=== PATIENT | female | born 1960 | race Caucasian/White ===

== ENCOUNTER 2018-06-23 08:33 | Inpatient (IN) ==
[2018-06-23] MEDS ORDERED: Morphine Inj 4 MG/ML Vial IV.PUSH ONE (09:07)
[2018-06-23] MEDS ORDERED: Sod Chloride 0.9% Inj 1,000 ML IV.CONT SCH (09:15)
[2018-06-23 09:26] LABS: Baso % (Auto) 0.4 % (0.0-2.0); Eos # (Auto) 0.1 th/mm3 (0.0-0.4); Eos % (Auto) 0.8 % (0.0-4.0); Hematocrit 40.4 % (35.0-46.0); Hemoglobin 14.1 gm/dL (11.6-15.3); Lymph # (Auto) 1.8 th/mm3 (1.0-4.8); Lymph % (Auto) 26.1 % (9.0-44.0); Mean Corpuscular HGB Conc 34.9 % (32.0-36.0); Mean Corpuscular Hemoglobin 31.5 pg (27.0-34.0); Mean Corpuscular Volume 90.3 fL (80.0-100.0); Mean Platelet Volume 8.4 fL (7.0-11.0); Mono # (Auto) 0.2 th/mm3 (0.0-0.9); Mono % (Auto) 2.9 % (0.0-8.0); Neut # (Auto) 4.7 th/mm3 (1.8-7.7); Neut % (Auto) 69.8 % (16.0-70.0); Platelet Count 222 th/mm3 (150-450); Red Blood Count 4.47 mil/mm3 (4.00-5.30); Red Cell Distribution Width 15.3 % (11.6-17.2); White Blood Count 6.8 th/mm3 (4.0-11.0)
[2018-06-23 09:57] LABS: Calcium 9.1 mg/dL (8.5-10.1)
[2018-06-23 09:58] LABS: Albumin 2.8 g/dL (3.4-5.0); Carbon Dioxide 28.6 meq/L (21.0-32.0); Glucose,Random 124 mg/dL (74-106); Lipase 111 U/L (73-393)
[2018-06-23 10:01] LABS: Alanine Aminotransferase 47 U/L (10-53); Glomerular Filtration Rate 57 mL/min (>89)
[2018-06-23 10:02] LABS: Total Protein 6.9 g/dL (6.4-8.2)
[2018-06-23 10:04] LABS: Alkaline Phosphatase 85 U/L (45-117); Anion Gap 9 meq/L (5-15); Chloride 106 meq/L (98-107); Sodium 144 meq/L (136-145)
[2018-06-23 10:11] LABS: Blood Urea Nitrogen 27 mg/dL (7-18)
[2018-06-23 10:18] LABS: Aspartate Aminotransferase 21 U/L (15-37)
--- NOTE | 2018-06-23 10:37 | ED ---
HPI General Chief Complaint: Abdominal Pain Stated Complaint: EVAC/Abdom pain Time Seen by Provider: 06/23/18 08:56 Source: patient and family Mode of arrival: ambulatory Limitations: no limitations History of Present Illness HPI narrative: 57-year-old female complains of abdominal pain with nausea vomiting. Patient states that the symptoms started last night. Patient states that the pain is sharp pain stabbing pain localized the right lower quadrant of the abdomen. Patient denies any pain radiation. Patient denies any fever chills. Patient denies any dysuria frequency. Patient denies any vaginal discharge or bleeding. Patient status post 3 in the past. Patient denies any history kidney stone. MD complaint: abdominal pain Onset (ago): hour(s) Pain Consistency: constant Location: RLQ Severity: severe Severity scale (1-10): 10 Quality: stabbing and sharp Radiation: none Migration to: no migration Relieving factors: nothing Exacerbating factors: nothing Associated symptoms: nausea and vomiting Related Data Home Medications Medication Instructions Recorded Confirmed allopurinol 100 mg PO TID 06/23/18 06/23/18 atorvastatin 10 mg PO DAILY 06/23/18 06/23/18 azelastine 1 spray INTRANASAL DAILY 06/23/18 06/23/18 benzonatate 100 mg PO TID PRN 06/23/18 06/23/18 budesonide 0.5 mg INHALATION Q12H 06/23/18 06/23/18 budesonide-formoterol [Symbicort] 2 puff INHALATION BID 06/23/18 06/23/18 cyclobenzaprine 10 mg PO TID PRN 06/23/18 06/23/18 fluticasone 2 spray INTRANASAL DAILY 06/23/18 06/23/18 fluticasone [Flovent HFA] 1 puff INHALATION BID 06/23/18 06/23/18 hydrocodone-acetaminophen 1 tab PO HS 06/23/18 06/23/18 ipratropium bromide 0.5 mg INHALATION Q4H PRN 06/23/18 06/23/18 levofloxacin 500 mg PO DAILY 06/23/18 06/23/18 lisinopril 40 mg PO DAILY 06/23/18 06/23/18 losartan 50 mg PO DAILY 06/23/18 06/23/18 methylprednisolone 4 mg PO DAILY 06/23/18 06/23/18 montelukast 10 mg PO QPM 06/23/18 06/23/18 nabumetone 750 mg PO BID 06/23/18 06/23/18 omeprazole 40 mg PO DAILY 06/23/18 06/23/18 prednisone 06/23/18 pregabalin [Lyrica] 50 mg PO HS 06/23/18 06/23/18 sertraline 50 mg PO DAILY 06/23/18 06/23/18 tiotropium bromide [Spiriva 2 puff INHALATION DAILY 06/23/18 06/23/18 Respimat] tolterodine 4 mg PO DAILY 06/23/18 06/23/18 voriconazole 200 mg PO Q12H 06/23/18 06/23/18 Allergies Allergy/AdvReac Type Severity Reaction Status Date / Time chlorhexidine Allergy Severe Skin Verified 06/23/18 08:54 blisters diclofenac Allergy Severe Hives Verified 06/23/18 08:54 tramadol Allergy Severe Hives Verified 06/23/18 08:54 adhesive Allergy Intermediate Rash Verified 06/23/18 08:54 ketorolac Allergy Intermediate Rash Verified 06/23/18 08:54 Review of Systems ROS: all other systems reviewed are negative PMFSH Social History Social History Substance History: No History of Abuse Smoking Status: Never smoker How Often Do You Have a Drink Containing Alcohol: Never Recent Travel in [facility] within the Last 8 Weeks: No Recent Out of Country Travel within the Last 8 Weeks: No Immunization History Tetanus Immunization: <5 Years Hx Influenza Vaccine This Season: Yes Exam Narrative Exam Narrative: GENERAL: Well-nourished, well-developed patient. SKIN: Focused skin assessment warm/dry. HEAD: Normocephalic. EYES: No scleral icterus. No injection or drainage. NECK: Supple, trachea midline. No JVD or lymphadenopathy. CARDIOVASCULAR: Regular rate and rhythm without murmurs, gallops, or rubs. RESPIRATORY: Breath sounds equal bilaterally. No accessory muscle use. GASTROINTESTINAL: Abdomen soft, nondistended. Patient has moderate tenderness on palpation right lower quadrant of the abdomen. No rebound tenderness. No mass. MUSCULOSKELETAL: No cyanosis, or edema. BACK: Nontender without obvious deformity. No CVA tenderness. Neurologic exam normal. Course Initial Documented Vital Signs Temperature 97.8 F 06/23/18 08:44 Pulse Rate 122 H 06/23/18 08:44 Respiratory Rate 20 06/23/18 08:44 Blood Pressure 138/88 06/23/18 08:44 Pulse Oximetry 96 06/23/18 08:44 Last Documented Vital Signs Temperature 97.8 F 06/23/18 08:44 Pulse Rate 113 H 06/23/18 10:48 Respiratory Rate 20 06/23/18 10:48 Blood Pressure 83/45 L 06/23/18 10:48 Pulse Oximetry 93 L 06/23/18 10:48 Medical Decision Making MDM Narrative Medical decision making narrative: 57-year-old female with right lower quadrant abdominal pain and nausea vomiting. Normal saline solution 1 25 cc an hour. Morphine 4 mg IV. Zofran 4 mg IV. Differential Diagnosis Differential Diagnosis: Differential diagnosis including colitis, appendicitis, ovarian cyst, ovarian torsion, ectopic , nephrolithiasis, pyelonephritis. Lab Data Lab results reviewed: Yes I reviewed the patient's lab results. Result diagrams: 06/23/18 09:20 06/23/18 09:20 Lab Results 06/23/18 06/23/18 Range/Units 09:20 09:20 CBC w Diff Auto diff final WBC 6.8 (4.0-11.0) th/mm3 RBC 4.47 (4.00-5.30) mil/mm3 Hgb 14.1 (11.6-15.3) gm/dL Hct 40.4 (35.0-46.0) % MCV 90.3 (80.0-100.0) fL MCH 31.5 (27.0-34.0) pg MCHC 34.9 (32.0-36.0) % RDW 15.3 (11.6-17.2) % Plt Count 222 (150-450) th/mm3 MPV 8.4 (7.0-11.0) fL Neut % (Auto) 69.8 (16.0-70.0) % Lymph % (Auto) 26.1 (9.0-44.0) % [place] % (Auto) 2.9 (0.0-8.0) % Eos % (Auto) 0.8 (0.0-4.0) % Baso % (Auto) 0.4 (0.0-2.0) % Neut # (Auto) 4.7 (1.8-7.7) th/mm3 Lymph # (Auto) 1.8 (1.0-4.8) th/mm3 [place] # (Auto) 0.2 (0.0-0.9) th/mm3 Eos # (Auto) 0.1 (0.0-0.4) th/mm3 Baso # (Auto) 0.0 (0.0-0.2) th/mm3 WBC Differential . Differential Comment . Sodium 144 (136-145) meq/L Potassium 4.0 (3.5-5.1) meq/L Chloride 106 (98-107) meq/L Carbon Dioxide 28.6 (21.0-32.0) meq/L Anion Gap 9 (5-15) meq/L BUN 27 H (7-18) mg/dL Creatinine 1.00 (0.50-1.00) mg/dL Estimated GFR 57 L (>89) mL/min Random Glucose 124 H (74-106) mg/dL Calcium 9.1 (8.5-10.1) mg/dL Total Bilirubin 0.7 (0.2-1.0) mg/dL AST 21 (15-37) U/L ALT 47 (10-53) U/L Alkaline Phosphatase 85 (45-117) U/L Total Protein 6.9 (6.4-8.2) g/dL Albumin 2.8 L (3.4-5.0) g/dL Lipase 111 (73-393) U/L Imaging Data Attestation: I personally reviewed and interpreted this imaging study as follows : Radiologist's impression: Abdomen/Pelvis CT 06/23/18 09:07 CONCLUSION: 1. There is pneumoperitoneum caused by perforation of the sigmoid colon secondary to diverticulitis. Small pericolonic fluid collection predominately contains air measuring 6.2 x 3.5 cm. Discharge Plan Discharge Disposition Patient Disposition: 30 Still Patient Discharge Details Diagnosis: Diverticulitis of colon with perforation Physicians Team ED Provider: Martín Lewis Primary Care Provider: Dmitriy Lewis Rxs /Orders / Referrals /Forms Prescriptions: No Action losartan 50 mg Tablet 50 mg PO DAILY RF: 0 cyclobenzaprine 10 mg Tablet 10 mg PO TID PRN (Reason: Pain) RF: 0 nabumetone 750 mg Tablet 750 mg PO BID RF: 0 atorvastatin 10 mg Tablet 10 mg PO DAILY RF: 0 tolterodine 4 mg Capsule,Extended Release 24hr 4 mg PO DAILY RF: 0 methylprednisolone 4 mg Tablet 4 mg PO DAILY RF: 0 allopurinol 100 mg Tablet 100 mg PO TID RF: 0 omeprazole 40 mg Capsule,Delayed Release(Dr/Ec) 40 mg PO DAILY RF: 0 prednisone 10 mg Tablets,Dose Pack RF: 0 benzonatate 100 mg Capsule 100 mg PO TID PRN (Reason: Cough) RF: 0 hydrocodone-acetaminophen 7.5-325 mg Tablet 1 tab PO HS RF: 0 budesonide 0.5 mg/2 mL Suspension For Nebulization 0.5 mg INHALATION Q12H RF: 0 montelukast 10 mg Tablet 10 mg PO QPM RF: 0 levofloxacin 500 mg Tablet 500 mg PO DAILY RF: 0 lisinopril 40 mg Tablet 40 mg PO DAILY RF: 0 fluticasone 50 mcg/actuation [place],Suspension 2 spray INTRANASAL DAILY RF: 0 sertraline 50 mg Tablet 50 mg PO DAILY RF: 0 ipratropium bromide 0.02 % Solution 0.5 mg INHALATION Q4H PRN (Reason: Shortness Of Breath) RF: 0 fluticasone [Flovent HFA] 110 mcg/actuation Hfa Aerosol Inhaler 1 puff INHALATION BID RF: 0 voriconazole 200 mg Tablet 200 mg PO Q12H RF: 0 pregabalin [Lyrica] 50 mg Capsule 50 mg PO HS RF: 0 budesonide-formoterol [Symbicort] 160-4.5 mcg/actuation Hfa Aerosol Inhaler 2 puff INHALATION BID RF: 0 azelastine 0.15 % (205.5 mcg) [place],Non-Aerosol 1 spray INTRANASAL DAILY RF: 0 tiotropium bromide [Spiriva Respimat] 1.25 mcg/actuation Mist 2 puff INHALATION DAILY RF: 0 Discharge Interventions Interventions: Vital Signs Last Done: 06/23/18 10:48 Status ED Status: With Doctor
--- NOTE | 2018-06-23 10:42 | CT ---
EXAM DATE: 06/23/2018 10:30 AM EDT AGE/SEX: 57 years / Female INDICATIONS: Right lower quadrant pain. CLINICAL DATA: This is the patient's initial encounter. Patient reports that signs and symptoms have been present for 1 day and indicates a pain score of 8/10. MEDICAL/SURGICAL HISTORY: None. None. ORAL CONTRAST: No oral contrast ingested. RADIATION DOSE: 22.35 CTDI (mGy) COMPARISON: [facility], CT ABDOMEN & PELVIS W CONTRAST, 09/09/2011. . TECHNIQUE: Multiple contiguous axial images were obtained through the abdomen and pelvis following b olus infusion of 95 ml Omnipaque 350 (iohexol) nonionic water-soluble contrast as a single exam dos e. No oral contrast ingested. Using automated exposure control and adjustment of the mA and/or kV ac cording to patient size, radiation dose was kept as low as reasonably achievable to obtain optimal di agnostic quality images. DICOM format image data is available electronically for review and comparis on. FINDINGS: Lower Lungs: The visualized lower lungs are clear. Liver: The liver has a homogeneous density without space-occupying lesion. There is no dilation of th e biliary tree. Spleen: Homogeneous density without enlargement. Pancreas: Unremarkable without mass or calcification. Kidneys: Normal in size and shape. No evidence of mass or hydronephrosis. Adrenal Glands: Unremarkable. Aorta: The aorta and proximal iliac vessels are grossly unremarkable without aneurysmal dilation. Bowel/Mesentery: There is diverticulitis of the sigmoid colon with large amount of pneumoperitoneum. Colonic fluid collection is seen adjacent to the sigmoid colon measuring 6.2 x 3.5 cm which contains minimal fluid and extraluminal air. Copious amount of stool throughout the descending colon. Abdominal Wall: Intact. Retroperitoneum: No evidence of adenopathy in the retrocrural, para-aortic, or deep pelvic regions. Bladder: Contours are smooth. Reproductive Organs: No abnormal masses or calcifications seen. Inguinal: The inguinal region is unremarkable without evidence of adenopathy. Bony Structures: Unremarkable. CONCLUSION: 1. There is pneumoperitoneum caused by perforation of the sigmoid colon secondary to diverticulitis. Small pericolonic fluid collection predominately contains air measuring 6.2 x 3.5 cm. Electronically signed by: Dorian Tabares MD 06/23/2018 10:40 AM EDT
[2018-06-23] MEDS ORDERED: Sod Chloride 0.9% Inj 1,000 ML IV.SIG ONE ×2 (10:52→13:40)
[2018-06-23] MEDS: Sodium Chlor 0.9% Inj 250 ML IV.SIG SCH ×4 (11:00→18:39)
[2018-06-23] MEDS ORDERED: Phenylephrine/NS 1000 MCG/10ML Syringe IV.PUSH ONE (12:00)
[2018-06-23] MEDS ORDERED: Succinylcholine Inj 100 MG/5 ML Syringe IV.PUSH ONE (12:00)
[2018-06-23] MEDS ORDERED: fentaNYL Citrate Inj 100 MCG/2 ML Ampul IV PUSH PRN (14:03)
--- NOTE | 2018-06-23 14:36 | P.HPCC ---
History of Present Illness Service: Critical care medicine Primary Care Physician: Dmitriy Lewis MD Chief Complaint: Abdominal pain, severe History of Present Illness: This 57-year-old woman developed severe left-sided abdominal pain and presented to the [facility] emergency department afebrile and without white blood cell count elevation. CAT scan of the abdomen revealed a large amount of contained peritoneal air surrounding a area of perforated diverticulitis in the sigmoid colon. She is tachycardic and moderately hypotensive considering her normal hypertensive state. By definition she is in severe sepsis and a fluid resuscitation was begun in the [place] emergency department by Dr. Lewis. Arrangements were made to rapidly transfer her to the [facility] hospital surgical intensive care unit where I have met her on her arrival. Her care is complicated by a crescendo pattern of asthma which is required several hospitalizations recently at [facility]. Most recently she has been on a high-dose steroid taper and is down to prednisone 30 mg daily. She has been evaluated previously by a dishtank operator for reactive airway disease, possibly related to mold exposure according to her records. - Diagnosis (1) Severe sepsis (2) Tachycardia (3) Diverticulitis of colon with perforation Inpatient Certification: I certify that the inpatient services were ordered in accordance with Medicare regulations governing the order. This includes certification that hospital inpatient services are reasonable and necessary and in the case of services not specified as inpatient-only under 42 CFR 419.22(n), that they are appropriately provided as inpatient services in accordance to with the 2-midnight benchmark under 43 CFR 412.3(e) Estimated Total Length of Stay (Days): 5 Plans for Post Hospital Care: Home Review of Systems Abdominal pain, chills, constipation. Shortness of breath. 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 - Medical History Medical History: Medical History (Last Reviewed 06/24/18 @ 06:38 by Caio Byers) Asthma Hypertension after donor nephrectomy requiring medication - Surgical History Surgical History: Surgical History (Last Reviewed 06/24/18 @ 06:38 by Caio Byers) H/O abdominal hysterectomy H/O sinus surgery History of surgery on arm Hx of tonsillectomy Previous section - Tobacco History Smoking Status: Never smoker - Alcohol History How Often Do You Have a Drink Containing Alcohol: Never - Substance Use History Substance History: No History of Abuse - Travel History Recent Travel in the [place] Within the Last 8 Weeks: No Recent Travel Out of the Country Within the Last 8 Weeks: No - Immunization History Tetanus Immunization: <5 Years Hx Influenza Vaccine This Season: Yes Medications and Allergies Active Medications: Active Medications Albuterol (Duoneb Neb (Prn)) 1 ampul NEB Q2HR NEB PRN PRN Reason: WHEEZING Famotidine (Pepcid Pf Inj) 20 mg IV.PUSH Q12HR SHANDRA Fentanyl Citrate (Fentanyl Inj) 50 mcg IV PUSH Q1H PRN PRN Reason: Pain scale 6-10, &/or sedation Sodium Chloride (Ns Inj) 1,000 mls @ 125 mls/hr IV.CONT .Q8H SHANDRA Stop: 06/23/18 17:14 Last Admin: 06/23/18 09:14 Dose: 125 mls/hr Sodium Chloride (Ns Inj) 250 mls @ 15 mls/hr IV.SIG ONCE SHANDRA Stop: 06/24/18 03:39 Piperacillin/Tazobactam/Dextrose (Zosyn 4.5 Gm Premix) 4.5 gm in 100 mls @ 200 mls/hr IV.SIG Q6H SHANDRA Ondansetron HCl (Zofran Inj) 4 mg IV.PUSH Q6H PRN PRN Reason: NAUSEA OR VOMITING Sodium Chloride (Ns Flush) 2 ml IV.FLUSH BID SHANDRA Sodium Chloride (Ns Flush) 2 ml IV.FLUSH PRN PRN PRN Reason: FLUSH AFTER USING IV ACCESS Home Medications Medication Instructions Recorded Confirmed allopurinol 100 mg PO TID 06/23/18 06/23/18 atorvastatin 10 mg PO DAILY 06/23/18 06/23/18 azelastine 1 spray INTRANASAL DAILY 06/23/18 06/23/18 benzonatate 100 mg PO TID PRN 06/23/18 06/23/18 budesonide 0.5 mg INHALATION Q12H 06/23/18 06/23/18 budesonide-formoterol [Symbicort] 2 puff INHALATION BID 06/23/18 06/23/18 cyclobenzaprine 10 mg PO TID PRN 06/23/18 06/23/18 fluticasone 2 spray INTRANASAL DAILY 06/23/18 06/23/18 fluticasone [Flovent HFA] 1 puff INHALATION BID 06/23/18 06/23/18 hydrocodone-acetaminophen 1 tab PO HS 06/23/18 06/23/18 ipratropium bromide 0.5 mg INHALATION Q4H PRN 06/23/18 06/23/18 levofloxacin 500 mg PO DAILY 06/23/18 06/23/18 lisinopril 40 mg PO DAILY 06/23/18 06/23/18 losartan 50 mg PO DAILY 06/23/18 06/23/18 methylprednisolone 4 mg PO DAILY 06/23/18 06/23/18 montelukast 10 mg PO QPM 06/23/18 06/23/18 nabumetone 750 mg PO BID 06/23/18 06/23/18 omeprazole 40 mg PO DAILY 06/23/18 06/23/18 prednisone 06/23/18 pregabalin [Lyrica] 50 mg PO HS 06/23/18 06/23/18 sertraline 50 mg PO DAILY 06/23/18 06/23/18 tiotropium bromide [Spiriva 2 puff INHALATION DAILY 06/23/18 06/23/18 Respimat] tolterodine 4 mg PO DAILY 06/23/18 06/23/18 voriconazole 200 mg PO Q12H 06/23/18 06/23/18 Allergies Allergy/AdvReac Type Severity Reaction Status Date / Time chlorhexidine Allergy Severe Skin Verified 06/23/18 08:54 blisters diclofenac Allergy Severe Hives Verified 06/23/18 08:54 tramadol Allergy Severe Hives Verified 06/23/18 08:54 adhesive Allergy Intermediate Rash Verified 06/23/18 08:54 ketorolac Allergy Intermediate Rash Verified 06/23/18 08:54 Home Medications Medication Instructions Recorded Confirmed Type allopurinol 100 mg PO TID 06/23/18 06/23/18 History atorvastatin 10 mg PO DAILY 06/23/18 06/23/18 History azelastine 1 spray INTRANASAL DAILY 06/23/18 06/23/18 History benzonatate 100 mg PO TID PRN 06/23/18 06/23/18 History budesonide 0.5 mg INHALATION Q12H 06/23/18 06/23/18 History budesonide-formoterol [Symbicort] 2 puff INHALATION BID 06/23/18 06/23/18 History cyclobenzaprine 10 mg PO TID PRN 06/23/18 06/23/18 History fluticasone 2 spray INTRANASAL DAILY 06/23/18 06/23/18 History fluticasone [Flovent HFA] 1 puff INHALATION BID 06/23/18 06/23/18 History hydrocodone-acetaminophen 1 tab PO HS 06/23/18 06/23/18 History ipratropium bromide 0.5 mg INHALATION Q4H PRN 06/23/18 06/23/18 History levofloxacin 500 mg PO DAILY 06/23/18 06/23/18 History lisinopril 40 mg PO DAILY 06/23/18 06/23/18 History losartan 50 mg PO DAILY 06/23/18 06/23/18 History methylprednisolone 4 mg PO DAILY 06/23/18 06/23/18 History montelukast 10 mg PO QPM 06/23/18 06/23/18 History nabumetone 750 mg PO BID 06/23/18 06/23/18 History omeprazole 40 mg PO DAILY 06/23/18 06/23/18 History prednisone 06/23/18 History pregabalin [Lyrica] 50 mg PO HS 06/23/18 06/23/18 History sertraline 50 mg PO DAILY 06/23/18 06/23/18 History tiotropium bromide [Spiriva 2 puff INHALATION DAILY 06/23/18 06/23/18 History Respimat] tolterodine 4 mg PO DAILY 06/23/18 06/23/18 History voriconazole 200 mg PO Q12H 06/23/18 06/23/18 History Results - Labs CBC & Chem 7: 06/24/18 05:30 06/24/18 05:30 Labs: Short CBC 06/23/18 Range/Units 09:20 WBC 6.8 (4.0-11.0) th/mm3 Hgb 14.1 (11.6-15.3) gm/dL Hct 40.4 (35.0-46.0) % Plt Count 222 (150-450) th/mm3 BMP 06/23/18 09:20 Sodium 144 Potassium 4.0 Chloride 106 Carbon Dioxide 28.6 BUN 27 H Creatinine 1.00 Calcium 9.1 Liver Function 06/23/18 Range/Units 09:20 Total Bilirubin 0.7 (0.2-1.0) mg/dL AST 21 (15-37) U/L ALT 47 (10-53) U/L Alkaline Phosphatase 85 (45-117) U/L Albumin 2.8 L (3.4-5.0) g/dL - Imaging Impressions Abdomen/Pelvis CT 06/23/18 09:07 CONCLUSION: 1. There is pneumoperitoneum caused by perforation of the sigmoid colon secondary to diverticulitis. Small pericolonic fluid collection predominately contains air measuring 6.2 x 3.5 cm. Exam Vital signs: Vital Signs 06/23/18 08:44 06/23/18 09:17 06/23/18 10:48 Temperature 97.8 F Pulse Rate 122 H 119 H 113 H Respiratory Rate 20 20 20 Blood Pressure 138/88 153/93 H 83/45 L Pulse Oximetry 96 95 93 L 06/23/18 11:11 06/23/18 11:49 06/23/18 13:10 Temperature Pulse Rate 114 H 113 H 120 H Respiratory Rate 20 20 20 Blood Pressure 119/65 101/51 L 109/56 L Pulse Oximetry 94 L 06/23/18 13:45 Temperature Pulse Rate 126 H Respiratory Rate 20 Blood Pressure 97/56 L Pulse Oximetry Intake & Output 06/22/18 06/23/18 06/23/18 18:59 06:59 18:59 Weight 103.873 kg Narrative: General: Severe distress from abdominal pain Head: Atraumatic, flushed Neck: Supple airway widely patent Lungs: Light wheezes, good bilateral air movement Heart: Normal S1-S2, regular rate and rhythm, no JVD. Abdomen: Moderately distended with firm guarding. Diffuse peritoneal irritation with impressive rebound pain. Bowel sounds quiet. Extremities: Flushed: Well-perfused. Neuro: Anxious, severe distress from abdominal pain. Oriented 3, conversant, appropriate. Moves 4 limbs to command. Caprini VTE Risk Assessment Caprini VTE Risk Assessment: Moderate/High Risk (score >= 2) VTE Pharmacological Exception Reason: High risk for bleeding Caprini Risk Assessment Model: Point Value = 1 Point Value = 2 Point Value = 3 Point Value = 5 Age 41-60 Minor surgery BMI > 25 kg/m2 Swollen legs Varicose veins or History of unexplained or recurrent spontaneous Oral contraceptives or hormone replacement Sepsis (< 1 month) Serious lung disease, including pneumonia (< 1 month) Abnormal pulmonary function Acute myocardial infarction Congestive heart failure (< 1 month) History of inflammatory bowel disease Medical patient at bed rest Age 61-74 Arthroscopic surgery Major open surgery (> 45 min) Laparoscopic surgery (> 45 min) Malignancy Confined to bed (> 72 hours) Immobilizing plaster cast Central venous access Age >= 75 History of VTE Family history of VTE Factor V Leiden Prothrombin [id number] Lupus anticoagulant Anticardiolipin antibodies Elevated serum homocysteine Heparin-induced thrombocytopenia Other congenital or acquired thrombophilia Stroke (< 1 month) Elective arthroplasty Hip, pelvis, or leg fracture Acute spinal cord injury (< 1 month) Prophylaxis Regimen: Total Risk Factor Score Risk Level Prophylaxis Regimen 0-1 Low Early ambulation 2 Moderate Order ONE of the following: *Sequential Compression Device (SCD) *Heparin 5000 units SQ BID 3-4 Higher Order ONE of the following medications: *Heparin 5000 units SQ TID *Enoxaparin/Lovenox 40 mg SQ daily (WT < 150 kg, CrCl > 30 mL/min) *Enoxaparin/Lovenox 30 mg SQ daily (WT < 150 kg, CrCl > 10-29 mL/min) *Enoxaparin/Lovenox 30 mg SQ BID (WT < 150 kg, CrCl > 30 mL/min) AND/OR *Sequential Compression Device (SCD) 5 or more Highest Order ONE of the following medications: *Heparin 5000 units SQ TID (Preferred with Epidurals) *Enoxaparin/Lovenox 40 mg SQ daily (WT < 150 kg, CrCl > 30 mL/min) *Enoxaparin/Lovenox 30 mg SQ daily (WT < 150 kg, CrCl > 10-29 mL/min) *Enoxaparin/Lovenox 30 mg SQ BID (WT < 150 kg, CrCl > 30 mL/min) AND *Sequential Compression Device (SCD) Assessment and Plan - Problem List (1) Severe sepsis Code(s): A41.9 - Sepsis, unspecified organism; R65.20 - Severe sepsis without septic shock Status: Acute (2) Tachycardia Code(s): R00.0 - Tachycardia, unspecified Status: Acute (3) Diverticulitis of colon with perforation Code(s): K57.20 - Diverticulitis of large intestine with perforation and abscess without bleeding Status: Acute - Assessment and Plan Plan: Plan: Neuro: -Continuous infusion fentanyl basal analgesia -Supplement with every hour as needed fentanyl 50 mcg -Avoid oversedation due to likely obstructive sleep apnea Cardiovascular: -Long-term problematic hypertension, home meds include ARB and KEELY-I, hold for now -Aggressive hydration with 2 L isotonic saline now -Low-dose levo fed may be indicated to maintain map over 65. Respiratory: -Long-standing history of wheezing and bronchospasm without smoking, concern for cardiac source. -Recent hospitalization for asthma and presently on long-term high-dose steroid taper, prednisone 30 mg daily. -We will cover her with hydrocortisone 50 mg every 6 hours intravenous and add albuterol nebs. -Bronchodilators, inhaled -Keep head of bed up 30-40 Gastrointestinal: -Strict n.p.o., may benefit from nasogastric tube decompression -General surgery service to examine -Antibiotic coverage for gram-negative organisms and anaerobic bacteria Renal: -Taylor will be required for hourly urine output during resuscitation -Prerenal azotemia, follow closely Infectious disease: -Antibiotic coverage with Pipracil and tazobactam -Discontinue Levaquin -Culture for fevers -Follow WBC Hematology: -Serial CBC Prophylaxis: -SCDs, Pepcid IV -Chemical DVT prophylaxis until decisions made regarding possible surgery. Overall impression: This woman is critically ill with severe sepsis related to acute spontaneous perforation of the sigmoid colon. Etiology is acute diverticulitis. Following early aggressive resuscitation main severely tachycardic and relatively hypotensive compared to her normal hypertensive baseline. Her steroids have probably attenuated the typical fever and leukocytosis, but she is clearly septic. She will require ongoing aggressive intravenous hydration and may well require early source control surgery. Critical care time 45 minutes aside from invasive procedures. (3) Diverticulitis of colon with perforation Qualifiers: Diverticulitis bleeding: unspecified bleeding status Qualified Code(s): K57.20 - Diverticulitis of large intestine with perforation and abscess without bleeding
[2018-06-23] MEDS ORDERED: Sod Chloride 0.9% Inj 2,000 ML IV.SIG ONE (14:38)
[2018-06-23] MEDS: fentaNYL 10 mcg/mL Premix Drip 2,500 MCG/250 ML BAG IV.SIG PRN (15:05)
[2018-06-23] MEDS: Piperacil/Tazo 4.5 GM Premix 4.5 GM/100 ML BAG IV.SIG SCH ×2 (16:36→21:48)
[2018-06-23] MEDS ORDERED: RESP: Albuterol Concentrated 2.5 MG/0.5 ML Neb NEB PRN (16:41)
[2018-06-23] MEDS ORDERED: SODIUM CHLOR 0.9% IV.SIG SCH (17:00)
[2018-06-23] MEDS ORDERED: HYDROCORTISONE IV.SIG SCH (17:00)
[2018-06-23] MEDS ORDERED: Norepinephrine Inj 4 MG/4 ML Ampul ONE (17:09)
[2018-06-23] MEDS ORDERED: Bupivacaine/Epinephrine Inj 0.25% 50 ML Vial ONE (17:17)
[2018-06-23] MEDS ORDERED: MethylPREDNISolone Sod Succinate Inj 125 MG/2 ML Vial ONE (17:27)
[2018-06-23] MEDS: Hydrocortisone Sod Succinate 100 MG Vial IV.PUSH SCH ×2 (19:00→23:57)
[2018-06-23 19:39] LABS: ABG Base Excess -2.3 mmol/L (-2-2); ABG PCO2 38 mmHg (38-42); ABG PO2 247 mmHG (61-120)
--- NOTE | 2018-06-23 19:57 | MB ---
cc: Huey Agee MD DATE: 06/23/2018 CHIEF COMPLAINT: Abdominal pain, perforated sigmoid diverticulitis. HISTORY OF PRESENT ILLNESS: The patient is a 57-year-old female who presents with an acute onset of abdominal pain. The patient states she developed pain approximately 24 hours ago with acute onset, 10/10, currently remains a 10/10, severe, constant, sharp, worse with movement, better with lying still. She states she has had several hospitalizations for asthma and reactive airway disease along with a pulmonary fungal infection. She had subsequently been discharged and then developed severe abdominal pain. She was noted to be hypotensive upon being at [facility]. She had further workup including a CT scan showing a perforation with multiple intra-abdominal air spots diffusely throughout the abdomen. She was transferred to [place] for further management. On my exam, the patient is noted to have severe tenderness with profound rebound as well as guarding. She will be a planned for emergent exploration. PAST MEDICAL HISTORY: Obesity, asthma, degenerative joint disease, pulmonary fungal infection. PAST SURGICAL HISTORY: No intra-abdominal surgeries. SOCIAL HISTORY: Denies smoking, ETOH or IVDA. ALLERGIES: CHLORHEXIDINE, DICLOFENAC, TRAMADOL, ADHESIVES, KETOROLAC. MEDICATIONS: See EMR, steroid taper. FAMILY HISTORY: Denies diabetes or hypertension. REVIEW OF SYSTEMS: GENERAL: Denies fevers, chills. HEENT: Denies eye pain, ear pain. NECK: No swelling or pain. LUNGS: Complains of cough. Denies wheeze. HEART: Complains of palpitations. Denies chest pain. ABDOMEN: Complains of abdominal pain, nausea. Denies vomiting. GENITOURINARY: Denies dysuria or hematuria. ENDOCRINE: Denies polyuria or polydipsia. INTEGUMENT: Denies any masses or lesions. NEUROLOGIC: Denies numbness or tingling. PHYSICAL EXAMINATION: GENERAL: The patient is in moderate distress. VITAL SIGNS: Temperature 98.2, pulse 126, respirations 20, blood pressure 97/56, saturation 99%. HEENT: Pupils equal, round, reactive. NECK: Supple. Trachea midline. LUNGS: Bilateral expansion. HEART: S1, S2, tachycardia. ABDOMEN: Positive tenderness to palpation and rebound, peritoneal signs. SKIN: Discoloration from Lovenox shots, peritoneal signs. EXTREMITIES: Warm and well perfused. NEUROLOGIC: GCS of 15, 5/5 motor in all extremities. PSYCHIATRIC: Appropriate mood, appropriate judgment. LABORATORY AND DIAGNOSTIC DATA: WBC 6.8, hemoglobin 14.1, hematocrit 40.4, platelets 222. Sodium 144, potassium 4, chloride 106, BUN 27, creatinine 1, bilirubin 0.7, AST 21, ALT 47, lipase 111, albumin 2.8. CT reviewed by myself showing a contained perforation in the pericolonic sigmoid area along with multiple areas of intra-abdominal free air. ASSESSMENT AND PLAN: The patient is a 57-year-old female with diverticulitis perforation, acute abdomen. PLAN: After a full workup, the patient with the above-noted issues. At this point, the patient needs to undergo an emergent diagnostic laparoscopy and exploratory laparotomy with likely colostomy. Discussed in detail with the patient that the surgery is emergent and if feasible, we will try and avoid colostomy and do an anastomosis. However, in light of the patient's recent steroid usage, emergency situation and concern with an unprepped bowel, the patient will likely warrant a colostomy. The patient understands this, agrees and would like to proceed. The patient will be n.p.o., IV fluids, IV pain control, antibiotics. The patient will be in the ICU with close observation given the severity of the situation. MD CONCEPCION Lind/wilbert , 05:19 PM , 05:30 PM
--- NOTE | 2018-06-23 20:36 | P.OP ---
- Preoperative Diagnosis (1) Diverticulitis of colon with perforation - Postoperative Diagnosis (1) Diverticulitis of colon with perforation Date of procedure: 06/23/18 Procedure: dx lap, ex lap, sigmoid resection colostomy jp Anesthesia: GETA Surgeon: Huey Agee MD Estimated blood loss (mL): 30 Pathology: other (sigmoid) Operation and Findings: large perforation of sigmoid diverticula contamination
[2018-06-23] MEDS: Propofol 1000 mg/100 ml Inj 1,000 MG/100 ML BOTTLE IV.CONT PRN (21:00)
[2018-06-23] MEDS ORDERED: fentaNYL 10 mcg/mL Premix Drip 2,500 MCG/250 ML BAG IV.SIG PRN (21:11)
[2018-06-23] MEDS ORDERED: Potassium Chlor 20 mEq Premix 20 MEQ/100 ML PIGGYBACK IV.SIG PRN ×2 (21:15)
[2018-06-23] MEDS ORDERED: Potassium Chloride 25 MEQ Effervescent Tablet PO PRN (21:15)
[2018-06-23] MEDS ORDERED: Potassium Chlor 40 mEq Premix 40 MEQ/100 ML PIGGYBACK IV.SIG PRN ×2 (21:15)
[2018-06-23] MEDS ORDERED: Magnesium Sulfate Inj 4 GM in Sodium Chlor 0.9% Inj 92 ML IV.SIG PRN (21:15)
[2018-06-23] MEDS ORDERED: Potassium Phosphate Inj 30 MMOL in Sodium Chlor 0.9% Inj 250 ML IV.SIG PRN (21:15)
[2018-06-23] MEDS ORDERED: Magnesium Sulfate Inj 2 GM in Sodium Chlor 0.9% Inj 96 ML IV.SIG PRN (21:15)
[2018-06-23] MEDS ORDERED: Sodium Phosphate Inj 30 MMOL in Sodium Chlor 0.9% Inj 250 ML IV.SIG PRN (21:15)
[2018-06-23] MEDS ORDERED: Magnesium Oxide 400 MG Tablet PO PRN (21:15)
[2018-06-23] MEDS ORDERED: Potassium Phosphate 500 MG Soluble Tablet PO PRN ×2 (21:15)
[2018-06-23] MEDS ORDERED: Dextrose 50% in Water 50 ML Vial IV.PUSH PRN (21:15)
[2018-06-23] MEDS ORDERED: Phenylephrine Inj 160 MG in Sodium Chlor 0.9% Inj 484 ML IV.CONT PRN (21:16)
[2018-06-23 21:46] LABS: Baso % (Auto) 0.1 % (0.0-2.0); Eos % (Auto) 0.2 % (0.0-4.0); Hematocrit 33.7 % (35.0-46.0); Hemoglobin 11.4 gm/dL (11.6-15.3); Lymph # (Auto) 0.5 th/mm3 (1.0-4.8); Lymph % (Auto) 5.2 % (9.0-44.0); Mean Corpuscular HGB Conc 33.9 % (32.0-36.0); Mean Corpuscular Hemoglobin 31.8 pg (27.0-34.0); Mean Corpuscular Volume 93.8 fL (80.0-100.0); Mean Platelet Volume 8.2 fL (7.0-11.0); Mono # (Auto) 0.2 th/mm3 (0.0-0.9); Mono % (Auto) 2.1 % (0.0-8.0); Neut # (Auto) 9.3 th/mm3 (1.8-7.7); Neut % (Auto) 92.4 % (16.0-70.0); Platelet Count 197 th/mm3 (150-450); Red Blood Count 3.59 mil/mm3 (4.00-5.30); Red Cell Distribution Width 15.4 % (11.6-17.2)
--- NOTE | 2018-06-23 21:56 | XR ---
EXAM DATE: 06/23/2018 9:27 PM EDT AGE/SEX: 57 years / Female INDICATIONS: Intubation. CLINICAL DATA: This is the patient's subsequent encounter. Patient reports that signs and symptoms h ave been present for 1 day and indicates a pain score of Nonresponsive. MEDICAL/SURGICAL HISTORY: None. None. COMPARISON: [facility], CHEST SINGLE AP, 05/16/2016. . FINDINGS: Single AP view of the chest. Endotracheal tube is in place with the tip 8 mm above the lisseth. Nasoga stric tube is in place with the tip in the distal stomach. Lungs are clear. No evidence of pleural ef fusion or pneumothorax. Cardiomediastinal silhouette within normal limits. CONCLUSION: 1. Endotracheal tube tip just above the lisseth and could be retracted several centimeters. 2. Lungs are clear. Electronically signed by: James Erwin MD 06/23/2018 9:55 PM EDT
[2018-06-23 22:19] LABS: Lymphocytes 1 % (9-44)
[2018-06-23 22:21] LABS: Carbon Dioxide 23.1 meq/L (21.0-32.0); Potassium 4.8 meq/L (3.5-5.1)
[2018-06-23 22:36] LABS: Total Protein 4.5 g/dL (6.4-8.2)
[2018-06-23 22:40] LABS: ABG Base Excess -3.1 mmol/L (-2-2); ABG PCO2 32 mmHg (38-42); ABG PO2 201 mmHg (61-120)
[2018-06-24] MEDS: Famotidine PF Inj 20 MG/2 ML Vial IV.PUSH SCH ×3 (00:11→21:12)
[2018-06-24] MEDS: Insulin NovoLOG Aspart Correctional Sugar Inj SQ SCH ×4 (00:12→19:28)
[2018-06-24] MEDS: Oral Hygiene Kit OROPHARYNG SCH ×4 (00:12→18:25)
[2018-06-24 01:04] LABS: Activated Partial Thrombo Time 26.2 sec (24.3-30.1); Prothrombin Time 10.3 sec (9.8-11.6)
[2018-06-24] MEDS: Propofol 1000 mg/100 ml Inj 1,000 MG/100 ML BOTTLE IV.CONT PRN ×2 (02:21→06:48)
[2018-06-24] MEDS: Piperacil/Tazo 4.5 GM Premix 4.5 GM/100 ML BAG IV.SIG SCH ×4 (03:36→21:13)
[2018-06-24 05:53] LABS: Hematocrit 30.2 % (35.0-46.0); Hemoglobin 10.5 gm/dL (11.6-15.3); Lymph # (Auto) 0.3 th/mm3 (1.0-4.8); Lymph % (Auto) 2.8 % (9.0-44.0); Mean Corpuscular HGB Conc 34.7 % (32.0-36.0); Mean Corpuscular Hemoglobin 32.2 pg (27.0-34.0); Mean Corpuscular Volume 92.9 fL (80.0-100.0); Mean Platelet Volume 7.8 fL (7.0-11.0); Mono # (Auto) 0.2 th/mm3 (0.0-0.9); Mono % (Auto) 1.9 % (0.0-8.0); Neut # (Auto) 11.7 th/mm3 (1.8-7.7); Neut % (Auto) 95.3 % (16.0-70.0); Platelet Count 171 th/mm3 (150-450); Red Blood Count 3.25 mil/mm3 (4.00-5.30); Red Cell Distribution Width 15.5 % (11.6-17.2); White Blood Count 12.3 th/mm3 (4.0-11.0)
[2018-06-24 06:15] LABS: Albumin 1.6 g/dL (3.4-5.0); Calcium 7.6 mg/dL (8.5-10.1); Carbon Dioxide 21.9 meq/L (21.0-32.0); Magnesium 1.9 mg/dL (1.5-2.5); Phosphorus 3.6 mg/dL (2.5-4.9); Potassium 3.8 meq/L (3.5-5.1); Total Protein 4.8 g/dL (6.4-8.2)
[2018-06-24] MEDS: Hydrocortisone Sod Succinate 100 MG Vial IV.PUSH SCH (06:38)
--- NOTE | 2018-06-24 08:10 | P.PNCC ---
Subjective Subjective Remarks/Hospital Course: - Diagnosis (1) Severe sepsis (2) Tachycardia (3) Diverticulitis of colon with perforation (4) Asthma, Bronchospasm This 57-year-old woman developed severe left-sided abdominal pain and presented to the [facility] emergency department afebrile and without white blood cell count elevation. CAT scan of the abdomen revealed a large amount of contained peritoneal air surrounding a area of perforated diverticulitis in the sigmoid colon. She is tachycardic and moderately hypotensive considering her normal hypertensive state. By definition she is in severe sepsis and a fluid resuscitation was begun in the [place] emergency department by Dr. Lewis. Arrangements were made to rapidly transfer her to the [facility] surgical intensive care unit where I have met her on her arrival. Her care is complicated by a crescendo pattern of asthma which is required several hospitalizations recently at [facility]. Most recently she has been on a high-dose steroid taper and is down to prednisone 30 mg daily. She has been evaluated previously by a excellence specialist for reactive airway disease, possibly related to mold exposure according to her records. 06/24: Sigmoid resection last night with end colostomy. Urine output marginal but renal function maintained. Acid-base balance normal. Problems with bronchospasm perioperatively and during the night. Presently moving air well. I 'll convert hydrocortisone to solumedrol now that BP acceptable. Objective Vital Signs / I&O: Vital Signs 06/23/18 08:44 06/23/18 09:17 06/23/18 10:48 Temperature 97.8 F Pulse Rate 122 H 119 H 113 H Respiratory Rate 20 20 20 Blood Pressure 138/88 153/93 H 83/45 L Pulse Oximetry 96 95 93 L 06/23/18 11:11 06/23/18 11:49 06/23/18 13:10 Temperature Pulse Rate 114 H 113 H 120 H Respiratory Rate 20 20 20 Blood Pressure 119/65 101/51 L 109/56 L Pulse Oximetry 94 L 06/23/18 13:45 06/23/18 15:55 06/23/18 16:00 Temperature 97.8 F Pulse Rate 126 H 125 H Respiratory Rate 20 22 32 H Blood Pressure 97/56 L 125/60 Pulse Oximetry 100 06/23/18 21:00 06/23/18 21:05 06/23/18 23:42 Temperature 98.7 F Pulse Rate 90 90 Respiratory Rate 16 16 16 Blood Pressure 106/61 Pulse Oximetry 100 100 97 06/24/18 00:00 06/24/18 03:37 06/24/18 04:00 Temperature 98.7 F 99.0 F Pulse Rate 92 H 91 H 90 Respiratory Rate 16 16 16 Blood Pressure 138/67 106/61 Pulse Oximetry 100 94 L 96 Intake & Output 06/23/18 06/24/18 06/24/18 18:59 06:59 18:59 Intake Total 350 / 350 5367.5 / 5367.5 Output Total 1350 / 1350 Balance 350 / 350 4017.5 / 4017.5 Weight 109 kg 116.3 kg Intake: IV 350 / 350 1367.5 / 1367.5 LR 1000 mL Inj 1,000 ML @ 150 980 / 980 mls/hr IV.CONT .Q6H40M [facility] Rx#: [id number] Diprivan 1000 mg/100 ml Inj 1, 187.5 / 187.5 000 mg In 100 ml @ 5 MCG/KG/MIN 3.27 mls/hr IV.CONT TITRATE PRN Rx#:[id number] Levaquin 750 mg Premix Inj 150 150 / 150 ML @ 100 mls/hr IV.SIG ONCE ONE Rx#:[id number] Zosyn 4.5 GM Premix 4.5 gm In 100 / 100 200 / 200 100 ml @ 200 mls/hr IV.SIG Q6H [facility] Rx#:[id number] Flagyl 500 MG Inj 100 ML @ 100 100 / 100 mls/hr IV.SIG ONCE ONE Rx#: [id number] Anesthesia Amount 4000 / 4000 Output: Estimated Blood Loss 40 / 40 Urine Amount (Catheter) 1050 / 1050 Indwelling Urethral Catheter 1050 / 1050 Stool Amount (Stoma) 0 / 0 Left Lower Abdomen 0 / 0 Wound Drainage 260 / 260 # 1 Right Lateral Abdomen 260 / 260 Other: # Bowel Movements 0 Weight On Admission 109 kg Result Diagrams: 06/24/18 05:30 06/24/18 05:30 Objective Remarks: General: Intubated and sedated Head: Atraumatic, flushed Neck: Supple, orally intubated. Lungs: Light wheezes, good bilateral air movement Heart: Normal S1-S2, regular rate and rhythm, no JVD. Abdomen: Moderately distended, guarding. Stoma pink. Bowel sounds quiet. Extremities: Flushed: Well-perfused. Neuro: Intubated and sedated. Moves 4 limbs to stimulation Assessment and Plan - Problem List (1) Severe sepsis Code(s): A41.9 - Sepsis, unspecified organism; R65.20 - Severe sepsis without septic shock Status: Acute (2) Tachycardia Code(s): R00.0 - Tachycardia, unspecified Status: Acute (3) Diverticulitis of colon with perforation Code(s): K57.20 - Diverticulitis of large intestine with perforation and abscess without bleeding Status: Acute - Assessment and Plan Plan: Plan: Neuro: -Continuous infusion fentanyl basal analgesia -Supplement with every hour as needed fentanyl 50 mcg -Avoid oversedation due to likely obstructive sleep apnea Cardiovascular: -Long-term problematic hypertension, home meds include ARB and KEELY-I, hold for now -Maintenance hydration -Taper off low-dose levo fed may be indicated to maintain map over 65. Respiratory: -Long-standing history of wheezing and bronchospasm without smoking, concern for cardiac source. -Recent hospitalization for asthma and presently on long-term high-dose steroid taper, prednisone 30 mg daily. -We will cover her with hydrocortisone 50 mg every 6 hours intravenous and add albuterol nebs. -Bronchodilators, inhaled -Keep head of bed up 30-40 Gastrointestinal: -Strict n.p.o., may benefit from nasogastric tube decompression -General surgery service following -Antibiotic coverage for gram-negative organisms and anaerobic bacteria Renal: -Taylor will be required for hourly urine output during resuscitation -Prerenal azotemia resolved, follow closely Infectious disease: -Antibiotic coverage with Pipracil and tazobactam -Discontinue Levaquin -Culture for fevers -Follow WBC Hematology: -Serial CBC Prophylaxis: -SCDs, Pepcid IV -Chemical DVT will be started today Overall impression: This woman remains critically ill with severe sepsis related to acute spontaneous perforation of the sigmoid colon. Etiology is acute diverticulitis. Her steroids have probably attenuated the typical fever and leukocytosis, but she is clearly septic. She has required ongoing aggressive intravenous hydration and early source control surgery. Problems with bronchospasm perioperatively are consistent with her recent history of asthma attacks. Her respiratory status remains unstable. Critical care time 48 minutes aside from invasive procedures. (3) Diverticulitis of colon with perforation Qualifiers: Diverticulitis bleeding: unspecified bleeding status Qualified Code(s): K57.20 - Diverticulitis of large intestine with perforation and abscess without bleeding
[2018-06-24] MEDS: Hypromellose 0.3% Opth Gel 10 GM Bottle EACH EYE SCH ×2 (09:10→21:12)
[2018-06-24] MEDS: MethylPREDNISolone Sod Succinate Inj 40 MG/ML Vial IV.PUSH SCH ×3 (09:20→21:11)
[2018-06-24] MEDS: fentaNYL 10 mcg/mL Premix Drip 2,500 MCG/250 ML BAG IV.SIG PRN (12:41)
[2018-06-24] MEDS: Lisinopril 20 MG Tablet PO SCH (15:45)
--- NOTE | 2018-06-24 16:34 | ECG ---
Date Performed: 06/23/2018 Time Performed: 16:59:56 PTAGE: 57 years EKG: Sinus tachycardia. Possible anterior infarct Abnormal ECG Since the PREVIOUS TRACING , no significant change noted PREVIOUS TRACIN02/09/2016 07.50.42 DOCTOR: Adri Barney Interpretating Date/Time 06/24/2018 16:34:18
--- NOTE | 2018-06-24 21:14 | P.PNGS ---
Subjective Patient reports: feels better (extubated this am) Physical Exam Vital signs: Vital Signs 06/23/18 23:42 06/24/18 00:00 06/24/18 03:37 Temperature 98.7 F Pulse Rate 90 92 H 91 H Respiratory Rate 16 16 16 Blood Pressure 138/67 Pulse Oximetry 97 100 94 L 06/24/18 04:00 06/24/18 08:00 06/24/18 08:11 Temperature 99.0 F 98.9 F Pulse Rate 90 86 85 Respiratory Rate 16 12 12 Blood Pressure 106/61 106/59 L Pulse Oximetry 96 94 L 06/24/18 08:38 06/24/18 10:00 06/24/18 12:00 Temperature 98.7 F Pulse Rate 100 H 97 H Respiratory Rate 10 L 20 Blood Pressure 159/80 H Pulse Oximetry 95 94 L 06/24/18 14:00 06/24/18 15:33 06/24/18 16:00 Temperature 98.3 F Pulse Rate 107 H 99 H 102 H Respiratory Rate 22 20 Blood Pressure 177/82 H Pulse Oximetry 92 L 06/24/18 18:00 06/24/18 19:32 Temperature Pulse Rate 96 H 98 H Respiratory Rate 22 Blood Pressure Pulse Oximetry 96 Intake & Output 06/24/18 06/24/18 06/25/18 06:59 18:59 06:59 Intake Total 5367.5 / 5367.5 1540 / 1540 Output Total 1350 / 1350 820 / 820 Balance 4017.5 / 4017.5 720 / 720 Weight 116.3 kg Intake: IV 1367.5 / 1367.5 1540 / 1540 LR 1000 mL Inj 1,000 ML @ 150 980 / 980 1000 / 1000 mls/hr IV.CONT .Q6H40M [facility] Rx#: [id number] Diprivan 1000 mg/100 ml Inj 1, 187.5 / 187.5 90 / 90 000 mg In 100 ml @ 5 MCG/KG/MIN 3.27 mls/hr IV.CONT TITRATE PRN Rx#:[id number] Zosyn 4.5 GM Premix 4.5 gm In 200 / 200 200 / 200 100 ml @ 200 mls/hr IV.SIG Q6H [facility] Rx#:[id number] fentaNYL 10 mcg/mL Premix Drip 250 / 250 2,500 mcg In 250 ml @ 50 MCG/HR 5 mls/hr IV.SIG TITRATE PRN Rx #:[id number] Anesthesia Amount 4000 / 4000 Output: Estimated Blood Loss 40 / 40 Urine Amount (Catheter) 1050 / 1050 650 / 650 Indwelling Urethral Catheter 1050 / 1050 650 / 650 Stool Amount (Stoma) 0 / 0 0 / 0 Left Lower Abdomen 0 / 0 0 / 0 Wound Drainage 260 / 260 170 / 170 # 1 Right Lateral Abdomen 260 / 260 170 / 170 Other: # Bowel Movements 0 - Routine Abdominal Exam Present: soft (jp good seal, eleuterio seropurulent, ostomy pink) - Urinary Catheter Management Indwelling Urethral Catheter Cath placed during this visit: yes Reason for continuing: Other continuation reason Insertion time: 15:00 Assessment and Plan - Plan POD 1 Perf divertculitis, Septic shock PLAN ng sxn abx pain control eleuterio sxn keep jp appreciate isc input await pulm recs
--- NOTE | 2018-06-24 22:46 | MB ---
cc: Romulo Gaming MD, Peter K MD DATE: 06/24/2018 REQUESTING PHYSICIAN: Corey Hughes MD REASON FOR CONSULTATION: Bronchial asthma. HISTORY OF PRESENT ILLNESS: Ms. Zamudio is a pleasant 57-year-old female with severe asthma, which is recently getting worse over the last few months because of some exposures at her work. She has received multiple courses of steroids. Currently, she was being maintained on 30 mg of prednisone because of the persistent asthma and persistent cough. She presented at [facility] with a sudden onset of left lower quadrant abdominal pain, which was more a stabbing type of pain. She did not have any fever or chills. No nausea, no vomiting, no headache. Because of the pain, she came to the emergency room. She had a CT scan of the abdomen done and was found to have free peritoneal air. The patient was transferred to [facility]. She was resuscitated with IV fluids. The patient was seen by Dr. Agee and she underwent surgery. She was found to have diverticulitis of the colon with perforation and she had an exploratory laparotomy with sigmoid resection and colostomy. Currently, she is feeling much better. She has mild pain and mild shortness of breath. No fever, chills or night sweats. PAST MEDICAL HISTORY: Significant for a history of bronchial asthma, hypertension, history of hysterectomy. MEDICATIONS: She is currently taking albuterol nebulizer treatment, budesonide nebulizer treatment 0.5 mg twice a day, famotidine 20 mg a day, fentanyl drip, lisinopril 40 mg a day, Solu-Medrol 40 mg q.8 hours, Zosyn 4.5 grams q. 6 hours, potassium supplement. ALLERGIES: SHE IS ALLERGIC TO DICLOFENAC, TRAMADOL, ADHESIVE TAPE AND KETOROLAC. SOCIAL HISTORY: She has no history of smoking or alcohol abuse. FAMILY HISTORY: Noncontributory. REVIEW OF SYSTEMS: She has mild pain. Normally, she is up, around and active. She has increasing shortness of breath and persistent wheezing. No DVT or pulmonary embolism. PHYSICAL EXAMINATION: GENERAL: Well-built, well-nourished female in mild pain, not in any acute distress. VITAL SIGNS: Blood pressure 177/82, heart rate 102, respirations 20, temperature 98.3. HEENT: Pupils are equal and reactive to light. Oral mucosa and nasal mucosa normal. NECK: Supple. No JVD noted. CHEST: Has exp rhonchi. CARDIOVASCULAR: S1, S2 normal. ABDOMEN: Status post surgery. EXTREMITIES: No edema. IMPRESSION: 1. Bronchial asthma. 2. Persistent cough. 3. Diverticulitis with perforation, status post sigmoid colectomy and colostomy. PLAN: I discussed with the patient, her son and [id number] at the bedside. We will give her IV Solu-Medrol, aerosol treatments, supplemental oxygen, encourage her to use incentive spirometry and continue her antibiotic. We will wean her oxygen. Further treatment will depend on the course in the hospital. Thank you, Dr. Hughes, for this consult. MD BANG Reagan/wilbert/john , 06:47 PM , 06:58 PM [facility]
[2018-06-25] MEDS: Insulin NovoLOG Aspart Correctional Sugar Inj SQ SCH ×5 (01:00→23:15)
[2018-06-25] MEDS: Oral Hygiene Kit OROPHARYNG SCH ×5 (01:00→23:16)
[2018-06-25 03:46] LABS: Baso % (Auto) 0.1 % (0.0-2.0); Hematocrit 29.3 % (35.0-46.0); Hemoglobin 10.2 gm/dL (11.6-15.3); Lymph # (Auto) 0.4 th/mm3 (1.0-4.8); Lymph % (Auto) 1.9 % (9.0-44.0); Mean Corpuscular HGB Conc 34.9 % (32.0-36.0); Mean Corpuscular Hemoglobin 31.8 pg (27.0-34.0); Mean Corpuscular Volume 91.1 fL (80.0-100.0); Mono # (Auto) 0.6 th/mm3 (0.0-0.9); Mono % (Auto) 3.2 % (0.0-8.0); Neut # (Auto) 18.1 th/mm3 (1.8-7.7); Neut % (Auto) 94.8 % (16.0-70.0); Platelet Count 194 th/mm3 (150-450); Red Blood Count 3.21 mil/mm3 (4.00-5.30); Red Cell Distribution Width 15.3 % (11.6-17.2); White Blood Count 19.1 th/mm3 (4.0-11.0)
[2018-06-25] MEDS: Piperacil/Tazo 4.5 GM Premix 4.5 GM/100 ML BAG IV.SIG SCH ×4 (04:00→21:05)
[2018-06-25 04:26] LABS: Anion Gap 9 meq/L (5-15); Blood Urea Nitrogen 19 mg/dL (7-18); Calcium 8.6 mg/dL (8.5-10.1); Carbon Dioxide 26.3 meq/L (21.0-32.0); Chloride 109 meq/L (98-107); Glomerular Filtration Rate Greater Than 89 mL/min (>89); Glucose,Random 124 mg/dL (74-106); Potassium 4.1 meq/L (3.5-5.1); Sodium 144 meq/L (136-145)
[2018-06-25] MEDS: MethylPREDNISolone Sod Succinate Inj 40 MG/ML Vial IV.PUSH SCH ×3 (05:20→21:05)
[2018-06-25] MEDS: fentaNYL 10 mcg/mL Premix Drip 2,500 MCG/250 ML BAG IV.SIG PRN (05:23)
[2018-06-25] MEDS: Lisinopril 20 MG Tablet PO SCH (09:00)
[2018-06-25] MEDS: Famotidine PF Inj 20 MG/2 ML Vial IV.PUSH SCH ×2 (09:00→20:21)
[2018-06-25] MEDS: Hypromellose 0.3% Opth Gel 10 GM Bottle EACH EYE SCH ×2 (09:01→20:20)
[2018-06-25] MEDS ORDERED: Vancomycin Inj 1 GM/200 ML PIGGYBACK IV.SIG ONE (12:33)
--- NOTE | 2018-06-25 12:39 | P.PNCC ---
Subjective Subjective Remarks/Hospital Course: - Diagnosis (1) Severe sepsis (2) Tachycardia (3) Diverticulitis of colon with perforation (4) Asthma, Bronchospasm This 57-year-old woman developed severe left-sided abdominal pain and presented to the [facility] emergency department afebrile and without white blood cell count elevation. CAT scan of the abdomen revealed a large amount of contained peritoneal air surrounding a area of perforated diverticulitis in the sigmoid colon. She is tachycardic and moderately hypotensive considering her normal hypertensive state. By definition she is in severe sepsis and a fluid resuscitation was begun in the [place] emergency department by Dr. Lewis. Arrangements were made to rapidly transfer her to the [facility] surgical intensive care unit where I have met her on her arrival. Her care is complicated by a crescendo pattern of asthma which is required several hospitalizations recently at [facility]. Most recently she has been on a high-dose steroid taper and is down to prednisone 30 mg daily. She has been evaluated previously by a office copy selector for reactive airway disease, possibly related to mold exposure according to her records. 06/24: Sigmoid resection last night with end colostomy. Urine output marginal but renal function maintained. Acid-base balance normal. Problems with bronchospasm perioperatively and during the night. Presently moving air well. I 'll convert hydrocortisone to solumedrol now that BP acceptable. 06/25: Lying in bed breathing competitively improved per patient. WBC count elevated 20.7 today. Afebrile. Abdomen nondistended. I will check blood cultures and 1 dose of vancomycin. WBC count elevation most likely secondary to sepsis and steroids Objective Vital Signs / I&O: Vital Signs 06/24/18 14:00 06/24/18 15:33 06/24/18 16:00 Temperature 98.3 F Pulse Rate 107 H 99 H 102 H Respiratory Rate 22 20 Blood Pressure 177/82 H Pulse Oximetry 92 L 06/24/18 18:00 06/24/18 19:32 06/24/18 20:00 Temperature 98.4 F Pulse Rate 96 H 98 H 99 H Respiratory Rate 22 20 Blood Pressure 164/86 H Pulse Oximetry 96 93 L 06/24/18 22:00 06/24/18 23:13 06/25/18 00:00 Temperature 98.5 F Pulse Rate 98 H 109 H 94 H Respiratory Rate 23 10 L Blood Pressure 157/92 H Pulse Oximetry 94 L 06/25/18 02:00 06/25/18 03:14 06/25/18 04:00 Temperature 98.4 F Pulse Rate 93 H 94 H 100 H Respiratory Rate 16 24 Blood Pressure 158/76 H Pulse Oximetry 94 L 06/25/18 06:00 06/25/18 07:29 06/25/18 07:45 Temperature Pulse Rate 95 H 92 H Respiratory Rate 20 20 Blood Pressure Pulse Oximetry 96 06/25/18 08:00 06/25/18 10:00 06/25/18 12:00 Temperature 98.5 F 97.8 F Pulse Rate 105 H 96 H 90 Respiratory Rate Blood Pressure 174/82 H 160/91 H Pulse Oximetry 96 96 06/25/18 12:17 Temperature Pulse Rate 94 H Respiratory Rate 12 Blood Pressure Pulse Oximetry Intake & Output 06/24/18 06/25/18 06/25/18 18:59 06:59 18:59 Intake Total 1540 / 1540 2450 / 2450 1000 / 1000 Output Total 820 / 820 350 / 350 Balance 720 / 720 2100 / 2100 1000 / 1000 Weight 115 kg Intake: IV 1540 / 1540 2450 / 2450 1000 / 1000 LR 1000 mL Inj 1,000 ML @ 150 1000 / 1000 2000 / 2000 1000 / 1000 mls/hr IV.CONT .Q6H40M [facility] Rx#: [id number] Diprivan 1000 mg/100 ml Inj 1, 90 / 90 000 mg In 100 ml @ 5 MCG/KG/MIN 3.27 mls/hr IV.CONT TITRATE PRN Rx#:[id number] Zosyn 4.5 GM Premix 4.5 gm In 200 / 200 200 / 200 100 ml @ 200 mls/hr IV.SIG Q6H [facility] Rx#:[id number] fentaNYL 10 mcg/mL Premix Drip 250 / 250 250 / 250 2,500 mcg In 250 ml @ 50 MCG/HR 5 mls/hr IV.SIG TITRATE PRN Rx #:[id number] Output: Urine 350 / 350 Urine Amount (Catheter) 650 / 650 Indwelling Urethral Catheter 650 / 650 Stool Amount (Stoma) 0 / 0 Left Lower Abdomen 0 / 0 Wound Drainage 170 / 170 # 1 Right Lateral Abdomen 170 / 170 Result Diagrams: 06/25/18 03:20 06/25/18 03:20 Objective Remarks: General: Lying in bed comfortably in no acute distress Head: Atraumatic, flushed Neck: Supple, no JVD Lungs: Light wheezes, good bilateral air movement Heart: Normal S1-S2, regular rate and rhythm, no JVD. Abdomen: Mildly distended, no guarding. Stoma pink. Bowel sounds quiet. Extremities: Flushed: Well-perfused. Neuro: Alert awake oriented. Appears in good spirits. Moves all extremities no focal deficits Assessment and Plan - Problem List (1) Severe sepsis Code(s): A41.9 - Sepsis, unspecified organism; R65.20 - Severe sepsis without septic shock Status: Acute (2) Tachycardia Code(s): R00.0 - Tachycardia, unspecified Status: Acute (3) Diverticulitis of colon with perforation Code(s): K57.20 - Diverticulitis of large intestine with perforation and abscess without bleeding Status: Acute - Assessment and Plan Plan: Plan: Neuro: -Continuous infusion fentanyl basal analgesia -Supplement with every hour as needed fentanyl 50 mcg -Avoid oversedation due to likely obstructive sleep apnea Cardiovascular: -Long-term problematic hypertension, home meds include ARB and KEELY-I, hold for now -Maintenance hydration -Started on Catapres patch and lisinopril yesterday. -Add as needed Catapres p.o. for SBP more than 170 Respiratory: -Long-standing history of wheezing and bronchospasm without smoking, concern for cardiac source. -Recent hospitalization for asthma and presently on long-term high-dose steroid taper, prednisone 30 mg daily. -Continue hydrocortisone 50 mg every 6 hours intravenous and add albuterol nebs. -Bronchodilators, inhaled -Keep head of bed up 30-40 Gastrointestinal/ID: -Strict n.p.o. except meds, nasogastric tube decompression -General surgery service following -Antibiotic coverage for gram-negative organisms and anaerobic bacteria -Continue Zosyn and give 1 dose of vancomycin. Send blood cultures 2 -WBC count increased now 20.7. Continue to monitor closely Renal: -Taylor will be required for hourly urine output during resuscitation -Prerenal azotemia resolved, follow closely Hematology: -Serial CBC Prophylaxis: -SCDs, Pepcid IV -Chemical DVT prophylaxis Overall impression: This woman remains critically ill with severe sepsis related to acute spontaneous perforation of the sigmoid colon. Etiology is acute diverticulitis. Her steroids have probably attenuated the typical fever and leukocytosis, but she is clearly septic. She has required ongoing aggressive intravenous hydration and early source control surgery. Problems with bronchospasm perioperatively are consistent with her recent history of asthma attacks. Her respiratory status remains unstable. Critical care time 32 minutes aside from invasive procedures. (3) Diverticulitis of colon with perforation Qualifiers: Diverticulitis bleeding: unspecified bleeding status Qualified Code(s): K57.20 - Diverticulitis of large intestine with perforation and abscess without bleeding
[2018-06-25] MEDS ORDERED: Vancomycin Inj 1,000 MG in Sodium Chlor 0.9% Inj 250 ML IV.SIG ONE (14:00)
--- NOTE | 2018-06-25 17:52 | P.PNGS ---
Subjective Patient reports: no new complaints (breathing stable, ng in place, no bowel fxn , pain controlled) Physical Exam Vital signs: Vital Signs 06/24/18 18:00 06/24/18 19:32 06/24/18 20:00 Temperature 98.4 F Pulse Rate 96 H 98 H 99 H Respiratory Rate 22 20 Blood Pressure 164/86 H Pulse Oximetry 96 93 L 06/24/18 22:00 06/24/18 23:13 06/25/18 00:00 Temperature 98.5 F Pulse Rate 98 H 109 H 94 H Respiratory Rate 23 10 L Blood Pressure 157/92 H Pulse Oximetry 94 L 06/25/18 02:00 06/25/18 03:14 06/25/18 04:00 Temperature 98.4 F Pulse Rate 93 H 94 H 100 H Respiratory Rate 16 24 Blood Pressure 158/76 H Pulse Oximetry 94 L 06/25/18 06:00 06/25/18 07:29 06/25/18 07:45 Temperature Pulse Rate 95 H 92 H Respiratory Rate 20 20 Blood Pressure Pulse Oximetry 96 06/25/18 08:00 06/25/18 10:00 06/25/18 12:00 Temperature 98.5 F 97.8 F Pulse Rate 105 H 96 H 90 Respiratory Rate 19 10 L Blood Pressure 174/82 H 160/91 H Pulse Oximetry 96 96 06/25/18 12:17 06/25/18 14:00 06/25/18 16:00 Temperature 98.1 F Pulse Rate 94 H 83 86 Respiratory Rate 12 11 L Blood Pressure 115/76 Pulse Oximetry 95 06/25/18 16:30 Temperature Pulse Rate 83 Respiratory Rate 10 L Blood Pressure Pulse Oximetry Intake & Output 06/24/18 06/25/18 06/25/18 18:59 06:59 18:59 Intake Total 1540 / 1540 2450 / 2450 1100 / 1100 Output Total 820 / 820 350 / 350 Balance 720 / 720 2100 / 2100 1100 / 1100 Weight 115 kg Intake: IV 1540 / 1540 2450 / 2450 1100 / 1100 LR 1000 mL Inj 1,000 ML @ 150 1000 / 1000 2000 / 2000 1000 / 1000 mls/hr IV.CONT .Q6H40M [facility] Rx#: [id number] Diprivan 1000 mg/100 ml Inj 1, 90 / 90 000 mg In 100 ml @ 5 MCG/KG/MIN 3.27 mls/hr IV.CONT TITRATE PRN Rx#:[id number] Zosyn 4.5 GM Premix 4.5 gm In 200 / 200 200 / 200 100 / 100 100 ml @ 200 mls/hr IV.SIG Q6H [facility] Rx#:[id number] fentaNYL 10 mcg/mL Premix Drip 250 / 250 250 / 250 2,500 mcg In 250 ml @ 50 MCG/HR 5 mls/hr IV.SIG TITRATE PRN Rx #:[id number] Output: Urine 350 / 350 Urine Amount (Catheter) 650 / 650 Indwelling Urethral Catheter 650 / 650 Stool Amount (Stoma) 0 / 0 Left Lower Abdomen 0 / 0 Wound Drainage 170 / 170 # 1 Right Lateral Abdomen 170 / 170 - Routine Abdominal Exam Present: soft (jp c/d/i, good seal, eleuterio seropurulent, ostomy pink viable) - Urinary Catheter Management Indwelling Urethral Catheter Cath placed during this visit: yes Reason for continuing: Other continuation reason Insertion time: 15:00 Assessment and Plan - Plan POD 1 Perf divertculitis, Septic shock, leukocytosis- possible sepsis vs steriods PLAN ng sxn abx pain control eleuterio sxn keep jp appreciate isc input await pulm recs monitor labs
--- NOTE | 2018-06-25 19:21 | P.PNPL ---
Subjective Interval history: 57 YOWF with Br asthma, s/p perforatedsigmoid diverticulitis Breathing better Cough better On NC NGT to suction Physical Exam Vital signs: Vital Signs 06/24/18 19:32 06/24/18 20:00 06/24/18 22:00 Temperature 98.4 F Pulse Rate 98 H 99 H 98 H Respiratory Rate 22 20 Blood Pressure 164/86 H Pulse Oximetry 96 93 L 06/24/18 23:13 06/25/18 00:00 06/25/18 02:00 Temperature 98.5 F Pulse Rate 109 H 94 H 93 H Respiratory Rate 23 10 L Blood Pressure 157/92 H Pulse Oximetry 94 L 06/25/18 03:14 06/25/18 04:00 06/25/18 06:00 Temperature 98.4 F Pulse Rate 94 H 100 H 95 H Respiratory Rate 16 24 Blood Pressure 158/76 H Pulse Oximetry 94 L 06/25/18 07:29 06/25/18 07:45 06/25/18 08:00 Temperature 98.5 F Pulse Rate 92 H 105 H Respiratory Rate 20 20 19 Blood Pressure 174/82 H Pulse Oximetry 96 96 06/25/18 10:00 06/25/18 12:00 06/25/18 12:17 Temperature 97.8 F Pulse Rate 96 H 90 94 H Respiratory Rate 10 L 12 Blood Pressure 160/91 H Pulse Oximetry 96 06/25/18 14:00 06/25/18 16:00 06/25/18 16:30 Temperature 98.1 F Pulse Rate 83 86 83 Respiratory Rate 11 L 10 L Blood Pressure 115/76 Pulse Oximetry 95 06/25/18 18:00 Temperature Pulse Rate 90 Respiratory Rate Blood Pressure Pulse Oximetry Intake & Output 06/25/18 06/25/18 06/26/18 06:59 18:59 06:59 Intake Total 2450 / 2450 1450 / 1450 Output Total 350 / 350 Balance 2100 / 2100 1450 / 1450 Weight 115 kg Intake: IV 2450 / 2450 1450 / 1450 LR 1000 mL Inj 1,000 ML @ 150 2000 / 2000 1000 / 1000 mls/hr IV.CONT .Q6H40M [facility] Rx#: [id number] Zosyn 4.5 GM Premix 4.5 gm In 200 / 200 200 / 200 100 ml @ 200 mls/hr IV.SIG Q6H [facility] Rx#:[id number] Vancomycin Inj 1,000 MG In NS 250 / 250 Inj 250 ML @ 250 mls/hr IV.SIG ONCE ONE Rx#:[id number] fentaNYL 10 mcg/mL Premix Drip 250 / 250 2,500 mcg In 250 ml @ 50 MCG/HR 5 mls/hr IV.SIG TITRATE PRN Rx #:[id number] Output: Urine 350 / 350 GENERAL: WBWN, NAD SKIN: Warm and dry. HEAD: Normocephalic. EYES: No scleral icterus. No injection or drainage. NECK: Supple, trachea midline. No JVD or lymphadenopathy. CARDIOVASCULAR: Regular rate and rhythm without murmurs, gallops, or rubs. RESPIRATORY: Breath sounds equal bilaterally. No accessory muscle use. GASTROINTESTINAL: Abdomen soft, non-tender, nondistended. MUSCULOSKELETAL: No cyanosis, or edema. BACK: Nontender without obvious deformity. No CVA tenderness. - Urinary Catheter Management Indwelling Urethral Catheter Cath placed during this visit: yes Reason for continuing: Other continuation reason Insertion time: 15:00 Assessment and Plan - Plan IMPRESSION: 1. Bronchial asthma. 2. Persistent cough. 3. Diverticulitis with perforation, status post sigmoid colectomy and colostomy. PLAN: Aerosol nebs IV Solumedrol Supplement 02 supplement 02 NGT to suction
--- NOTE | 2018-06-26 02:49 | XR ---
EXAM DATE: 06/26/2018 2:40 AM EDT AGE/SEX: 57 years / Female INDICATIONS: Shortness of breath. CLINICAL DATA: This is the patient's subsequent encounter. Patient reports that signs and symptoms h ave been present for 4 - 6 days and indicates a pain score of Nonresponsive. MEDICAL/SURGICAL HISTORY: None. None. COMPARISON: [facility] [place], CHEST 1V SINGLE AP, 06/23/2018. . FINDINGS: A single AP view of the chest demonstrates the lungs to be symmetrically aerated without evidence of mass, infiltrate or effusion. The cardiomediastinal contours are unremarkable. Nasogastric tube with tip in stomach. Endotracheal tube removed. Osseous structures are intact. CONCLUSION: No acute cardiopulmonary disease. Electronically signed by: Dorian Tabares MD 06/26/2018 2:48 AM EDT
[2018-06-26] MEDS: Oral Hygiene Kit OROPHARYNG SCH ×3 (03:24→15:29)
[2018-06-26] MEDS: Piperacil/Tazo 4.5 GM Premix 4.5 GM/100 ML BAG IV.SIG SCH ×4 (03:25→22:45)
[2018-06-26 04:33] LABS: Hematocrit 25.8 % (35.0-46.0); Hemoglobin 8.9 gm/dL (11.6-15.3); Lymph # (Auto) 0.4 th/mm3 (1.0-4.8); Lymph % (Auto) 2.8 % (9.0-44.0); Mean Corpuscular HGB Conc 34.6 % (32.0-36.0); Mean Corpuscular Hemoglobin 32.1 pg (27.0-34.0); Mean Corpuscular Volume 92.9 fL (80.0-100.0); Mean Platelet Volume 7.8 fL (7.0-11.0); Mono # (Auto) 0.6 th/mm3 (0.0-0.9); Mono % (Auto) 3.9 % (0.0-8.0); Neut # (Auto) 14.7 th/mm3 (1.8-7.7); Neut % (Auto) 93.3 % (16.0-70.0); Platelet Count 171 th/mm3 (150-450); Red Blood Count 2.77 mil/mm3 (4.00-5.30); Red Cell Distribution Width 15.3 % (11.6-17.2); White Blood Count 15.8 th/mm3 (4.0-11.0)
[2018-06-26 04:58] LABS: Albumin 1.6 g/dL (3.4-5.0); Anion Gap 8 meq/L (5-15); Aspartate Aminotransferase 30 U/L (15-37); Blood Urea Nitrogen 24 mg/dL (7-18); Calcium 8.7 mg/dL (8.5-10.1); Carbon Dioxide 27.2 meq/L (21.0-32.0); Chloride 109 meq/L (98-107); Glomerular Filtration Rate Greater Than 89 mL/min (>89); Glucose,Random 134 mg/dL (74-106); Potassium 3.7 meq/L (3.5-5.1); Sodium 144 meq/L (136-145)
[2018-06-26 05:00] LABS: Alanine Aminotransferase 33 U/L (10-53)
[2018-06-26 05:02] LABS: Alkaline Phosphatase 62 U/L (45-117); Total Protein 5.6 g/dL (6.4-8.2)
[2018-06-26] MEDS: MethylPREDNISolone Sod Succinate Inj 40 MG/ML Vial IV.PUSH SCH ×2 (05:39→22:26)
[2018-06-26] MEDS: Insulin NovoLOG Aspart Correctional Sugar Inj SQ SCH ×3 (05:39→17:21)
[2018-06-26] MEDS: Lisinopril 20 MG Tablet PO SCH (08:10)
[2018-06-26] MEDS: Famotidine PF Inj 20 MG/2 ML Vial IV.PUSH SCH ×2 (08:11→22:29)
[2018-06-26] MEDS: fentaNYL 10 mcg/mL Premix Drip 2,500 MCG/250 ML BAG IV.SIG PRN (08:12)
[2018-06-26] MEDS: Hypromellose 0.3% Opth Gel 10 GM Bottle EACH EYE SCH ×2 (08:34→22:33)
--- NOTE | 2018-06-26 10:45 | P.PNGS ---
Subjective Patient reports: pain is less (wbc improving, no nausea) Physical Exam Vital signs: Vital Signs 06/25/18 12:00 06/25/18 12:17 06/25/18 14:00 Temperature 97.8 F Pulse Rate 90 94 H 83 Respiratory Rate 10 L 12 Blood Pressure 160/91 H Pulse Oximetry 96 06/25/18 16:00 06/25/18 16:30 06/25/18 18:00 Temperature 98.1 F Pulse Rate 86 83 90 Respiratory Rate 11 L 10 L Blood Pressure 115/76 Pulse Oximetry 95 06/25/18 19:55 06/25/18 20:00 06/25/18 22:00 Temperature 98.9 F Pulse Rate 82 86 97 H Respiratory Rate 16 13 Blood Pressure 150/77 H Pulse Oximetry 98 98 06/25/18 23:37 06/26/18 00:00 06/26/18 02:00 Temperature 98.8 F Pulse Rate 94 H 91 H 94 H Respiratory Rate 16 10 L Blood Pressure 142/77 H Pulse Oximetry 96 06/26/18 03:33 06/26/18 04:00 06/26/18 06:00 Temperature 98.7 F Pulse Rate 83 88 75 Respiratory Rate 16 16 Blood Pressure 163/83 H Pulse Oximetry 96 06/26/18 07:48 06/26/18 08:00 06/26/18 08:40 Temperature 97.9 F Pulse Rate 65 64 Respiratory Rate 20 12 12 Blood Pressure 179/89 H Pulse Oximetry 98 97 06/26/18 10:00 Temperature Pulse Rate 96 H Respiratory Rate Blood Pressure Pulse Oximetry Intake & Output 06/25/18 06/26/18 06/26/18 18:59 06:59 18:59 Intake Total 1570 / 1570 200 / 200 5250 / 5250 Output Total 550 / 550 425 / 425 Balance 1020 / 1020 -225 / -225 5250 / 5250 Weight 119 kg Intake: IV 1450 / 1450 200 / 200 5250 / 5250 LR 1000 mL Inj 1,000 ML @ 150 1000 / 1000 mls/hr IV.CONT .Q6H40M [facility] Rx#: [id number] Zosyn 4.5 GM Premix 4.5 gm In 200 / 200 200 / 200 100 ml @ 200 mls/hr IV.SIG Q6H [facility] Rx#:[id number] Vancomycin Inj 1,000 MG In NS 250 / 250 Inj 250 ML @ 250 mls/hr IV.SIG ONCE ONE Rx#:[id number] fentaNYL 10 mcg/mL Premix Drip 250 / 250 2,500 mcg In 250 ml @ 50 MCG/HR 5 mls/hr IV.SIG TITRATE PRN Rx #:[id number] Other 120 / 120 Output: Urine Amount (Catheter) 450 / 450 425 / 425 Indwelling Urethral Catheter 450 / 450 425 / 425 Stool Amount (Stoma) 0 / 0 0 / 0 Left Lower Abdomen 0 / 0 0 / 0 Gastric Drainage 75 / 75 Right Nare Nasogastric Tube 75 / 75 Wound Drainage 25 / 25 # 1 Right Lateral Abdomen 25 / 25 - Routine Abdominal Exam Present: soft (jp in place, ostomy pink no output, eleuterio sang) - Urinary Catheter Management Indwelling Urethral Catheter Cath placed during this visit: yes Reason for continuing: Other continuation reason Insertion time: 15:00 Assessment and Plan - Plan POD 1 Perf divertculitis, Septic shock, leukocytosis- possible sepsis vs steriods PLAN ng sxn- will consider clamp trial tomorrow abx pain control eleuterio sxn keep jp appreciate isc input await pulm recs monitor labs- wbc improving consider transfer to floor today or tomorrow mcfarland needed for strict Is and Os- will remove tomorrow am
--- NOTE | 2018-06-26 12:31 | P.PNCC ---
Subjective Subjective Remarks/Hospital Course: - Diagnosis (1) Severe sepsis (2) Tachycardia (3) Diverticulitis of colon with perforation (4) Asthma, Bronchospasm This 57-year-old woman developed severe left-sided abdominal pain and [facility] afebrile and without white blood cell count elevation. CAT scan of the abdomen revealed a large amount of contained peritoneal air surrounding a area of perforated diverticulitis in the sigmoid colon. She is tachycardic and moderately hypotensive considering her normal hypertensive state. By definition she is in severe sepsis and a fluid resuscitation was begun in the [place] emergency department by Dr. Lewis. Arrangements were made to rapidly transfer her to the [facility] surgical intensive care unit where I have met her on her arrival. Her care is complicated by a crescendo pattern of asthma which is required several hospitalizations recently at [facility]. Most recently she has been on a high-dose steroid taper and is down to prednisone 30 mg daily. She has been evaluated previously by a web architect for reactive airway disease, possibly related to mold exposure according to her records. 06/24: Sigmoid resection last night with end colostomy. Urine output marginal but renal function maintained. Acid-base balance normal. Problems with bronchospasm perioperatively and during the night. Presently moving air well. I 'll convert hydrocortisone to solumedrol now that BP acceptable. 06/25: Lying in bed breathing competitively improved per patient. WBC count elevated 20.7 today. Afebrile. Abdomen nondistended. I will check blood cultures and 1 dose of vancomycin. WBC count elevation most likely secondary to sepsis and steroids 06/26: Overall patient is feeling better. Breathing more comfortably. WBC count decreased to 15 K today. Blood cultures remain negative. Will change fentanyl infusion to fentanyl patch at 50 mcg/h Objective Vital Signs / I&O: Vital Signs 06/25/18 14:00 06/25/18 16:00 06/25/18 16:30 Temperature 98.1 F Pulse Rate 83 86 83 Respiratory Rate 11 L 10 L Blood Pressure 115/76 Pulse Oximetry 95 06/25/18 18:00 06/25/18 19:55 06/25/18 20:00 Temperature 98.9 F Pulse Rate 90 82 86 Respiratory Rate 16 13 Blood Pressure 150/77 H Pulse Oximetry 98 98 06/25/18 22:00 06/25/18 23:37 06/26/18 00:00 Temperature 98.8 F Pulse Rate 97 H 94 H 91 H Respiratory Rate 16 10 L Blood Pressure 142/77 H Pulse Oximetry 96 06/26/18 02:00 06/26/18 03:33 06/26/18 04:00 Temperature 98.7 F Pulse Rate 94 H 83 88 Respiratory Rate 16 16 Blood Pressure 163/83 H Pulse Oximetry 96 06/26/18 06:00 06/26/18 07:48 06/26/18 08:00 Temperature 97.9 F Pulse Rate 75 65 64 Respiratory Rate 20 12 Blood Pressure 179/89 H Pulse Oximetry 98 97 06/26/18 08:40 06/26/18 10:00 06/26/18 11:41 Temperature Pulse Rate 96 H 80 Respiratory Rate 12 20 Blood Pressure Pulse Oximetry Intake & Output 06/25/18 06/26/18 06/26/18 18:59 06:59 18:59 Intake Total 1570 / 1570 200 / 200 5250 / 5250 Output Total 550 / 550 425 / 425 Balance 1020 / 1020 -225 / -225 5250 / 5250 Weight 119 kg Intake: IV 1450 / 1450 200 / 200 5250 / 5250 LR 1000 mL Inj 1,000 ML @ 150 1000 / 1000 mls/hr IV.CONT .Q6H40M [facility] Rx#: [id number] Zosyn 4.5 GM Premix 4.5 gm In 200 / 200 200 / 200 100 ml @ 200 mls/hr IV.SIG Q6H [facility] Rx#:[id number] Vancomycin Inj 1,000 MG In NS 250 / 250 Inj 250 ML @ 250 mls/hr IV.SIG ONCE ONE Rx#:[id number] fentaNYL 10 mcg/mL Premix Drip 250 / 250 2,500 mcg In 250 ml @ 50 MCG/HR 5 mls/hr IV.SIG TITRATE PRN Rx #:[id number] Other 120 / 120 Output: Urine Amount (Catheter) 450 / 450 425 / 425 Indwelling Urethral Catheter 450 / 450 425 / 425 Stool Amount (Stoma) 0 / 0 0 / 0 Left Lower Abdomen 0 / 0 0 / 0 Gastric Drainage 75 / 75 Right Nare Nasogastric Tube 75 / 75 Wound Drainage 25 / 25 # 1 Right Lateral Abdomen 25 / 25 Result Diagrams: 06/26/18 03:46 06/26/18 03:46 Objective Remarks: General: Lying in bed comfortably in no acute distress Head: Atraumatic, normocephalic Neck: Supple, no JVD Lungs: Light wheezes, good bilateral air movement Heart: Normal S1-S2, regular rate and rhythm, no JVD. Abdomen: Mildly distended, no guarding. Stoma pink. Bowel sounds quiet. Extremities: Well-perfused. Neuro: Alert awake oriented. Appears in good spirits. Moves all extremities no focal deficits Assessment and Plan - Problem List (1) Severe sepsis Code(s): A41.9 - Sepsis, unspecified organism; R65.20 - Severe sepsis without septic shock Status: Acute (2) Tachycardia Code(s): R00.0 - Tachycardia, unspecified Status: Acute (3) Diverticulitis of colon with perforation Code(s): K57.20 - Diverticulitis of large intestine with perforation and abscess without bleeding Status: Acute - Assessment and Plan Plan: Plan: Neuro: -Start fentanyl patch at 50 mcg/h, and discontinue fentanyl infusion and 6 hours -Supplement with every hour as needed fentanyl 50 mcg -Avoid oversedation due to likely obstructive sleep apnea Cardiovascular: -Long-term problematic hypertension, home meds include ARB and KEELY-I, hold for now -Maintenance hydration -Started on Catapres patch and lisinopril. -Add as needed Catapres p.o. for SBP more than 170 Respiratory: -Long-standing history of wheezing and bronchospasm without smoking -Recent hospitalization for asthma and presently on long-term high-dose steroid taper, prednisone 30 mg daily. -On hydrocortisone 50 mg every 6 hours intravenous and albuterol nebs. Reduce hydrocortisone to 50 every 12 hours -Bronchodilators, inhaled. -Keep head of bed up 30-40 Gastrointestinal/ID: -Strict n.p.o. except meds, nasogastric tube decompression -General surgery service following -Antibiotic coverage for gram-negative organisms and anaerobic bacteria -Continue Zosyn and s/p 1 dose of vancomycin. Blood cultures 2 negative to date -WBC count decreased to 15 Kristie. Continue to monitor closely Renal: -Taylor will be required for hourly urine output during resuscitation -Prerenal azotemia resolved, follow closely Hematology: -Serial CBC Prophylaxis: -SCDs, Pepcid IV -Chemical DVT prophylaxis Overall impression: Level 2 Consult [facility] to assume care in a.m. 06/27/2018. Transfer to [facility] with telemetry Discussed Condition With: Dr. Agee (3) Diverticulitis of colon with perforation Qualifiers: Diverticulitis bleeding: unspecified bleeding status Qualified Code(s): K57.20 - Diverticulitis of large intestine with perforation and abscess without bleeding
--- NOTE | 2018-06-26 15:35 | P.PNWCN ---
Wound Care Nurse Consult Description: Consult for New Ostomy Teaching per CECY Khan Communicated with: Patient Recommendation: Monitor stoma for red/pink moist color and output. Empty pouch when 1/3-1/2 full of effluent. Change wafer and pouch using 2 1/4" moldable appliance Q5D and PRN for leaks. Additional information: Patient seen on for ostomy assessment, teaching, and delivery of educational material. Bowel Diversion Stoma - Bowel Stoma Left Lower Abdomen Stoma Edema: Yes Stoma Appearance: Oval (measuring 1 1/4" tall and 1 1/2" wide), Protruding ( minimal protrusion <1cm) Loop Supporting Stefan: No Collection Device: Two-piece, Cut to Fit Wafer Wafer Size: 2 1/4 Cut to Fit 57mm
--- NOTE | 2018-06-26 20:14 | P.PNPL ---
Subjective Interval history: 57 YOWF with Br asthma, s/p perforatedsigmoid diverticulitis Breathing better Cough better On NC NGT to suction Transferred to floor Physical Exam Vital signs: Vital Signs 06/25/18 22:00 06/25/18 23:37 06/26/18 00:00 Temperature 98.8 F Pulse Rate 97 H 94 H 91 H Respiratory Rate 16 10 L Blood Pressure 142/77 H Pulse Oximetry 96 06/26/18 02:00 06/26/18 03:33 06/26/18 04:00 Temperature 98.7 F Pulse Rate 94 H 83 88 Respiratory Rate 16 16 Blood Pressure 163/83 H Pulse Oximetry 96 06/26/18 06:00 06/26/18 07:48 06/26/18 08:00 Temperature 97.9 F Pulse Rate 75 65 64 Respiratory Rate 20 12 Blood Pressure 179/89 H Pulse Oximetry 98 97 06/26/18 08:40 06/26/18 10:00 06/26/18 11:41 Temperature Pulse Rate 96 H 80 Respiratory Rate 12 20 Blood Pressure Pulse Oximetry 06/26/18 12:00 06/26/18 14:00 06/26/18 14:23 Temperature 98.5 F Pulse Rate 71 84 Respiratory Rate 9 L 11 L Blood Pressure 164/80 H Pulse Oximetry 97 06/26/18 15:39 06/26/18 16:00 06/26/18 18:25 Temperature 97.9 F 98.0 F Pulse Rate 75 74 83 Respiratory Rate 17 13 17 Blood Pressure 156/74 H 190/36 H Pulse Oximetry 97 94 L 06/26/18 18:34 06/26/18 20:12 Temperature Pulse Rate 83 Respiratory Rate 18 Blood Pressure Pulse Oximetry 94 L Intake & Output 06/26/18 06/26/18 06/27/18 06:59 18:59 06:59 Intake Total 200 / 200 5500 / 5500 Output Total 425 / 425 Balance -225 / -225 5500 / 5500 Weight 119 kg Intake: IV 200 / 200 5450 / 5450 Zosyn 4.5 GM Premix 4.5 gm In 200 / 200 200 / 200 100 ml @ 200 mls/hr IV.SIG Q6H [facility] Rx#:[id number] fentaNYL 10 mcg/mL Premix Drip 250 / 250 2,500 mcg In 250 ml @ 50 MCG/HR 5 mls/hr IV.SIG TITRATE PRN Rx #:[id number] Other 50 / 50 Output: Urine Amount (Catheter) 425 / 425 Indwelling Urethral Catheter 425 / 425 Stool Amount (Stoma) 0 / 0 Left Lower Abdomen 0 / 0 GENERAL: WBWn, NAD SKIN: Warm and dry. HEAD: Normocephalic. EYES: No scleral icterus. No injection or drainage. NECK: Supple, trachea midline. No JVD or lymphadenopathy. CARDIOVASCULAR: Regular rate and rhythm without murmurs, gallops, or rubs. RESPIRATORY: Breath sounds equal bilaterally. No accessory muscle use. GASTROINTESTINAL: Abdomen soft, non-tender, nondistended. MUSCULOSKELETAL: No cyanosis, or edema. BACK: Nontender without obvious deformity. No CVA tenderness. - Urinary Catheter Management Indwelling Urethral Catheter Cath placed during this visit: yes Reason for continuing: Other continuation reason Insertion time: 15:00 Assessment and Plan - Plan IMPRESSION: 1. Bronchial asthma. 2. Persistent cough. 3. Diverticulitis with perforation, status post sigmoid colectomy and colostomy. PLAN: Aerosol nebs IV Solumedrol Supplement 02 NGT to suction Wean 02
[2018-06-27] MEDS: Insulin NovoLOG Aspart Correctional Sugar Inj SQ SCH ×5 (01:08→23:33)
[2018-06-27] MEDS: Oral Hygiene Kit OROPHARYNG SCH ×5 (01:09→23:34)
[2018-06-27] MEDS ORDERED: Morphine Inj 4 MG/ML Vial IV.PUSH PRN (02:26)
[2018-06-27] MEDS: Piperacil/Tazo 4.5 GM Premix 4.5 GM/100 ML BAG IV.SIG SCH ×4 (04:54→22:29)
[2018-06-27] MEDS: Morphine Inj 4 MG/ML Vial IV.PUSH PRN ×2 (06:22→15:06)
[2018-06-27 07:12] LABS: Baso % (Auto) 0.1 % (0.0-2.0); Hematocrit 26.4 % (35.0-46.0); Hemoglobin 8.9 gm/dL (11.6-15.3); Lymph # (Auto) 0.4 th/mm3 (1.0-4.8); Mean Corpuscular HGB Conc 33.8 % (32.0-36.0); Mean Corpuscular Hemoglobin 31.3 pg (27.0-34.0); Mean Corpuscular Volume 92.7 fL (80.0-100.0); Mono # (Auto) 0.6 th/mm3 (0.0-0.9); Mono % (Auto) 4.8 % (0.0-8.0); Neut # (Auto) 10.4 th/mm3 (1.8-7.7); Neut % (Auto) 91.1 % (16.0-70.0); Platelet Count 165 th/mm3 (150-450); Red Blood Count 2.85 mil/mm3 (4.00-5.30); Red Cell Distribution Width 15.2 % (11.6-17.2); White Blood Count 11.4 th/mm3 (4.0-11.0)
[2018-06-27 07:29] LABS: Anion Gap 7 meq/L (5-15); Blood Urea Nitrogen 28 mg/dL (7-18); Calcium 8.4 mg/dL (8.5-10.1); Carbon Dioxide 29.8 meq/L (21.0-32.0); Chloride 107 meq/L (98-107); Glomerular Filtration Rate Greater Than 89 mL/min (>89); Glucose,Random 163 mg/dL (74-106); Potassium 3.7 meq/L (3.5-5.1); Sodium 144 meq/L (136-145)
[2018-06-27 08:26] LABS: Lymphocytes 5 % (9-44); Metamyelocytes 1 % (0-1); Monocytes 6 % (0-8); Myelocytes 1 % (0-0)
[2018-06-27 08:27] LABS: Platelet Estimate Normal (Normal); Platelet Morphology Normal (Normal); Toxic Granulation 1+
[2018-06-27] MEDS: Lisinopril 20 MG Tablet PO SCH (08:28)
[2018-06-27] MEDS: Famotidine PF Inj 20 MG/2 ML Vial IV.PUSH SCH ×2 (08:28→22:29)
[2018-06-27] MEDS: Hypromellose 0.3% Opth Gel 10 GM Bottle EACH EYE SCH ×2 (08:29→22:31)
[2018-06-27] MEDS: MethylPREDNISolone Sod Succinate Inj 40 MG/ML Vial IV.PUSH SCH ×2 (08:29→22:30)
--- NOTE | 2018-06-27 11:10 | P.PNGS ---
Subjective Patient reports: still having pain (htn, no nausea, ), flatus Physical Exam Vital signs: Vital Signs 06/26/18 11:41 06/26/18 12:00 06/26/18 14:00 Temperature 98.5 F Pulse Rate 80 71 84 Respiratory Rate 20 9 L Blood Pressure 164/80 H Pulse Oximetry 97 06/26/18 14:23 06/26/18 15:39 06/26/18 16:00 Temperature 97.9 F Pulse Rate 75 74 Respiratory Rate 11 L 17 13 Blood Pressure 156/74 H Pulse Oximetry 97 06/26/18 18:25 06/26/18 18:34 06/26/18 20:00 Temperature 98.0 F 95.3 F L Pulse Rate 83 105 H Respiratory Rate 17 20 Blood Pressure 190/36 H 158/77 H Pulse Oximetry 94 L 94 L 97 06/26/18 20:12 06/26/18 23:42 06/27/18 00:00 Temperature 98.7 F Pulse Rate 83 84 65 Respiratory Rate 18 16 17 Blood Pressure 154/80 H Pulse Oximetry 94 L 06/27/18 03:26 06/27/18 04:00 06/27/18 08:00 Temperature 98.3 F 97.2 F L Pulse Rate 82 62 62 Respiratory Rate 16 18 16 Blood Pressure 181/82 H 220/104 H Pulse Oximetry 96 99 06/27/18 08:33 Temperature Pulse Rate 62 Respiratory Rate 12 Blood Pressure Pulse Oximetry 96 Intake & Output 06/26/18 06/27/18 06/27/18 18:59 06:59 18:59 Intake Total 5500 / 5500 450 / 450 Output Total 685 / 685 Balance 5500 / 5500 -235 / -235 Weight 113.7 kg Intake: IV 5450 / 5450 450 / 450 Zosyn 4.5 GM Premix 4.5 gm In 200 / 200 200 / 200 100 ml @ 200 mls/hr IV.SIG Q6H [facility] Rx#:[id number] fentaNYL 10 mcg/mL Premix Drip 250 / 250 2,500 mcg In 250 ml @ 50 MCG/HR 5 mls/hr IV.SIG TITRATE PRN Rx #:[id number] Oral 0 / 0 Other 50 / 50 Output: Urine 675 / 675 Wound Drainage # 1 Right Lateral Abdomen - Routine Respiratory Exam Present: CTA bilaterally - Routine Cardiovascular Exam Present: RRR - Routine Abdominal Exam Present: soft (jp good sxn, eleuterio serosang, air in bag) - Urinary Catheter Management Indwelling Urethral Catheter Cath placed during this visit: yes Reason for continuing: Chronic Urinary Retention Insertion time: 15:00 Assessment and Plan - Plan s/p Perf divertculitis, Septic shock, leukocytosis- possible sepsis vs steriods PLAN ng clamp trial today abx d/c mcfarland pain control eleuterio sxn keep jp remove mcfarland medicine tx for cough and htn
--- NOTE | 2018-06-27 11:31 | P.PNIM ---
Subjective Interval history: The patient said that she was coughing a lot which was causing abdominal pain. She said she has not worked with physical therapy since the day before yesterday. She has been noticing lower extremity swelling. She would like to try a different pain medication other than the patch. The IV morphine has been working. Physical Exam Vital signs: Vital Signs 06/26/18 11:41 06/26/18 12:00 06/26/18 14:00 Temperature 98.5 F Pulse Rate 80 71 84 Respiratory Rate 20 9 L Blood Pressure 164/80 H Pulse Oximetry 97 06/26/18 14:23 06/26/18 15:39 06/26/18 16:00 Temperature 97.9 F Pulse Rate 75 74 Respiratory Rate 11 L 17 13 Blood Pressure 156/74 H Pulse Oximetry 97 06/26/18 18:25 06/26/18 18:34 06/26/18 20:00 Temperature 98.0 F 95.3 F L Pulse Rate 83 105 H Respiratory Rate 17 20 Blood Pressure 190/36 H 158/77 H Pulse Oximetry 94 L 94 L 97 06/26/18 20:12 06/26/18 23:42 06/27/18 00:00 Temperature 98.7 F Pulse Rate 83 84 65 Respiratory Rate 18 16 17 Blood Pressure 154/80 H Pulse Oximetry 94 L 06/27/18 03:26 06/27/18 04:00 06/27/18 08:00 Temperature 98.3 F 97.2 F L Pulse Rate 82 62 62 Respiratory Rate 16 18 16 Blood Pressure 181/82 H 220/104 H Pulse Oximetry 96 99 06/27/18 08:33 Temperature Pulse Rate 62 Respiratory Rate 12 Blood Pressure Pulse Oximetry 96 Intake & Output 06/26/18 06/27/18 06/27/18 18:59 06:59 18:59 Intake Total 5500 / 5500 450 / 450 Output Total 685 / 685 Balance 5500 / 5500 -235 / -235 Weight 113.7 kg Intake: IV 5450 / 5450 450 / 450 Zosyn 4.5 GM Premix 4.5 gm In 200 / 200 200 / 200 100 ml @ 200 mls/hr IV.SIG Q6H [facility] Rx#:[id number] fentaNYL 10 mcg/mL Premix Drip 250 / 250 2,500 mcg In 250 ml @ 50 MCG/HR 5 mls/hr IV.SIG TITRATE PRN Rx #:[id number] Oral 0 / 0 Other 50 / 50 Output: Urine 675 / 675 Wound Drainage # 1 Right Lateral Abdomen Narrative: General: Lying in bed in no acute distress Head: Atraumatic, normocephalic Neck: Supple, no JVD Lungs: Light wheezes, good bilateral air movement Heart: Normal S1-S2, regular rate and rhythm, no JVD. Abdomen: NGT in place. Mildly distended, no guarding. Stoma pink. Bowel sounds quiet. Extremities: Well-perfused. TR edema Neuro: Alert awake oriented. Appears in good spirits. Moves all extremities no focal deficits - Urinary Catheter Management Indwelling Urethral Catheter Cath placed during this visit: yes Reason for continuing: Chronic Urinary Retention Insertion time: 15:00 Results - Labs CBC & Chem 7: 06/27/18 06:33 06/27/18 06:33 Laboratory Results - last 24 hr 06/26/18 06/26/18 06/26/18 11:41 17:02 22:29 WBC RBC Hgb Hct MCV MCH MCHC RDW Plt Count MPV Prelim Diff (Auto) Neut % (Auto) Lymph % (Auto) [place] % (Auto) Eos % (Auto) Baso % (Auto) Neut # (Auto) Lymph # (Auto) [place] # (Auto) Eos # (Auto) Baso # (Auto) WBC Differential Seg Neuts % (Manual) Band Neuts % (Manual) Lymphocytes % (Manual) Monocytes % (Manual) Metamyelocytes % (Man) Myelocytes % (Man) Abs Neuts (Manual) Differential Comment Toxic Granulation Platelet Estimate Platelet Morphology Sodium Potassium Chloride Carbon Dioxide Anion Gap BUN Creatinine Estimated GFR POC Glucose 150 H 153 H 145 H Random Glucose Calcium 06/27/18 06/27/18 06/27/18 05:14 06:33 06:33 WBC 11.4 H RBC 2.85 L Hgb 8.9 L Hct 26.4 L MCV 92.7 MCH 31.3 MCHC 33.8 RDW 15.2 Plt Count 165 MPV 8.0 Prelim Diff (Auto) Slide review pending Neut % (Auto) 91.1 H Lymph % (Auto) 4.0 L [place] % (Auto) 4.8 Eos % (Auto) 0.0 Baso % (Auto) 0.1 Neut # (Auto) 10.4 H Lymph # (Auto) 0.4 L [place] # (Auto) 0.6 Eos # (Auto) 0.0 Baso # (Auto) 0.0 WBC Differential Manual diff final Seg Neuts % (Manual) 74 H Band Neuts % (Manual) 13 H Lymphocytes % (Manual) 5 L Monocytes % (Manual) 6 Metamyelocytes % (Man) 1 Myelocytes % (Man) 1 H Abs Neuts (Manual) 10.1 H Differential Comment . Toxic Granulation 1+ H Platelet Estimate Normal Platelet Morphology Normal Sodium 144 Potassium 3.7 Chloride 107 Carbon Dioxide 29.8 Anion Gap 7 BUN 28 H Creatinine 0.64 Estimated GFR Greater than 89 POC Glucose 146 H Random Glucose 163 H Calcium 8.4 L Microbiology 06/25/18 15:07 Blood - Peripheral Aerobic Blood Culture - Preliminary No growth in 2 days 06/25/18 15:07 Blood - Peripheral Anaerobic Blood Culture - Preliminary No growth in 2 days 06/25/18 15:15 Blood - Peripheral Aerobic Blood Culture - Preliminary No growth in 2 days 06/25/18 15:15 Blood - Peripheral Anaerobic Blood Culture - Preliminary No growth in 2 days Assessment and Plan - Plan Perforated diverticulitis/ Sepsis General surgery consult appreciated. -NGT clamped. -wound care and diet per general surgery. -Antibiotic coverage for gram-negative organisms and anaerobic bacteria. Continue Zosyn. -pain control. Switch to PO Percocet with IV morphine for breakthrough. Respiratory insufficiency/ Asthma Long-standing history of wheezing and bronchospasm without smoking. Recent hospitalization for asthma and presently on long-term high-dose steroid taper. Pulmonology consult appreciated. -IV Solumedrol BID. -Bronchodilators, inhaled. -Keep head of bed up 30-40. -incentive spirometry. -Viviane Torres. -PT eval. HTN Poorly controlled. Exacerbated by pain, steroids and IVFs. -continue lisinopril and clonidine patch. -add amlodipine 5 mg daily. -Vasotec as needed. -pain control. PPx: Per surgery
[2018-06-27] MEDS: amLODIPine 5 MG Tablet PO SCH (15:05)
[2018-06-27] MEDS: Benzonatate 100 MG Capsule PO PRN (15:06)
--- NOTE | 2018-06-27 17:37 | P.PNWCN ---
Wound Care Nurse Consult Description: Consult for New Ostomy Teaching per CECY Khan Recommendation: Monitor stoma for red/pink moist color and output. Empty pouch when 1/3-1/2 full of effluent. Change wafer and pouch using 2 1/4" moldable appliance Q5D and PRN for leaks. Bowel Diversion Stoma - Bowel Stoma Left Lower Abdomen Stoma Edema: Yes Stoma Appearance: Beefy Red Loop Supporting Stefan: No Collection Device: Two-piece Drainage Description: Liquid, Brown Wafer Size: 2 1/4 Cut to Fit 57mm Daphne-Stomal Skin Appearance: Intact Daphne-Stomal Surrounding Tissue Sensation Description: No Symptoms - Additional Information Additional Information: Patient seen today for follow up teaching of new colostomy to [facility]. Patient was seen by Hanh SANCHEZ yesterday for initial teaching. Patient is is bed getting breathing treatment. Stoma was assessed through transparent pouch . Stoma appears oval , red, and protruding. Two piece appliance in placed is dry and intact. Patient has no questions today and is busy with breathing treatment at this time. Will follow up with patient tomorrow for continued teaching.
[2018-06-27] MEDS: oxyCODONE/Acetaminophen 10/325 Tablet PO PRN ×2 (18:35→22:39)
--- NOTE | 2018-06-27 18:53 | P.PNPL ---
Subjective Interval history: 57 YOWF with Br asthma, s/p perforatedsigmoid diverticulitis Breathing better Cough better On NC NGT clamped Physical Exam Vital signs: Vital Signs 06/26/18 20:00 06/26/18 20:12 06/26/18 23:42 Temperature 95.3 F L Pulse Rate 105 H 83 84 Respiratory Rate 20 18 16 Blood Pressure 158/77 H Pulse Oximetry 97 06/27/18 00:00 06/27/18 03:26 06/27/18 04:00 Temperature 98.7 F 98.3 F Pulse Rate 65 82 62 Respiratory Rate 17 16 18 Blood Pressure 154/80 H 181/82 H Pulse Oximetry 94 L 96 06/27/18 08:00 06/27/18 08:33 06/27/18 11:46 Temperature 97.2 F L Pulse Rate 62 62 52 L Respiratory Rate 16 12 12 Blood Pressure 220/104 H Pulse Oximetry 99 96 06/27/18 12:00 06/27/18 15:55 06/27/18 16:00 Temperature 97.8 F 97.8 F Pulse Rate 56 L 53 L 52 L Respiratory Rate 19 13 17 Blood Pressure 204/98 H 171/90 H Pulse Oximetry 98 99 Intake & Output 06/26/18 06/27/18 06/27/18 18:59 06:59 18:59 Intake Total 5500 / 5500 450 / 450 2975 / 2975 Output Total 685 / 685 1025 / 1025 Balance 5500 / 5500 -235 / -235 1950 / 1950 Weight 113.7 kg Intake: IV 5450 / 5450 450 / 450 1300 / 1300 LR 1000 mL Inj 1,000 ML @ 50 1000 / 1000 mls/hr IV.CONT .Q20H [facility] Rx#: [id number] Ofirmev Inj 1,000 mg In 100 ml 100 / 100 @ 400 mls/hr IV.SIG Q6H [facility] Rx# :[id number] Zosyn 4.5 GM Premix 4.5 gm In 200 / 200 200 / 200 200 / 200 100 ml @ 200 mls/hr IV.SIG Q6H [facility] Rx#:[id number] fentaNYL 10 mcg/mL Premix Drip 250 / 250 2,500 mcg In 250 ml @ 50 MCG/HR 5 mls/hr IV.SIG TITRATE PRN Rx #:[id number] Oral 0 / 0 75 / 75 Other 50 / 50 1600 / 1600 Output: Urine 675 / 675 1025 / 1025 Stool 0 / 0 Wound Drainage # 1 Right Lateral Abdomen Other: # Voids 4 GENERAL: WBWn WF,NAD SKIN: Warm and dry. HEAD: Normocephalic. EYES: No scleral icterus. No injection or drainage. NECK: Supple, trachea midline. No JVD or lymphadenopathy. CARDIOVASCULAR: Regular rate and rhythm without murmurs, gallops, or rubs. RESPIRATORY: Breath sounds equal bilaterally. No accessory muscle use. GASTROINTESTINAL: Abdomen soft, non-tender, nondistended. MUSCULOSKELETAL: No cyanosis, or edema. BACK: Nontender without obvious deformity. No CVA tenderness. - Urinary Catheter Management Indwelling Urethral Catheter Cath placed during this visit: yes, but has since been removed by the nurse Reason for continuing: Decision to DC catheter Insertion time: 15:00 Removal date: 06/27/18 Removal time: 11:15 Assessment and Plan - Plan IMPRESSION: 1. Bronchial asthma. 2. Persistent cough. 3. Diverticulitis with perforation, status post sigmoid colectomy and colostomy. PLAN: Aerosol nebs IV Solumedrol Supplement 02 NGT clamped Wean 02
[2018-06-28] MEDS: Oral Hygiene Kit OROPHARYNG SCH ×3 (05:09→15:30)
[2018-06-28] MEDS: Piperacil/Tazo 4.5 GM Premix 4.5 GM/100 ML BAG IV.SIG SCH ×4 (05:09→21:32)
[2018-06-28] MEDS: oxyCODONE/Acetaminophen 10/325 Tablet PO PRN ×4 (05:12→21:29)
[2018-06-28 05:58] LABS: Baso % (Auto) 0.1 % (0.0-2.0); Hematocrit 31.7 % (35.0-46.0); Hemoglobin 10.7 gm/dL (11.6-15.3); Lymph # (Auto) 0.6 th/mm3 (1.0-4.8); Lymph % (Auto) 4.4 % (9.0-44.0); Mean Corpuscular HGB Conc 33.8 % (32.0-36.0); Mean Corpuscular Hemoglobin 30.8 pg (27.0-34.0); Mean Corpuscular Volume 91.1 fL (80.0-100.0); Mean Platelet Volume 7.8 fL (7.0-11.0); Mono # (Auto) 0.6 th/mm3 (0.0-0.9); Mono % (Auto) 4.6 % (0.0-8.0); Neut % (Auto) 90.9 % (16.0-70.0); Platelet Count 199 th/mm3 (150-450); Red Blood Count 3.48 mil/mm3 (4.00-5.30); Red Cell Distribution Width 14.7 % (11.6-17.2); White Blood Count 13.2 th/mm3 (4.0-11.0)
[2018-06-28] MEDS: Insulin NovoLOG Aspart Correctional Sugar Inj SQ SCH ×3 (06:03→16:59)
[2018-06-28 06:29] LABS: Alanine Aminotransferase 37 U/L (10-53); Albumin 2.2 g/dL (3.4-5.0); Alkaline Phosphatase 68 U/L (45-117); Anion Gap 9 meq/L (5-15); Aspartate Aminotransferase 23 U/L (15-37); Blood Urea Nitrogen 16 mg/dL (7-18); Calcium 8.5 mg/dL (8.5-10.1); Carbon Dioxide 32.2 meq/L (21.0-32.0); Chloride 98 meq/L (98-107); Glomerular Filtration Rate Greater Than 89 mL/min (>89); Glucose,Random 132 mg/dL (74-106); Magnesium 2.3 mg/dL (1.5-2.5); Potassium 3.5 meq/L (3.5-5.1); Sodium 139 meq/L (136-145); Total Protein 6.7 g/dL (6.4-8.2)
--- NOTE | 2018-06-28 07:32 | P.PNWCN ---
Wound Care Nurse Consult Description: Consult for New Ostomy Teaching per CECY Khan Communicated with: Patient Recommendation: Monitor stoma for red/pink moist color and output. Empty pouch when 1/3-1/2 full of effluent. Change wafer and pouch using lowell seal and 1 3/4"" moldable appliance Q5D and PRN for leaks. Additional information: Patient seen this morning on for ostomy assessment, appliance change, and teaching. Bowel Diversion Stoma - Bowel Stoma Left Lower Abdomen Stoma Edema: Yes (mild) Stoma Appearance: Oval, Protruding Loop Supporting Stefan: No Collection Device: Two-piece, Moldable Wafer Drainage Description: Soft, Formed, Liquid, Brown Wafer Size: 2 1/4 Moldable Stoma Care: Pouch and Wafer Changed, Skin Care Daphne-Stomal Skin Appearance: Intact (mucocutaneous junction is noted with circumferential sutures intact) Daphne-Stomal Surrounding Tissue Sensation Description: No Symptoms - Additional Information Additional Information: Patient states upon arrival to room that the ostomy appliance needs to be checked because she can smell it. Upon assessment the wafer is noted to be completely lifted from medial side, exposing skin and stoma. The wafer and pouch were removed using adhesive remover wipes. Peristomal skin was thoroughly cleansed using soft disposable cloths and water only. Stoma was measured at this time. 1" tall and 1 3/4" wide. Lowell seal was obtained and warmed by scenario writer. 2 1/4" wafer was available at bedside.Lowell seal was stretched and placed around stoma. Wafer was warmed by scenario writer, low pressure adaptor was applied to flange, and then wafer was molded to fit stoma width. Wafer was placed over and around stoma. Pouch was closed at the bottom and then placed on low pressure adaptor. Patient held her hand over the appliance for ~1min before reaching for ice chips. Patient was assisted/repositioned to her right side.
[2018-06-28 08:15] LABS: Lymphocytes 3 % (9-44); Metamyelocytes 1 % (0-1); Monocytes 2 % (0-8); Myelocytes 1 % (0-0); Platelet Estimate Normal (Normal); Platelet Morphology Normal (Normal)
[2018-06-28] MEDS: Hypromellose 0.3% Opth Gel 10 GM Bottle EACH EYE SCH ×2 (09:04→21:33)
[2018-06-28] MEDS: Lisinopril 20 MG Tablet PO SCH (09:05)
[2018-06-28] MEDS: amLODIPine 5 MG Tablet PO SCH (09:05)
[2018-06-28] MEDS: Famotidine PF Inj 20 MG/2 ML Vial IV.PUSH SCH ×2 (09:06→21:27)
[2018-06-28] MEDS: MethylPREDNISolone Sod Succinate Inj 40 MG/ML Vial IV.PUSH SCH (09:07)
--- NOTE | 2018-06-28 13:47 | P.PNGS ---
Subjective Patient reports: feels better, pain is less, flatus Physical Exam Vital signs: Vital Signs 06/27/18 15:55 06/27/18 16:00 06/27/18 20:00 Temperature 97.8 F 97.5 F L Pulse Rate 53 L 52 L 70 Respiratory Rate 13 17 18 Blood Pressure 171/90 H 156/78 H Pulse Oximetry 99 99 06/27/18 20:10 06/28/18 00:00 06/28/18 01:32 Temperature 98.8 F Pulse Rate 76 84 80 Respiratory Rate 17 18 20 Blood Pressure 169/72 H Pulse Oximetry 99 98 06/28/18 04:00 06/28/18 06:34 06/28/18 08:00 Temperature 98.3 F 97.9 F Pulse Rate 82 86 96 H Respiratory Rate 18 20 17 Blood Pressure 152/76 H 131/68 Pulse Oximetry 98 93 L 06/28/18 10:03 06/28/18 12:00 Temperature 98.1 F Pulse Rate 73 75 Respiratory Rate 14 18 Blood Pressure 178/83 H Pulse Oximetry 97 95 Intake & Output 06/27/18 06/28/18 06/28/18 18:59 06:59 18:59 Intake Total 2975 / 2975 400 / 400 200 / 200 Output Total 1025 / 1025 600 / 600 1240 / 1240 Balance 1950 / 1950 -200 / -200 -1040 / -1040 Weight 105.7 kg Intake: IV 1300 / 1300 400 / 400 200 / 200 LR 1000 mL Inj 1,000 ML @ 50 1000 / 1000 mls/hr IV.CONT .Q20H [facility] Rx#: [id number] Ofirmev Inj 1,000 mg In 100 ml 100 / 100 200 / 200 100 / 100 @ 400 mls/hr IV.SIG Q6H [facility] Rx# :[id number] Zosyn 4.5 GM Premix 4.5 gm In 200 / 200 200 / 200 100 / 100 100 ml @ 200 mls/hr IV.SIG Q6H [facility] Rx#:[id number] Oral 75 / 75 Other 1600 / 1600 Output: Urine 1025 / 1025 600 / 600 1200 / 1200 Stool 0 / 0 Wound Drainage 40 / 40 # 1 Right Lateral Abdomen 40 / 40 Other: # Voids 4 - Routine Abdominal Exam Present: soft (incisional tenderness, jp good sxn, eleuterio serosang, ostomy pink) - Urinary Catheter Management Indwelling Urethral Catheter Cath placed during this visit: yes, but has since been removed by the nurse Reason for continuing: Not indwelling catheter Insertion time: 15:00 Removal date: 06/27/18 Removal time: 11:15 Assessment and Plan - Plan s/p Perf divertculitis, Septic shock, leukocytosis- possible sepsis vs steriods PLAN d/c ng today start clear liquid abx pain control eleuterio sxn keep jp medicine tx for cough and htn ambulate
--- NOTE | 2018-06-28 14:42 | P.PNPL ---
Subjective Interval history: 57 YOWF with Br asthma, s/p perforatedsigmoid diverticulitis Breathing better Cough better On NC NGT removed Tolerates clears Physical Exam Vital signs: Vital Signs 06/27/18 15:55 06/27/18 16:00 06/27/18 20:00 Temperature 97.8 F 97.5 F L Pulse Rate 53 L 52 L 70 Respiratory Rate 13 17 18 Blood Pressure 171/90 H 156/78 H Pulse Oximetry 99 99 06/27/18 20:10 06/28/18 00:00 06/28/18 01:32 Temperature 98.8 F Pulse Rate 76 84 80 Respiratory Rate 17 18 20 Blood Pressure 169/72 H Pulse Oximetry 99 98 06/28/18 04:00 06/28/18 06:34 06/28/18 08:00 Temperature 98.3 F 97.9 F Pulse Rate 82 86 96 H Respiratory Rate 18 20 17 Blood Pressure 152/76 H 131/68 Pulse Oximetry 98 93 L 06/28/18 10:03 06/28/18 12:00 06/28/18 14:29 Temperature 98.1 F Pulse Rate 73 75 80 Respiratory Rate 14 18 12 Blood Pressure 178/83 H Pulse Oximetry 97 95 Intake & Output 06/27/18 06/28/18 06/28/18 18:59 06:59 18:59 Intake Total 2975 / 2975 400 / 400 200 / 200 Output Total 1025 / 1025 600 / 600 1240 / 1240 Balance 1950 / 1950 -200 / -200 -1040 / -1040 Weight 105.7 kg Intake: IV 1300 / 1300 400 / 400 200 / 200 LR 1000 mL Inj 1,000 ML @ 50 1000 / 1000 mls/hr IV.CONT .Q20H [facility] Rx#: [id number] Ofirmev Inj 1,000 mg In 100 ml 100 / 100 200 / 200 100 / 100 @ 400 mls/hr IV.SIG Q6H [facility] Rx# :[id number] Zosyn 4.5 GM Premix 4.5 gm In 200 / 200 200 / 200 100 / 100 100 ml @ 200 mls/hr IV.SIG Q6H [facility] Rx#:[id number] Oral 75 / 75 Other 1600 / 1600 Output: Urine 1025 / 1025 600 / 600 1200 / 1200 Stool 0 / 0 Wound Drainage 40 / 40 # 1 Right Lateral Abdomen 40 / 40 Other: # Voids 4 GENERAL: WBW N WF, NAD SKIN: Warm and dry. HEAD: Normocephalic. EYES: No scleral icterus. No injection or drainage. NECK: Supple, trachea midline. No JVD or lymphadenopathy. CARDIOVASCULAR: Regular rate and rhythm without murmurs, gallops, or rubs. RESPIRATORY: Breath sounds equal bilaterally. No accessory muscle use. GASTROINTESTINAL: Abdomen soft, non-tender, nondistended. MUSCULOSKELETAL: No cyanosis, or edema. BACK: Nontender without obvious deformity. No CVA tenderness. - Urinary Catheter Management Indwelling Urethral Catheter Cath placed during this visit: yes, but has since been removed by the nurse Reason for continuing: Not indwelling catheter Insertion time: 15:00 Removal date: 06/27/18 Removal time: 11:15 Assessment and Plan - Plan IMPRESSION: 1. Bronchial asthma. 2. Persistent cough. 3. Diverticulitis with perforation, status post sigmoid colectomy and colostomy. PLAN: Aerosol nebs IV Solumedrol Supplement 02 NGT removed Wean 02 Stable from Pulm standpoint.
[2018-06-28] MEDS ORDERED: amLODIPine 5 MG Tablet PO ONE (15:00)
--- NOTE | 2018-06-28 15:00 | P.PNIM ---
Subjective Interval history: The patient's family was at the bedside. The patient said that her breathing was better. She said that her blood pressure was really high when she went to get up out of bed. She says she talked with the outsole caser earlier. Discussed with nursing. Physical Exam Vital signs: Vital Signs 06/27/18 15:55 06/27/18 16:00 06/27/18 20:00 Temperature 97.8 F 97.5 F L Pulse Rate 53 L 52 L 70 Respiratory Rate 13 17 18 Blood Pressure 171/90 H 156/78 H Pulse Oximetry 99 99 06/27/18 20:10 06/28/18 00:00 06/28/18 01:32 Temperature 98.8 F Pulse Rate 76 84 80 Respiratory Rate 17 18 20 Blood Pressure 169/72 H Pulse Oximetry 99 98 06/28/18 04:00 06/28/18 06:34 06/28/18 08:00 Temperature 98.3 F 97.9 F Pulse Rate 82 86 96 H Respiratory Rate 18 20 17 Blood Pressure 152/76 H 131/68 Pulse Oximetry 98 93 L 06/28/18 10:03 06/28/18 12:00 06/28/18 14:29 Temperature 98.1 F Pulse Rate 73 75 80 Respiratory Rate 14 18 12 Blood Pressure 178/83 H Pulse Oximetry 97 95 Intake & Output 06/27/18 06/28/18 06/28/18 18:59 06:59 18:59 Intake Total 2975 / 2975 400 / 400 200 / 200 Output Total 1025 / 1025 600 / 600 1240 / 1240 Balance 1950 / 1950 -200 / -200 -1040 / -1040 Weight 105.7 kg Intake: IV 1300 / 1300 400 / 400 200 / 200 LR 1000 mL Inj 1,000 ML @ 50 1000 / 1000 mls/hr IV.CONT .Q20H [facility] Rx#: [id number] Ofirmev Inj 1,000 mg In 100 ml 100 / 100 200 / 200 100 / 100 @ 400 mls/hr IV.SIG Q6H [facility] Rx# :[id number] Zosyn 4.5 GM Premix 4.5 gm In 200 / 200 200 / 200 100 / 100 100 ml @ 200 mls/hr IV.SIG Q6H [facility] Rx#:[id number] Oral 75 / 75 Other 1600 / 1600 Output: Urine 1025 / 1025 600 / 600 1200 / 1200 Stool 0 / 0 Wound Drainage 40 / 40 # 1 Right Lateral Abdomen 40 / 40 Other: # Voids 4 Narrative: General: Lying in bed in no acute distress. Head: Atraumatic, normocephalic. Neck: Supple, no JVD. Lungs: CTAB. Heart: Normal S1-S2, regular rate and rhythm, no JVD. Abdomen: NGT in place. Mildly distended, no guarding. Stoma pink. Bowel sounds quiet. Extremities: Well-perfused. TR edema Neuro: Alert awake oriented. Appears in good spirits. Moves all extremities, no focal deficits. - Urinary Catheter Management Indwelling Urethral Catheter Cath placed during this visit: yes, but has since been removed by the nurse Reason for continuing: Not indwelling catheter Insertion time: 15:00 Removal date: 06/27/18 Removal time: 11:15 Results - Labs CBC & Chem 7: 06/28/18 05:40 06/28/18 05:40 Laboratory Results - last 24 hr 06/27/18 06/27/18 06/28/18 16:18 22:32 05:12 WBC RBC Hgb Hct MCV MCH MCHC RDW Plt Count MPV Prelim Diff (Auto) Neut % (Auto) Lymph % (Auto) [place] % (Auto) Eos % (Auto) Baso % (Auto) Neut # (Auto) Lymph # (Auto) [place] # (Auto) Eos # (Auto) Baso # (Auto) WBC Differential Seg Neuts % (Manual) Band Neuts % (Manual) Lymphocytes % (Manual) Monocytes % (Manual) Metamyelocytes % (Man) Myelocytes % (Man) Abs Neuts (Manual) Differential Comment Platelet Estimate Platelet Morphology Sodium Potassium Chloride Carbon Dioxide Anion Gap BUN Creatinine Estimated GFR POC Glucose 158 H 147 H 154 H Random Glucose Calcium Magnesium Total Bilirubin Direct Bilirubin Indirect Bilirubin AST ALT Alkaline Phosphatase Total Protein Albumin 06/28/18 06/28/18 06/28/18 05:40 05:40 07:17 WBC 13.2 H RBC 3.48 L Hgb 10.7 L Hct 31.7 L MCV 91.1 MCH 30.8 MCHC 33.8 RDW 14.7 Plt Count 199 MPV 7.8 Prelim Diff (Auto) Slide review pending Neut % (Auto) 90.9 H Lymph % (Auto) 4.4 L [place] % (Auto) 4.6 Eos % (Auto) 0.0 Baso % (Auto) 0.1 Neut # (Auto) 12.0 H Lymph # (Auto) 0.6 L [place] # (Auto) 0.6 Eos # (Auto) 0.0 Baso # (Auto) 0.0 WBC Differential Manual diff final Seg Neuts % (Manual) 85 H Band Neuts % (Manual) 8 H Lymphocytes % (Manual) 3 L Monocytes % (Manual) 2 Metamyelocytes % (Man) 1 Myelocytes % (Man) 1 H Abs Neuts (Manual) 12.5 H Differential Comment . Platelet Estimate Normal Platelet Morphology Normal Sodium 139 Potassium 3.5 Chloride 98 D Carbon Dioxide 32.2 H Anion Gap 9 BUN 16 Creatinine 0.62 Estimated GFR Greater than 89 POC Glucose 142 H Random Glucose 132 H Calcium 8.5 Magnesium 2.3 Total Bilirubin 0.5 Direct Bilirubin 0.2 Indirect Bilirubin 0.3 AST 23 ALT 37 Alkaline Phosphatase 68 Total Protein 6.7 D Albumin 2.2 L 06/28/18 11:29 WBC RBC Hgb Hct MCV MCH MCHC RDW Plt Count MPV Prelim Diff (Auto) Neut % (Auto) Lymph % (Auto) [place] % (Auto) Eos % (Auto) Baso % (Auto) Neut # (Auto) Lymph # (Auto) [place] # (Auto) Eos # (Auto) Baso # (Auto) WBC Differential Seg Neuts % (Manual) Band Neuts % (Manual) Lymphocytes % (Manual) Monocytes % (Manual) Metamyelocytes % (Man) Myelocytes % (Man) Abs Neuts (Manual) Differential Comment Platelet Estimate Platelet Morphology Sodium Potassium Chloride Carbon Dioxide Anion Gap BUN Creatinine Estimated GFR POC Glucose 123 H Random Glucose Calcium Magnesium Total Bilirubin Direct Bilirubin Indirect Bilirubin AST ALT Alkaline Phosphatase Total Protein Albumin Microbiology 06/25/18 15:07 Blood - Peripheral Aerobic Blood Culture - Preliminary No growth in 3 days 06/25/18 15:07 Blood - Peripheral Anaerobic Blood Culture - Preliminary No growth in 3 days 06/25/18 15:15 Blood - Peripheral Aerobic Blood Culture - Preliminary No growth in 3 days 06/25/18 15:15 Blood - Peripheral Anaerobic Blood Culture - Preliminary No growth in 3 days Assessment and Plan - Plan Perforated diverticulitis/ Sepsis General surgery consult appreciated. -NGT removed. On clears. -wound care per general surgery. -Antibiotic coverage for gram-negative organisms and anaerobic bacteria. Continue Zosyn. -pain control with PO Percocet with IV morphine for breakthrough. Respiratory insufficiency/ Asthma Long-standing history of wheezing and bronchospasm without smoking. Recent hospitalization for asthma and presently on long-term high-dose steroid taper. Pulmonology consult appreciated. -change IV Solumedrol to prednisone BID. -Bronchodilators, inhaled. -Keep head of bed up 30-40. -incentive spirometry. -Tessalon Perles as needed. -PT eval. [facility] recommended. HTN Poorly controlled. Exacerbated by pain, steroids and IVFs. -continue lisinopril and clonidine patch. -increase amlodipine to 10 mg daily. -Vasotec as needed. -pain control. Anemia Exacerbated by surgery. Stable. -follow CBC as needed. PPx: Per surgery
--- NOTE | 2018-06-28 15:38 | P.PNWCN ---
Wound Care Nurse Consult Description: Consult for New Ostomy Teaching per CECY Khan Communicated with: Patient SHANTELLE Singh Recommendation: Monitor stoma for red/pink moist color and output. Empty pouch when 1/3-1/2 full of effluent. Change wafer and pouch using taurus seal and 2 1/4"" moldable appliance Q5D and PRN for leaks. Additional information: Starter kit ordered. Supplies ordered for patient to go home with and communicated to SHANTELLE Singh. Bowel Diversion Stoma - Additional Information Additional Information: Checked up on appliance that was changed earlier this morning. Tape is coming off near midline and communicated to patient. A cut to fit appliance was left in patients room in her educational material box that may be used if current appliance does not end up staying in place. Patient is aware that several different appliances may be trialed before finding one that works for her.
[2018-06-28] MEDS: predniSONE 20 MG Tablet PO SCH (21:27)
[2018-06-28] MEDS: Enoxaparin Inj 40 MG/0.4 ML Syringe SQ SCH (21:27)
[2018-06-29] MEDS: Piperacil/Tazo 4.5 GM Premix 4.5 GM/100 ML BAG IV.SIG SCH ×4 (03:05→23:18)
[2018-06-29] MEDS: Oral Hygiene Kit OROPHARYNG SCH ×5 (03:05→23:28)
[2018-06-29] MEDS: Insulin NovoLOG Aspart Correctional Sugar Inj SQ SCH ×5 (03:05→23:28)
[2018-06-29] MEDS: oxyCODONE/Acetaminophen 10/325 Tablet PO PRN ×5 (03:08→20:36)
[2018-06-29] MEDS: amLODIPine 5 MG Tablet PO SCH (08:26)
[2018-06-29] MEDS: Lisinopril 20 MG Tablet PO SCH (08:26)
[2018-06-29] MEDS: Enoxaparin Inj 40 MG/0.4 ML Syringe SQ SCH ×2 (08:27→20:28)
[2018-06-29] MEDS: Famotidine PF Inj 20 MG/2 ML Vial IV.PUSH SCH ×2 (08:28→20:29)
[2018-06-29] MEDS: Hypromellose 0.3% Opth Gel 10 GM Bottle EACH EYE SCH ×2 (08:31→20:28)
[2018-06-29] MEDS: predniSONE 20 MG Tablet PO SCH ×2 (08:33→20:29)
--- NOTE | 2018-06-29 10:35 | P.PNGS ---
Subjective Patient reports: feels better, pain is less, tolerating liquids well, flatus ( reports air in ostomy, tolerating some po, pain controlled) Physical Exam Vital signs: Vital Signs 06/28/18 12:00 06/28/18 14:29 06/28/18 16:00 Temperature 98.1 F 98.0 F Pulse Rate 75 80 80 Respiratory Rate 18 12 18 Blood Pressure 178/83 H 161/81 H Pulse Oximetry 95 94 L 06/28/18 20:00 06/28/18 20:31 06/29/18 00:00 Temperature 97.8 F 97.9 F Pulse Rate 87 76 90 Respiratory Rate 18 16 18 Blood Pressure 148/81 H 156/85 H Pulse Oximetry 94 L 94 L 93 L 06/29/18 04:00 06/29/18 04:12 06/29/18 07:00 Temperature 97.7 F Pulse Rate 90 86 80 Respiratory Rate 18 16 16 Blood Pressure 171/92 H Pulse Oximetry 95 06/29/18 07:51 06/29/18 08:00 Temperature 98.1 F Pulse Rate 93 H Respiratory Rate 17 Blood Pressure 127/65 Pulse Oximetry 97 94 L Intake & Output 06/28/18 06/29/18 06/29/18 18:59 06:59 18:59 Intake Total 1800 / 1800 680 / 680 100 / 100 Output Total 4990 / 4990 2310 / 2310 Balance -3190 / -3190 -1630 / -1630 100 / 100 Weight 101.2 kg Intake: IV 300 / 300 200 / 200 100 / 100 Ofirmev Inj 1,000 mg In 100 ml 100 / 100 @ 400 mls/hr IV.SIG Q6H [facility] Rx# :[id number] Zosyn 4.5 GM Premix 4.5 gm In 200 / 200 200 / 200 100 / 100 100 ml @ 200 mls/hr IV.SIG Q6H [facility] Rx#:[id number] Oral 1500 / 1500 480 / 480 Output: Urine 4950 / 4950 2300 / 2300 Wound Drainage 40 / 40 10 / 10 # 1 Right Lateral Abdomen 40 / 40 10 / 10 Other: # Bowel Movements 0 - Routine Abdominal Exam Present: soft, normoactive bowel sounds, wound Comments: ostomy viable, NAT RLQ, JOSH intact, ecchymosis from lovenox - Urinary Catheter Management Indwelling Urethral Catheter Cath placed during this visit: yes, but has since been removed by the nurse Reason for continuing: Not indwelling catheter Insertion time: 15:00 Removal date: 06/27/18 Removal time: 11:15 Assessment and Plan - Assessment (1) Diverticulitis of colon with perforation Code(s): K57.20 - Diverticulitis of large intestine with perforation and abscess without bleeding Status: Acute - Plan continue liquids for now, awaiting stool in ostomy (1) Diverticulitis of colon with perforation Qualifiers: Diverticulitis bleeding: unspecified bleeding status Qualified Code(s): K57.20 - Diverticulitis of large intestine with perforation and abscess without bleeding
--- NOTE | 2018-06-29 10:56 | P.PNIM ---
Subjective Interval history: The patient said that her breathing was better. She said that she spoke with surgery this morning. She was told to ambulate a little more. She says her pain is controlled with the medication. No acute concerns. Physical Exam Vital signs: Vital Signs 06/28/18 12:00 06/28/18 14:29 06/28/18 16:00 Temperature 98.1 F 98.0 F Pulse Rate 75 80 80 Respiratory Rate 18 12 18 Blood Pressure 178/83 H 161/81 H Pulse Oximetry 95 94 L 06/28/18 20:00 06/28/18 20:31 06/29/18 00:00 Temperature 97.8 F 97.9 F Pulse Rate 87 76 90 Respiratory Rate 18 16 18 Blood Pressure 148/81 H 156/85 H Pulse Oximetry 94 L 94 L 93 L 06/29/18 04:00 06/29/18 04:12 06/29/18 07:00 Temperature 97.7 F Pulse Rate 90 86 80 Respiratory Rate 18 16 16 Blood Pressure 171/92 H Pulse Oximetry 95 06/29/18 07:51 06/29/18 08:00 Temperature 98.1 F Pulse Rate 93 H Respiratory Rate 17 Blood Pressure 127/65 Pulse Oximetry 97 94 L Intake & Output 06/28/18 06/29/18 06/29/18 18:59 06:59 18:59 Intake Total 1800 / 1800 680 / 680 100 / 100 Output Total 4990 / 4990 2310 / 2310 Balance -3190 / -3190 -1630 / -1630 100 / 100 Weight 101.2 kg Intake: IV 300 / 300 200 / 200 100 / 100 Ofirmev Inj 1,000 mg In 100 ml 100 / 100 @ 400 mls/hr IV.SIG Q6H [facility] Rx# :[id number] Zosyn 4.5 GM Premix 4.5 gm In 200 / 200 200 / 200 100 / 100 100 ml @ 200 mls/hr IV.SIG Q6H [facility] Rx#:[id number] Oral 1500 / 1500 480 / 480 Output: Urine 4950 / 4950 2300 / 2300 Wound Drainage 40 / 40 10 / 10 # 1 Right Lateral Abdomen 40 / 40 10 / 10 Other: # Bowel Movements 0 Narrative: General: Lying in bed in no acute distress. Head: Atraumatic, normocephalic. Neck: Supple, no JVD. Lungs: CTAB. Heart: Normal S1-S2, regular rate and rhythm, no JVD. Abdomen: NGT in place. Mildly distended, no guarding. Stoma pink. Bowel sounds quiet. Extremities: Well-perfused. TR edema Neuro: Alert awake oriented. Appears in good spirits. Moves all extremities, no focal deficits. - Urinary Catheter Management Indwelling Urethral Catheter Cath placed during this visit: yes, but has since been removed by the nurse Reason for continuing: Not indwelling catheter Insertion time: 15:00 Removal date: 06/27/18 Removal time: 11:15 Results - Labs CBC & Chem 7: 06/28/18 05:40 06/28/18 05:40 Laboratory Results - last 24 hr 06/28/18 06/28/18 11:29 16:49 POC Glucose 123 H 114 H Microbiology 06/25/18 15:07 Blood - Peripheral Aerobic Blood Culture - Preliminary No growth in 3 days 06/25/18 15:07 Blood - Peripheral Anaerobic Blood Culture - Preliminary No growth in 3 days 06/25/18 15:15 Blood - Peripheral Aerobic Blood Culture - Preliminary No growth in 3 days 06/25/18 15:15 Blood - Peripheral Anaerobic Blood Culture - Preliminary No growth in 3 days Assessment and Plan - Plan Perforated diverticulitis/ Sepsis General surgery consult appreciated. NGT removed. -wound care and diet per general surgery. -Antibiotic coverage for gram-negative organisms and anaerobic bacteria. Continue Zosyn. -pain control with PO Percocet with IV morphine for breakthrough. Respiratory insufficiency/ Asthma Long-standing history of wheezing and bronchospasm without smoking. Recent hospitalization for asthma and presently on long-term high-dose steroid taper. Pulmonology consult appreciated. -changed IV Solumedrol to prednisone BID. -Bronchodilators, inhaled. -Keep head of bed up 30-40. -incentive spirometry. -Tessalon Perles as needed. -PT eval. [facility] recommended. -sputum culture requested. HTN Exacerbated by pain, steroids and IVFs. Improved. -continue lisinopril and clonidine patch. -increased amlodipine to 10 mg daily. -Vasotec as needed. -pain control. Anemia Exacerbated by surgery. Stable. -follow CBC as needed. PPx: Per surgery Discharge Planning: Await surgical clearance
[2018-06-30] MEDS: Piperacil/Tazo 4.5 GM Premix 4.5 GM/100 ML BAG IV.SIG SCH ×4 (03:42→23:05)
[2018-06-30] MEDS: oxyCODONE/Acetaminophen 10/325 Tablet PO PRN ×5 (03:42→23:05)
[2018-06-30] MEDS: Oral Hygiene Kit OROPHARYNG SCH ×3 (03:45→17:06)
[2018-06-30] MEDS: Insulin NovoLOG Aspart Correctional Sugar Inj SQ SCH ×3 (06:17→19:18)
[2018-06-30 08:27] LABS: Baso % (Auto) 0.1 % (0.0-2.0); Eos % (Auto) 0.2 % (0.0-4.0); Hematocrit 33.1 % (35.0-46.0); Hemoglobin 11.6 gm/dL (11.6-15.3); Lymph # (Auto) 0.9 th/mm3 (1.0-4.8); Lymph % (Auto) 8.9 % (9.0-44.0); Mean Corpuscular HGB Conc 35.2 % (32.0-36.0); Mean Corpuscular Hemoglobin 32.1 pg (27.0-34.0); Mean Corpuscular Volume 91.2 fL (80.0-100.0); Mean Platelet Volume 8.1 fL (7.0-11.0); Mono # (Auto) 0.4 th/mm3 (0.0-0.9); Mono % (Auto) 4.2 % (0.0-8.0); Neut % (Auto) 86.6 % (16.0-70.0); Platelet Count 214 th/mm3 (150-450); Red Blood Count 3.63 mil/mm3 (4.00-5.30); White Blood Count 10.4 th/mm3 (4.0-11.0)
[2018-06-30 09:08] LABS: Calcium 8.8 mg/dL (8.5-10.1); Carbon Dioxide 32.4 meq/L (21.0-32.0)
[2018-06-30] MEDS: Hypromellose 0.3% Opth Gel 10 GM Bottle EACH EYE SCH ×2 (09:12→20:45)
[2018-06-30] MEDS: amLODIPine 5 MG Tablet PO SCH (09:13)
[2018-06-30] MEDS: predniSONE 20 MG Tablet PO SCH ×2 (09:13→20:45)
[2018-06-30] MEDS: Lisinopril 20 MG Tablet PO SCH (09:13)
[2018-06-30] MEDS: Famotidine PF Inj 20 MG/2 ML Vial IV.PUSH SCH ×2 (09:14→20:45)
[2018-06-30] MEDS: Enoxaparin Inj 40 MG/0.4 ML Syringe SQ SCH ×2 (09:14→20:45)
[2018-06-30 09:16] LABS: Potassium 2.9 meq/L (3.5-5.1)
[2018-06-30] MEDS ORDERED: Potassium Chloride 25 MEQ Effervescent Tablet PO ONE (10:33)
[2018-06-30 10:44] LABS: Lymphocytes 7 % (9-44); Metamyelocytes 1 % (0-1); Monocytes 3 % (0-8); Platelet Estimate Normal (Normal); Platelet Morphology Normal (Normal); RBC Morphology Normal (Normal); Toxic Granulation 2+
--- NOTE | 2018-06-30 11:35 | P.PNIM ---
Subjective Interval history: Colostomy bag with stools, abdominal pain stable, no chest pain or shortness of breath. Afebrile. Tolerating diet. Physical Exam Vital signs: Vital Signs 06/29/18 11:54 06/29/18 12:00 06/29/18 15:57 Temperature 97.8 F Pulse Rate 103 H 110 H 95 H Respiratory Rate 16 17 18 Blood Pressure 164/73 H Pulse Oximetry 95 06/29/18 15:58 06/29/18 16:00 06/29/18 20:00 Temperature 97.4 F L 97.7 F Pulse Rate 80 99 H Respiratory Rate 17 20 Blood Pressure 136/84 137/82 Pulse Oximetry 97 94 L 97 06/29/18 20:05 06/29/18 23:22 06/30/18 00:00 Temperature 97.9 F Pulse Rate 80 104 H 97 H Respiratory Rate 16 18 20 Blood Pressure 168/95 H Pulse Oximetry 95 06/30/18 03:26 06/30/18 04:00 06/30/18 08:00 Temperature 98.1 F 97.8 F Pulse Rate 97 H 87 82 Respiratory Rate 18 20 17 Blood Pressure 144/97 H 163/88 H Pulse Oximetry 97 94 L Intake & Output 06/29/18 06/30/18 06/30/18 18:59 06:59 18:59 Intake Total 1200 / 1200 680 / 680 Output Total 1560 / 1560 1350 / 1350 Balance -360 / -360 -670 / -670 Weight 102.1 kg Intake: IV 200 / 200 200 / 200 Zosyn 4.5 GM Premix 4.5 gm In 200 / 200 200 / 200 100 ml @ 200 mls/hr IV.SIG Q6H [facility] Rx#:[id number] Oral 1000 / 1000 480 / 480 Output: Urine 1550 / 1550 1350 / 1350 Wound Drainage 10 / 10 0 / 0 # 1 Right Lateral Abdomen 10 / 10 0 / 0 Narrative: General: Lying in bed in no acute distress. Neck: Supple, no JVD. Lungs: Clear BS. Heart: Normal S1-S2, regular rate and rhythm, no JVD. Abdomen: Mildly distended, no guarding. Colostomy bag with stools. Extremities: Well-perfused. TR edema Neuro: Alert awake oriented x3. Moves all extremities, no focal deficits. - Urinary Catheter Management Indwelling Urethral Catheter Cath placed during this visit: yes, but has since been removed by the nurse Reason for continuing: Not indwelling catheter Insertion time: 15:00 Removal date: 06/27/18 Removal time: 11:15 Results - Labs CBC & Chem 7: 06/30/18 07:29 06/30/18 07:29 Laboratory Results - last 24 hr 06/29/18 06/29/18 06/30/18 16:08 23:19 06:16 WBC RBC Hgb Hct MCV MCH MCHC RDW Plt Count MPV Prelim Diff (Auto) Neut % (Auto) Lymph % (Auto) [place] % (Auto) Eos % (Auto) Baso % (Auto) Neut # (Auto) Lymph # (Auto) [place] # (Auto) Eos # (Auto) Baso # (Auto) WBC Differential Seg Neuts % (Manual) Band Neuts % (Manual) Lymphocytes % (Manual) Monocytes % (Manual) Metamyelocytes % (Man) Abs Neuts (Manual) Differential Comment Toxic Granulation Platelet Estimate Platelet Morphology RBC Morphology Sodium Potassium Chloride Carbon Dioxide Anion Gap BUN Creatinine Estimated GFR POC Glucose 160 H 179 H 172 H Random Glucose Calcium 06/30/18 06/30/18 06/30/18 07:29 07:29 08:09 WBC 10.4 RBC 3.63 L Hgb 11.6 Hct 33.1 L MCV 91.2 MCH 32.1 MCHC 35.2 RDW 15.0 Plt Count 214 MPV 8.1 Prelim Diff (Auto) Slide review pending Neut % (Auto) 86.6 H Lymph % (Auto) 8.9 L [place] % (Auto) 4.2 Eos % (Auto) 0.2 Baso % (Auto) 0.1 Neut # (Auto) 9.0 H Lymph # (Auto) 0.9 L [place] # (Auto) 0.4 Eos # (Auto) 0.0 Baso # (Auto) 0.0 WBC Differential Manual diff final Seg Neuts % (Manual) 71 H Band Neuts % (Manual) 18 H Lymphocytes % (Manual) 7 L Monocytes % (Manual) 3 Metamyelocytes % (Man) 1 Abs Neuts (Manual) 9.4 H Differential Comment . Toxic Granulation 2+ H Platelet Estimate Normal Platelet Morphology Normal RBC Morphology Normal Sodium 141 Potassium 2.9 L* Chloride 101 Carbon Dioxide 32.4 H Anion Gap 8 BUN 11 Creatinine 0.69 Estimated GFR 88 L POC Glucose 137 H Random Glucose 155 H Calcium 8.8 Microbiology 06/25/18 15:07 Blood - Peripheral Aerobic Blood Culture - Final No growth in 5 days 06/25/18 15:07 Blood - Peripheral Anaerobic Blood Culture - Final No growth in 5 days 06/25/18 15:15 Blood - Peripheral Aerobic Blood Culture - Final No growth in 5 days 06/25/18 15:15 Blood - Peripheral Anaerobic Blood Culture - Final No growth in 5 days Assessment and Plan - Plan Perforated diverticulitis/ Sepsis -General surgery following, NGT removed, liquid diet per general surgery,now with (+) stool in the ostomy. -Antibiotic coverage for gram-negative organisms and anaerobic bacteria. Continue Zosyn for now. Leukocytosis resolved. -pain control with PO Percocet with IV morphine for breakthrough. Respiratory insufficiency/ Asthma Long-standing history of wheezing and bronchospasm without smoking. Recent hospitalization for asthma and presently on long-term high-dose steroid taper. Pulmonology consult appreciated. Continue prednisone, bronchodilators, budesonide, incentive spirometry, Tessalon Perles, keep head of bed up at 30, physical therapy. Follow up sputum culture. HTN Exacerbated by pain, steroids and IVFs. Improved. -continue lisinopril, Norvasc and clonidine patch. -Vasotec as needed. -pain control. Anemia Exacerbated by surgery. Stable. -follow CBC as needed. Stable. Hypokalemia-replaced, check magnesium, recheck BMP tomorrow PPx: Per surgery Discharge Planning: Await surgical clearance. Will need physical therapy with home health care
--- NOTE | 2018-06-30 11:35 | P.DCO ---
- Diagnosis (1) Diverticulitis of colon with perforation - Physical Therapy Order: Evaluate and treat - Home Health Nursing Order: Medical education, Signs/symptoms of disease process, Wound care and dressing changes, Nursing assessment with vital signs - Certification I have seen patient Gale Zamudio on 06/30/18. My clinical findings support the need for the requested home health care services because: Limited mobility due to disease progression, Deconditioned with increased weakness I certify that my clinical findings support that this patient is homebound because: Post-op weakness, Impaired cognitive ability/safety (1) Diverticulitis of colon with perforation Qualifiers: Diverticulitis bleeding: unspecified bleeding status Qualified Code(s): K57.20 - Diverticulitis of large intestine with perforation and abscess without bleeding
[2018-06-30] MEDS: Potassium Chlor 10 mEq Premix 10 MEQ/100 ML PIGGYBACK IV.SIG SCH ×4 (12:24→20:44)
[2018-06-30 13:47] LABS: Anion Gap 10 meq/L (5-15); Blood Urea Nitrogen 11 mg/dL (7-18); Carbon Dioxide 29.5 meq/L (21.0-32.0); Chloride 100 meq/L (98-107); Glomerular Filtration Rate Greater Than 89 mL/min (>89); Glucose,Random 134 mg/dL (74-106); Magnesium 2.1 mg/dL (1.5-2.5); Sodium 139 meq/L (136-145)
--- NOTE | 2018-06-30 13:58 | P.PNGS ---
Subjective Patient reports: feels better, pain is less, tolerating a regular diet Physical Exam Vital signs: Vital Signs 06/29/18 15:57 06/29/18 15:58 06/29/18 16:00 Temperature 97.4 F L Pulse Rate 95 H 80 Respiratory Rate 18 17 Blood Pressure 136/84 Pulse Oximetry 97 94 L 06/29/18 20:00 06/29/18 20:05 06/29/18 23:22 Temperature 97.7 F Pulse Rate 99 H 80 104 H Respiratory Rate 20 16 18 Blood Pressure 137/82 Pulse Oximetry 97 06/30/18 00:00 06/30/18 03:26 06/30/18 04:00 Temperature 97.9 F 98.1 F Pulse Rate 97 H 97 H 87 Respiratory Rate 20 18 20 Blood Pressure 168/95 H 144/97 H Pulse Oximetry 95 97 06/30/18 08:00 06/30/18 12:00 06/30/18 12:10 Temperature 97.8 F 97.8 F Pulse Rate 82 94 H 90 Respiratory Rate 17 17 22 Blood Pressure 163/88 H 147/86 H Pulse Oximetry 94 L 94 L Intake & Output 06/29/18 06/30/18 06/30/18 18:59 06:59 18:59 Intake Total 1200 / 1200 680 / 680 100 / 100 Output Total 1560 / 1560 1350 / 1350 Balance -360 / -360 -670 / -670 100 / 100 Weight 102.1 kg Intake: IV 200 / 200 200 / 200 100 / 100 Zosyn 4.5 GM Premix 4.5 gm In 200 / 200 200 / 200 100 / 100 100 ml @ 200 mls/hr IV.SIG Q6H [facility] Rx#:[id number] Oral 1000 / 1000 480 / 480 Output: Urine 1550 / 1550 1350 / 1350 Wound Drainage 10 / 10 0 / 0 # 1 Right Lateral Abdomen 10 / 10 0 / 0 Narrative: Alert and oriented sitting up in chair Jp dressing intact Ostomy with some output Abdomen soft - Additional findings Additional findings: COLON, SIGMOID, SEGMENTAL RESECTION: - ACUTE DIVERTICULITIS WITH FEATURES OF PERFORATION. ITS Impressions Abdomen/Pelvis CT 06/23/18 09:07 CONCLUSION: 1. There is pneumoperitoneum caused by perforation of the sigmoid colon secondary to diverticulitis. Small pericolonic fluid collection predominately contains air measuring 6.2 x 3.5 cm. Chest X-Ray 06/26/18 06:00 CONCLUSION: No acute cardiopulmonary disease. Laboratory Last Values CBC w Diff Auto diff final 06/23/18 09:20 WBC 10.4 th/mm3 (4.0-11.0) 06/30/18 07: RBC 3.63 mil/mm3 (4.00-5.30) L 06/30/18 07:29 Hgb 11.6 gm/dL (11.6-15.3) 06/30/18 07: Hct 33.1 % (35.0-46.0) L 06/30/18 07: MCV 91.2 fL (80.0-100.0) 06/30/18 07: MCH 32.1 pg (27.0-34.0) 06/30/18 07: MCHC 35.2 % (32.0-36.0) 06/30/18 07: RDW 15.0 % (11.6-17.2) 06/30/18 07: Plt Count 214 th/mm3 (150-450) 06/30/18 07: MPV 8.1 fL (7.0-11.0) 06/30/18 07:29 Prelim Diff (Auto) Slide review pending 06/30/18 07: Neut % (Auto) 86.6 % (16.0-70.0) H 06/30/18 07:29 Lymph % (Auto) 8.9 % (9.0-44.0) L 06/30/18 07: [place] % (Auto) 4.2 % (0.0-8.0) 06/30/18 07: Eos % (Auto) 0.2 % (0.0-4.0) 06/30/18 07: Baso % (Auto) 0.1 % (0.0-2.0) 06/30/18: Neut # (Auto) 9.0 th/mm3 (1.8-7.7) H 06/30/18 07:29 Lymph # (Auto) 0.9 th/mm3 (1.0-4.8) L 06/30/18 07: [place] # (Auto) 0.4 th/mm3 (0.0-0.9) 06/30/18 07:29 Eos # (Auto) 0.0 th/mm3 (0.0-0.4) 06/30/18 07:29 Baso # (Auto) 0.0 th/mm3 (0.0-0.2) 06/30/18 07:29 WBC Differential Manual diff final 06/30/18 07:29 Seg Neuts % (Manual) 71 % (16-70) H 06/30/18 07:29 Band Neuts % (Manual) 18 % (0-6) H 06/30/18 07:29 Lymphocytes % (Manual) 7 % (9-44) L 06/30/18 07:29 Monocytes % (Manual) 3 % (0-8) 06/30/18 07:29 Metamyelocytes % (Man) 1 % (0-1) 06/30/18 07:29 Myelocytes % (Man) 1 % (0-0) H 06/28/18 05:40 Abs Neuts (Manual) 9.4 th/mm3 (1.8-7.7) H 06/30/18 07:29 Differential Comment . 06/30/18 07:29 Toxic Granulation 2+ (None) H 06/30/18 07:29 Platelet Estimate Normal (Normal) 06/30/18 07:29 Platelet Morphology Normal (Normal) 06/30/18 07:29 RBC Morphology Normal (Normal) 06/30/18 07:29 PT 10.3 sec (9.8-11.6) 06/24/18 00:30 INR 1.0 Ratio 06/24/18 00:30 APTT 26.2 sec (24.3-30.1) 06/24/18 00:30 Fibrinogen 612 mg/dL (227-377) H 06/24/18 00:30 Puncture Site Margarita 06/23/18 22:31 Patient Temperature 98.6 06/23/18 22:31 O2 Saturation 97 % (90-100) 06/23/18 22:31 ABG pH 7.42 (7.380-7.420) 06/23/18 22:31 ABG pCO2 32 mmHg (38-42) L 06/23/18 22:31 ABG pO2 201 mmHg (61-120) H 06/23/18 22:31 ABG HCO3 21 mmol/L (22-26) L 06/23/18 22:31 ABG O2 Content 16.6 Vol % (12.0-20.0) 06/23/18 22:31 ABG Base Excess -3.1 mmol/L (-2-2) L 06/23/18 22:31 ABG Methemoglobin 1.2 % (0-2) 06/23/18 22:31 Hemoglobin 11.8 G/DL (12.0-16.0) L 06/23/18 22:31 Carboxyhemoglobin 1.2 % (0-4) 06/23/18 22:31 O2 Delivery Device Ventilator 06/23/18 22:31 Vent Setting See comment 06/23/18 22:31 Inspired O2 50 % 06/23/18 22:31 Critical Value No 06/23/18 22:31 Sodium 139 meq/L (136-145) 06/30/18 12:35 Potassium 3.0 meq/L (3.5-5.1) L 06/30/18 12:35 Chloride 100 meq/L (98-107) 06/30/18 12:35 Carbon Dioxide 29.5 meq/L (21.0-32.0) 06/30/18 12:35 Anion Gap 10 meq/L (5-15) 06/30/18 12:35 BUN 11 mg/dL (7-18) 06/30/18 12:35 Creatinine 0.65 mg/dL (0.50-1.00) 06/30/18 12:35 Estimated GFR Greater than 89 mL/min (>89) 06/30/18 12:35 POC Glucose 142 mg/dl (68-110) H 06/30/18 12:26 Random Glucose 134 mg/dL (74-106) H 06/30/18 12:35 Lactic Acid 1.2 mmol/L (0.4-2.0) 06/24/18 05:30 Calcium 9.0 mg/dL (8.5-10.1) 06/30/18 12:35 Prot Corrected Calcium 8.4 mg/dL (8.5-10.1) L 06/23/18 21:10 Phosphorus 3.6 mg/dL (2.5-4.9) 06/24/18 05:30 Magnesium 2.1 mg/dL (1.5-2.5) 06/30/18 12:35 Total Bilirubin 0.5 mg/dL (0.2-1.0) 06/28/18 05:40 Direct Bilirubin 0.2 mg/dL (0.0-0.2) 06/28/18 05:40 Indirect Bilirubin 0.3 mg/dL (0.0-0.8) 06/28/18 05:40 AST 23 U/L (15-37) 06/28/18 05:40 ALT 37 U/L (10-53) 06/28/18 05:40 Alkaline Phosphatase 68 U/L (45-117) 06/28/18 05:40 Total Protein 6.7 g/dL (6.4-8.2) D 06/28/18 05:40 Albumin 2.2 g/dL (3.4-5.0) L 06/28/18 05:40 Lipase 111 U/L (73-393) 06/23/18 09:20 Nasal Screen MRSA (PCR) Not detected (Negative) 06/25/18 17:51 Blood Type O Positive 06/23/18 11:05 Blood Type Recheck Required 06/23/18 11:05 Antibody Screen Negative 06/23/18 11:05 - Urinary Catheter Management Indwelling Urethral Catheter Cath placed during this visit: yes, but has since been removed by the nurse Reason for continuing: Not indwelling catheter Insertion time: 15:00 Removal date: 06/27/18 Removal time: 11:15 Assessment and Plan - Assessment (1) Diverticulitis of colon with perforation Code(s): K57.20 - Diverticulitis of large intestine with perforation and abscess without bleeding Status: Acute - Plan Doing well from colon resection from perforated diverticulitis Wound healing with jp dressing Patient anticipates discharge in next 2448 hrs. - Attending Attestation NOTE FOR SURGICAL ATTENDING, DR. SHANTELLE MCKEON I attest that I had a [id number] encounter with the patient on the same day, and personally performed and documented my assessment and findings in the medical record. The following services were provided during this hospital visit: Chart data review, vital sign assessments/reviewing monitor data Review of consultations notes if present. Medication orders/review and/or management Ordering and/or reviewing lab tests Ordering and/or interpreting/reviewing x-rays and/or diagnostic studies Care of the patient and discussion of the patient with the care team Documentation time To help prompt me to consider important information that might be impacting today's encounter and assessment, Information from prior notes written by myself or my colleagues may have been "brought forward/copy and pasted" into today's note. (1) Diverticulitis of colon with perforation Qualifiers: Diverticulitis bleeding: without bleeding Qualified Code(s): K57.20 - Diverticulitis of large intestine with perforation and abscess without bleeding
[2018-06-30] MEDS: Benzonatate 100 MG Capsule PO PRN (20:48)
[2018-07-01] MEDS: Insulin NovoLOG Aspart Correctional Sugar Inj SQ SCH ×5 (00:22→23:08)
[2018-07-01] MEDS: Oral Hygiene Kit OROPHARYNG SCH ×5 (00:23→23:09)
[2018-07-01] MEDS: Piperacil/Tazo 4.5 GM Premix 4.5 GM/100 ML BAG IV.SIG SCH ×4 (05:25→22:30)
[2018-07-01] MEDS: oxyCODONE/Acetaminophen 10/325 Tablet PO PRN ×3 (05:25→20:00)
[2018-07-01] MEDS: Benzonatate 100 MG Capsule PO PRN (05:32)
[2018-07-01 08:45] LABS: Calcium 9.5 mg/dL (8.5-10.1); Carbon Dioxide 28.4 meq/L (21.0-32.0); Potassium 4.5 meq/L (3.5-5.1)
--- NOTE | 2018-07-01 09:18 | P.PNGS ---
Subjective Patient reports: feels better, pain is less, flatus, bowel movement Physical Exam Vital signs: Vital Signs 06/30/18 12:00 06/30/18 12:10 06/30/18 16:00 Temperature 97.8 F 97.0 F L Pulse Rate 94 H 90 83 Respiratory Rate 17 22 17 Blood Pressure 147/86 H 152/83 H Pulse Oximetry 94 L 95 06/30/18 16:26 06/30/18 19:56 06/30/18 20:00 Temperature 97.6 F Pulse Rate 98 H 99 H 95 H Respiratory Rate 22 16 18 Blood Pressure 154/96 H Pulse Oximetry 97 07/01/18 00:00 07/01/18 00:24 07/01/18 04:00 Temperature 98 F 97.6 F Pulse Rate 89 95 H 86 Respiratory Rate 18 16 18 Blood Pressure 145/71 H 139/93 H Pulse Oximetry 96 96 07/01/18 08:49 Temperature Pulse Rate 99 H Respiratory Rate 12 Blood Pressure Pulse Oximetry Intake & Output 06/30/18 07/01/18 07/01/18 18:59 06:59 18:59 Intake Total 1260 / 1260 980 / 980 Output Total 1050 / 1050 1190 / 1190 Balance 210 / 210 -210 / -210 Weight 101.9 kg Intake: IV 300 / 300 500 / 500 Zosyn 4.5 GM Premix 4.5 gm In 100 / 100 300 / 300 100 ml @ 200 mls/hr IV.SIG Q6H [facility] Rx#:[id number] KCl 10 mEq Premix Inj 10 meq In 200 / 200 200 / 200 100 ml @ 100 mls/hr IV.SIG Q1H [facility] Rx#:[id number] Oral 960 / 960 480 / 480 Output: Urine 1050 / 1050 1150 / 1150 Wound Drainage 40 / 40 # 1 Right Lateral Abdomen 40 / 40 Other: Date of Last Bowel Movement 06/30/18 - Routine Cardiovascular Exam Present: RRR - Routine Abdominal Exam Present: soft (incision c/d/i, eleuterio scant serosang) - Urinary Catheter Management Indwelling Urethral Catheter Cath placed during this visit: yes, but has since been removed by the nurse Reason for continuing: Not indwelling catheter Insertion time: 15:00 Removal date: 06/27/18 Removal time: 11:15 Assessment and Plan - Assessment (1) Diverticulitis of colon with perforation Code(s): K57.20 - Diverticulitis of large intestine with perforation and abscess without bleeding Status: Acute - Plan s/p Perf divertculitis, Septic shock, leukocytosis- possible sepsis vs steriods s/p ex lap colostomy PLAN d/c eleuterio po abx pain control regular diet remove jp medicine tx for cough and htn ambulate anticipate d/c 24-48hours (1) Diverticulitis of colon with perforation Qualifiers: Diverticulitis bleeding: without bleeding Qualified Code(s): K57.20 - Diverticulitis of large intestine with perforation and abscess without bleeding
--- NOTE | 2018-07-01 10:17 | P.PNIM ---
Subjective Interval history: Patient says she is feeling all right. She does have a nonproductive cough, says it hurts her abdomen to take a deep breath Physical Exam Vital signs: Vital Signs 06/30/18 12:00 06/30/18 12:10 06/30/18 16:00 Temperature 97.8 F 97.0 F L Pulse Rate 94 H 90 83 Respiratory Rate 17 22 17 Blood Pressure 147/86 H 152/83 H Pulse Oximetry 94 L 95 06/30/18 16:26 06/30/18 19:56 06/30/18 20:00 Temperature 97.6 F Pulse Rate 98 H 99 H 95 H Respiratory Rate 22 16 18 Blood Pressure 154/96 H Pulse Oximetry 97 07/01/18 00:00 07/01/18 00:24 07/01/18 04:00 Temperature 98 F 97.6 F Pulse Rate 89 95 H 86 Respiratory Rate 18 16 18 Blood Pressure 145/71 H 139/93 H Pulse Oximetry 96 96 07/01/18 08:00 07/01/18 08:49 Temperature 97.8 F Pulse Rate 80 99 H Respiratory Rate 18 12 Blood Pressure 156/80 H Pulse Oximetry 96 Intake & Output 06/30/18 07/01/18 07/01/18 18:59 06:59 18:59 Intake Total 1260 / 1260 980 / 980 Output Total 1050 / 1050 1190 / 1190 Balance 210 / 210 -210 / -210 Weight 101.9 kg Intake: IV 300 / 300 500 / 500 Zosyn 4.5 GM Premix 4.5 gm In 100 / 100 300 / 300 100 ml @ 200 mls/hr IV.SIG Q6H SHANDRA Rx#:[id number] KCl 10 mEq Premix Inj 10 meq In 200 / 200 200 / 200 100 ml @ 100 mls/hr IV.SIG Q1H SHANDRA Rx#:[id number] Oral 960 / 960 480 / 480 Output: Urine 1050 / 1050 1150 / 1150 Wound Drainage 40 / 40 # 1 Right Lateral Abdomen 40 / 40 Other: Date of Last Bowel Movement 06/30/18 Narrative: GENERAL: Sitting up in bed. Appears comfortable. SKIN: Warm and dry. HEAD: Normocephalic. EYES: No scleral icterus. No injection or drainage. NECK: Supple, trachea midline. No JVD. CARDIOVASCULAR: Regular rate and rhythm without murmurs, gallops, or rubs. RESPIRATORY: Breath sounds equal bilaterally. No accessory muscle use. GASTROINTESTINAL: Abdomen soft, non-tender, nondistended. MUSCULOSKELETAL: No cyanosis, or edema. BACK: Nontender without obvious deformity. No CVA tenderness. - Urinary Catheter Management Indwelling Urethral Catheter Cath placed during this visit: yes, but has since been removed by the nurse Reason for continuing: Not indwelling catheter Insertion time: 15:00 Removal date: 06/27/18 Removal time: 11:15 Results - Labs CBC & Chem 7: 06/30/18 07:29 07/01/18 07:56 Laboratory Results - last 24 hr 06/30/18 06/30/18 06/30/18 07:29 12:26 12:35 WBC Differential Manual diff final Seg Neuts % (Manual) 71 H Band Neuts % (Manual) 18 H Lymphocytes % (Manual) 7 L Monocytes % (Manual) 3 Metamyelocytes % (Man) 1 Abs Neuts (Manual) 9.4 H Toxic Granulation 2+ H Platelet Estimate Normal Platelet Morphology Normal RBC Morphology Normal Sodium 139 Potassium 3.0 L Chloride 100 Carbon Dioxide 29.5 Anion Gap 10 BUN 11 Creatinine 0.65 Estimated GFR Greater than 89 POC Glucose 142 H Random Glucose 134 H Calcium 9.0 Magnesium 2.1 06/30/18 07/01/18 07/01/18 18:33 00:20 05:24 WBC Differential Seg Neuts % (Manual) Band Neuts % (Manual) Lymphocytes % (Manual) Monocytes % (Manual) Metamyelocytes % (Man) Abs Neuts (Manual) Toxic Granulation Platelet Estimate Platelet Morphology RBC Morphology Sodium Potassium Chloride Carbon Dioxide Anion Gap BUN Creatinine Estimated GFR POC Glucose 141 H 144 H 186 H Random Glucose Calcium Magnesium 07/01/18 07:56 WBC Differential Seg Neuts % (Manual) Band Neuts % (Manual) Lymphocytes % (Manual) Monocytes % (Manual) Metamyelocytes % (Man) Abs Neuts (Manual) Toxic Granulation Platelet Estimate Platelet Morphology RBC Morphology Sodium 140 Potassium 4.5 D Chloride 103 Carbon Dioxide 28.4 Anion Gap 9 BUN 12 Creatinine 0.76 Estimated GFR 78 L POC Glucose Random Glucose 133 H Calcium 9.5 Magnesium Microbiology 06/25/18 15:07 Blood - Peripheral Aerobic Blood Culture - Final No growth in 5 days 06/25/18 15:07 Blood - Peripheral Anaerobic Blood Culture - Final No growth in 5 days 06/25/18 15:15 Blood - Peripheral Aerobic Blood Culture - Final No growth in 5 days 06/25/18 15:15 Blood - Peripheral Anaerobic Blood Culture - Final No growth in 5 days Assessment and Plan - Plan ///Perforated diverticulitis/ Sepsis -General surgery following, NGT removed, liquid diet per general surgery,now with (+) stool in the ostomy. -Antibiotic coverage for gram-negative organisms and anaerobic bacteria. Continue Zosyn for now. Leukocytosis resolved. -pain control with PO Percocet with IV morphine for breakthrough. = Discharge home with home health when cleared by general surgery. //Respiratory insufficiency/ Asthma Long-standing history of wheezing and bronchospasm without smoking. Recent hospitalization for asthma and presently on long-term high-dose steroid taper. Pulmonology consult appreciated. Continue prednisone, bronchodilators, budesonide, incentive spirometry, Tessalon Perles, keep head of bed up at 30, physical therapy. Follow up sputum culture. = We will add Acapella to prevent atelectasis. //HTN Exacerbated by pain, steroids and IVFs. Improved. -continue lisinopril, Norvasc and clonidine patch. -Vasotec as needed. -pain control. = Blood pressure acceptable. Continue to monitor. //Anemia Exacerbated by surgery. Stable. -follow CBC as needed. Stable. //Hypokalemia-replaced, check magnesium, recheck BMP tomorrow //PPx: Per surgery Discharge Planning: Await surgical clearance. Will need physical therapy with home health care
[2018-07-01] MEDS: Lisinopril 20 MG Tablet PO SCH (10:26)
[2018-07-01] MEDS: predniSONE 20 MG Tablet PO SCH ×2 (10:26→20:00)
[2018-07-01] MEDS: Enoxaparin Inj 40 MG/0.4 ML Syringe SQ SCH ×2 (10:26→20:02)
[2018-07-01] MEDS: amLODIPine 5 MG Tablet PO SCH (10:26)
[2018-07-01] MEDS: Famotidine PF Inj 20 MG/2 ML Vial IV.PUSH SCH ×2 (10:27→20:02)
[2018-07-01] MEDS: Hypromellose 0.3% Opth Gel 10 GM Bottle EACH EYE SCH ×2 (10:27→20:13)
--- NOTE | 2018-07-01 15:24 | P.DCO ---
- Diagnosis (1) Diverticulitis of colon with perforation - Home Health Nursing Order: Wound care and dressing changes Instructions: Continue colostomy care and teaching - Certification I have seen patient Gale Zamudio on 07/01/18. My clinical findings support the need for the requested home health care services because: Patient has SOB, Deconditioned with increased weakness I certify that my clinical findings support that this patient is homebound because: Post-op weakness (1) Diverticulitis of colon with perforation Qualifiers: Diverticulitis bleeding: without bleeding Qualified Code(s): K57.20 - Diverticulitis of large intestine with perforation and abscess without bleeding
--- NOTE | 2018-07-01 15:56 | P.PNWCN ---
Wound Care Nurse Consult Description: Consult for New Ostomy Teaching per CECY Khan Communicated with: Patient Recommendation: Monitor stoma for red/pink moist color and output. Empty pouch when 1/3-1/2 full of effluent. Change wafer and pouch using taurus seal and 2 1/4"" moldable appliance Q5D and PRN for leaks. Additional information: Patient seen on for ostomy assessment, ostomy appliance change, and reinforcement of teaching. Bowel Diversion Stoma - Bowel Stoma Left Lower Abdomen Stoma Edema: Yes (mild) Stoma Appearance: Oval (1" tall x 1 3/4" wide making it difficult to pouch as the medium wafer we offer is too big and the small is just that, too small.), Protruding Collection Device: Two-piece, Moldable Wafer Drainage Description: Soft, Brown Wafer Size: 2 1/4 Moldable Stoma Care: Pouch and Wafer Changed, Skin Care Daphne-Stomal Skin Appearance: Intact Daphne-Stomal Surrounding Tissue Sensation Description: No Symptoms - Additional Information Additional Information: Appliance changed from opaque one piece to a moldable transparent 2 piece with low pressure adaptor. One piece transparent pouches ordered from [facility] with a clip tail closure for trial that physician may visualize stoma through. Patient is aware that several different appliances may be trialed before finding one that works for her.
--- NOTE | 2018-07-01 18:09 | P.PNPL ---
Subjective Interval history: 57 YOWF with Br asthma, s/p perforatedsigmoid diverticulitis Breathing better Cough better Tolerates PO Weaned to RA Physical Exam Vital signs: Vital Signs 06/30/18 19:56 06/30/18 20:00 07/01/18 00:00 Temperature 97.6 F 98 F Pulse Rate 99 H 95 H 89 Respiratory Rate 16 18 18 Blood Pressure 154/96 H 145/71 H Pulse Oximetry 97 96 07/01/18 00:24 07/01/18 04:00 07/01/18 08:00 Temperature 97.6 F 97.8 F Pulse Rate 95 H 86 80 Respiratory Rate 16 18 18 Blood Pressure 139/93 H 156/80 H Pulse Oximetry 96 96 07/01/18 08:49 07/01/18 11:31 07/01/18 12:00 Temperature 97.9 F Pulse Rate 99 H 93 H 96 H Respiratory Rate 12 12 18 Blood Pressure 145/83 H Pulse Oximetry 97 07/01/18 16:00 Temperature 97.9 F Pulse Rate 98 H Respiratory Rate 18 Blood Pressure 132/69 Pulse Oximetry 97 Intake & Output 06/30/18 07/01/18 07/01/18 18:59 06:59 18:59 Intake Total 1260 / 1260 980 / 980 920 / 920 Output Total 1050 / 1050 1190 / 1190 Balance 210 / 210 -210 / -210 920 / 920 Weight 101.9 kg Intake: IV 300 / 300 500 / 500 100 / 100 Zosyn 4.5 GM Premix 4.5 gm In 100 / 100 300 / 300 100 / 100 100 ml @ 200 mls/hr IV.SIG Q6H SHANDRA Rx#:[id number] KCl 10 mEq Premix Inj 10 meq In 200 / 200 200 / 200 100 ml @ 100 mls/hr IV.SIG Q1H SHANDRA Rx#:[id number] Oral 960 / 960 480 / 480 820 / 820 Output: Urine 1050 / 1050 1150 / 1150 Wound Drainage 40 / 40 # 1 Right Lateral Abdomen 40 / 40 Other: # Voids 5 Date of Last Bowel Movement 06/30/18 GENERAL: WBWN WF,NAD SKIN: Warm and dry. HEAD: Normocephalic. EYES: No scleral icterus. No injection or drainage. NECK: Supple, trachea midline. No JVD or lymphadenopathy. CARDIOVASCULAR: Regular rate and rhythm without murmurs, gallops, or rubs. RESPIRATORY: Breath sounds equal bilaterally. No accessory muscle use. GASTROINTESTINAL: Abdomen soft, non-tender, nondistended. MUSCULOSKELETAL: No cyanosis, or edema. BACK: Nontender without obvious deformity. No CVA tenderness. - Urinary Catheter Management Indwelling Urethral Catheter Cath placed during this visit: yes, but has since been removed by the nurse Reason for continuing: Not indwelling catheter Insertion time: 15:00 Removal date: 06/27/18 Removal time: 11:15 Assessment and Plan - Plan IMPRESSION: 1. Bronchial asthma. 2. Persistent cough. 3. Diverticulitis with perforation, status post sigmoid colectomy and colostomy. PLAN: Aerosol nebs NGT removed Wean 02 Stable from Pulm standpoint.
[2018-07-02] MEDS: oxyCODONE/Acetaminophen 10/325 Tablet PO PRN ×3 (01:50→10:11)
[2018-07-02] MEDS: Oral Hygiene Kit OROPHARYNG SCH (04:11)
[2018-07-02] MEDS: Piperacil/Tazo 4.5 GM Premix 4.5 GM/100 ML BAG IV.SIG SCH ×2 (04:12→11:21)
[2018-07-02] MEDS: Insulin NovoLOG Aspart Correctional Sugar Inj SQ SCH (05:56)
[2018-07-02] MEDS: Lisinopril 20 MG Tablet PO SCH (08:53)
[2018-07-02] MEDS: Enoxaparin Inj 40 MG/0.4 ML Syringe SQ SCH (08:53)
[2018-07-02] MEDS: Hypromellose 0.3% Opth Gel 10 GM Bottle EACH EYE SCH (08:53)
[2018-07-02] MEDS: amLODIPine 5 MG Tablet PO SCH (08:53)
[2018-07-02] MEDS: Famotidine PF Inj 20 MG/2 ML Vial IV.PUSH SCH (08:53)
[2018-07-02] MEDS: predniSONE 20 MG Tablet PO SCH (08:53)
--- NOTE | 2018-07-02 10:00 | P.PNIM ---
Subjective Interval history: Says she is feeling better than yesterday. Feels like going home. Denies any chest pain or shortness of breath. Physical Exam Vital signs: Vital Signs 07/01/18 11:31 07/01/18 12:00 07/01/18 16:00 Temperature 97.9 F 97.9 F Pulse Rate 93 H 96 H 98 H Respiratory Rate 12 18 18 Blood Pressure 145/83 H 132/69 Pulse Oximetry 97 97 07/01/18 20:00 07/01/18 21:25 07/02/18 00:00 Temperature 98.0 F 97.8 F Pulse Rate 100 H 90 104 H Respiratory Rate 19 16 20 Blood Pressure 154/92 H 151/99 H Pulse Oximetry 97 98 07/02/18 04:00 07/02/18 08:00 07/02/18 08:41 Temperature 97.8 F 97.5 F L Pulse Rate 91 H 94 H 88 Respiratory Rate 18 16 16 Blood Pressure 137/78 170/94 H Pulse Oximetry 98 94 L Intake & Output 07/01/18 07/02/18 07/02/18 18:59 06:59 18:59 Intake Total 920 / 920 300 / 300 Output Total 1400 / 1400 Balance 920 / 920 -1100 / -1100 Weight 100.4 kg Intake: IV 100 / 100 300 / 300 Zosyn 4.5 GM Premix 4.5 gm In 100 / 100 300 / 300 100 ml @ 200 mls/hr IV.SIG Q6H SHANDRA Rx#:[id number] Oral 820 / 820 Output: Urine 1400 / 1400 Other: # Voids 5 2 Date of Last Bowel Movement 06/30/18 Narrative: GENERAL: Sitting up in bed. Appears comfortable. Smiling today. SKIN: Warm and dry. HEAD: Normocephalic. EYES: No scleral icterus. No injection or drainage. NECK: Supple, trachea midline. No JVD. CARDIOVASCULAR: Regular rate and rhythm without murmurs, gallops, or rubs. RESPIRATORY: Breath sounds equal bilaterally. No accessory muscle use. GASTROINTESTINAL: Abdomen soft, non-tender, nondistended. MUSCULOSKELETAL: No cyanosis, or edema. BACK: Nontender without obvious deformity. No CVA tenderness. - Urinary Catheter Management Indwelling Urethral Catheter Cath placed during this visit: yes, but has since been removed by the nurse Reason for continuing: Not indwelling catheter Insertion time: 15:00 Removal date: 06/27/18 Removal time: 11:15 Results - Labs CBC & Chem 7: 06/30/18 07:29 07/01/18 07:56 Laboratory Results - last 24 hr 07/01/18 07/01/18 07/01/18 11:59 17:56 23:06 POC Glucose 124 H 182 H 122 H 07/02/18 05:54 POC Glucose 141 H Assessment and Plan - Plan ///Perforated diverticulitis/ Sepsis -General surgery following, NGT removed, liquid diet per general surgery,now with (+) stool in the ostomy. -Antibiotic coverage for gram-negative organisms and anaerobic bacteria. Continue Zosyn for now. Leukocytosis resolved. -pain control with PO Percocet with IV morphine for breakthrough. = Cleared by general surgery. We will switch to Augmentin at discharge to complete treatment course. Discussed with general surgery. Discharge home with home health when set up. //Respiratory insufficiency/ Asthma Long-standing history of wheezing and bronchospasm without smoking. Recent hospitalization for asthma and presently on long-term high-dose steroid taper. Pulmonology consult appreciated. Continue prednisone, bronchodilators, budesonide, incentive spirometry, Tessalon Perles, keep head of bed up at 30, physical therapy. Follow up sputum culture. = Continue Acapella to prevent atelectasis. Respiratory status stable. Discharge home on home meds. //HTN Exacerbated by pain, steroids and IVFs. Improved. -continue lisinopril, Norvasc and clonidine patch. -Vasotec as needed. -pain control. = Blood pressure acceptable. Continue to monitor. //Anemia Exacerbated by surgery. Stable. -follow CBC as needed. Stable. //Hypokalemia-replaced, check magnesium, recheck BMP tomorrow //PPx: Per surgery Discharge Planning: Surgery cleared for discharge. Discharge home. Follow-up with primary care as outpatient. Follow-up with general surgery as outpatient.
--- NOTE | 2018-07-02 10:02 | P.DS ---
Date of admission: 06/23/18 11:31 Primary care physician: Dmitriy Lewis MD Brief History from admission: This 57-year-old woman developed severe left-sided abdominal pain and presented to the [facility] emergency department afebrile and without white blood cell count elevation. CAT scan of the abdomen revealed a large amount of contained peritoneal air surrounding a area of perforated diverticulitis in the sigmoid colon. She is tachycardic and moderately hypotensive considering her normal hypertensive state. By definition she is in severe sepsis and a fluid resuscitation was begun in the [place] emergency department by Dr. Lewis. Arrangements were made to rapidly transfer her to the [facility] surgical intensive care unit where I have met her on her arrival. Her care is complicated by a crescendo pattern of asthma which is required several hospitalizations recently at [facility]. Most recently she has been on a high-dose steroid taper and is down to prednisone 30 mg daily. She has been evaluated previously by a seismograph computer for reactive airway disease, possibly related to mold exposure according to her records. DS: Medications - Discharge Medications Prescriptions: amoxicillin-pot clavulanate [Augmentin] 1 tab PO BID #14 tab DS: Summary Hospital Course: Patient was admitted with sepsis, found to have perforated diverticulitis on imaging. Patient was managed with aggressive IV fluids, broad-spectrum antibiotics. General surgery was consulted and patient underwent partial colectomy with ostomy. Sepsis improved, patient will be transitioned to Augmentin to complete treatment course. Hospitalization was complicated by respiratory insufficiency, asthma exacerbation. This was managed with steroids , nebs with improvement. Patient is to follow-up with general surgery as outpatient. For problem based summary from most recent progress note, please see below. ///Perforated diverticulitis/ Sepsis -General surgery following, NGT removed, liquid diet per general surgery,now with (+) stool in the ostomy. -Antibiotic coverage for gram-negative organisms and anaerobic bacteria. Continue Zosyn for now. Leukocytosis resolved. -pain control with PO Percocet with IV morphine for breakthrough. = Cleared by general surgery. We will switch to Augmentin at discharge to complete treatment course. Discussed with general surgery. Discharge home with home health when set up. //Respiratory insufficiency/ Asthma Long-standing history of wheezing and bronchospasm without smoking. Recent hospitalization for asthma and presently on long-term high-dose steroid taper. Pulmonology consult appreciated. Continue prednisone, bronchodilators, budesonide, incentive spirometry, Tessalon Perles, keep head of bed up at 30, physical therapy. Follow up sputum culture. = Continue Acapella to prevent atelectasis. Respiratory status stable. Discharge home on home meds. //HTN Exacerbated by pain, steroids and IVFs. Improved. -continue lisinopril, Norvasc and clonidine patch. -Vasotec as needed. -pain control. = Blood pressure acceptable. Continue to monitor. //Anemia Exacerbated by surgery. Stable. -follow CBC as needed. Stable. //Hypokalemia-replaced, check magnesium, recheck BMP tomorrow //PPx: Per surgery Discharge Planning: Surgery cleared for discharge. Discharge home. Follow-up with primary care as outpatient. Follow-up with general surgery as outpatient. - Time Spent with Patient Total time spent providing and/or coordinating discharge services: Greater than 30 minutes - Quality: VTE Deep Vein Thrombosis/Pulmonary Embolism Present on Admission: No Exam Vital signs: Vital Signs 07/01/18 11:31 07/01/18 12:00 07/01/18 16:00 Temperature 97.9 F 97.9 F Pulse Rate 93 H 96 H 98 H Respiratory Rate 12 18 18 Blood Pressure 145/83 H 132/69 Pulse Oximetry 97 97 07/01/18 20:00 07/01/18 21:25 07/02/18 00:00 Temperature 98.0 F 97.8 F Pulse Rate 100 H 90 104 H Respiratory Rate 19 16 20 Blood Pressure 154/92 H 151/99 H Pulse Oximetry 97 98 07/02/18 04:00 07/02/18 08:00 07/02/18 08:41 Temperature 97.8 F 97.5 F L Pulse Rate 91 H 94 H 88 Respiratory Rate 18 16 16 Blood Pressure 137/78 170/94 H Pulse Oximetry 98 94 L Intake & Output 07/01/18 07/02/18 07/02/18 18:59 06:59 18:59 Intake Total 920 / 920 300 / 300 Output Total 1400 / 1400 Balance 920 / 920 -1100 / -1100 Weight 100.4 kg Intake: IV 100 / 100 300 / 300 Zosyn 4.5 GM Premix 4.5 gm In 100 / 100 300 / 300 100 ml @ 200 mls/hr IV.SIG Q6H SHANDRA Rx#:[id number] Oral 820 / 820 Output: Urine 1400 / 1400 Other: # Voids 5 2 Date of Last Bowel Movement 06/30/18 Results Procedures completed during hospitalization: Colectomy with ostomy. Please see report. Completed studies during hospitalization: Pending at discharge 06/23/18 07:26 Surgical [PTH] Routine Labs on day of discharge: Labs from last 24 hours 07/02/18 07/01/18 07/01/18 05:54 23:06 17:56 POC Glucose 141 H 122 H 182 H 07/01/18 11:59 POC Glucose 124 H - Impressions ITS Impressions Abdomen/Pelvis CT 06/23/18 09:07 CONCLUSION: 1. There is pneumoperitoneum caused by perforation of the sigmoid colon secondary to diverticulitis. Small pericolonic fluid collection predominately contains air measuring 6.2 x 3.5 cm. Chest X-Ray 06/26/18 06:00 CONCLUSION: No acute cardiopulmonary disease. Discharge Plan - Discharge Disposition Patient Disposition: /Home Health Service - Discharge Condition Condition: Good - Discharge Order Discharge Orders: Discharge Order (Routine); Ordered 07/02/18 Ordered By: Jong Garcia - Discharge Details Anticipated Discharge Date: 07/02/18 - Physicians Team Primary Care Provider: Dmitriy Lewis Attending Provider: Jong Garcia Other Providers: Huey Agee MD ; Surgeons,[facility] ; Romuol Gaming MD
--- NOTE | 2018-07-02 10:39 | P.PNPL ---
Subjective Interval history: 57 YOWF with Br asthma, s/p perforatedsigmoid diverticulitis Breathing better Cough better Tolerates PO Weaned to RA Ambulates Physical Exam Vital signs: Vital Signs 07/01/18 11:31 07/01/18 12:00 07/01/18 16:00 Temperature 97.9 F 97.9 F Pulse Rate 93 H 96 H 98 H Respiratory Rate 12 18 18 Blood Pressure 145/83 H 132/69 Pulse Oximetry 97 97 07/01/18 20:00 07/01/18 21:25 07/02/18 00:00 Temperature 98.0 F 97.8 F Pulse Rate 100 H 90 104 H Respiratory Rate 19 16 20 Blood Pressure 154/92 H 151/99 H Pulse Oximetry 97 98 07/02/18 04:00 07/02/18 08:00 07/02/18 08:41 Temperature 97.8 F 97.5 F L Pulse Rate 91 H 94 H 88 Respiratory Rate 18 16 16 Blood Pressure 137/78 170/94 H Pulse Oximetry 98 94 L Intake & Output 07/01/18 07/02/18 07/02/18 18:59 06:59 18:59 Intake Total 920 / 920 300 / 300 Output Total 1400 / 1400 Balance 920 / 920 -1100 / -1100 Weight 100.4 kg Intake: IV 100 / 100 300 / 300 Zosyn 4.5 GM Premix 4.5 gm In 100 / 100 300 / 300 100 ml @ 200 mls/hr IV.SIG Q6H SHANDRA Rx#:[id number] Oral 820 / 820 Output: Urine 1400 / 1400 Other: # Voids 5 2 Date of Last Bowel Movement 06/30/18 GENERAL: WBWN,NAD SKIN: Warm and dry. HEAD: Normocephalic. EYES: No scleral icterus. No injection or drainage. NECK: Supple, trachea midline. No JVD or lymphadenopathy. CARDIOVASCULAR: Regular rate and rhythm without murmurs, gallops, or rubs. RESPIRATORY: Breath sounds equal bilaterally. No accessory muscle use. GASTROINTESTINAL: Abdomen soft, non-tender, nondistended. MUSCULOSKELETAL: No cyanosis, or edema. BACK: Nontender without obvious deformity. No CVA tenderness. - Urinary Catheter Management Indwelling Urethral Catheter Cath placed during this visit: yes, but has since been removed by the nurse Reason for continuing: Not indwelling catheter Insertion time: 15:00 Removal date: 06/27/18 Removal time: 11:15 Assessment and Plan - Plan IMPRESSION: 1. Bronchial asthma. 2. Persistent cough. 3. Diverticulitis with perforation, status post sigmoid colectomy and colostomy. PLAN: Aerosol nebs NGT removed Stable on RA Stable from Pulm standpoint. DC plans for home
--- NOTE | 2018-07-08 14:25 | MP ---
cc: Huey Agee MD DATE OF OPERATION: 06/23/2018 Corrected Copy: 07/19/18 PREOPERATIVE DIAGNOSIS: Perforated viscous, perforated diverticulitis, acute abdomen and septic shock. POSTOPERATIVE DIAGNOSIS: Perforated viscous, perforated diverticulitis, acute abdomen and septic shock. PROCEDURE PERFORMED: 1. Diagnostic laparoscopy. 2. Exploratory laparotomy. 3. Sigmoid colectomy. 4. End colostomy. 5. JOSH placement. SURGEON: Huey Agee MD SENIOR COUNSEL: See OR sheet. ANESTHESIA: GETA. IV FLUIDS: See anesthesia sheet. ESTIMATED BLOOD LOSS: 5 mL DRAINS: A 19-St Helenian Vazquez drain placed in pelvis. COMPLICATIONS: None. FINDINGS: Contamination of intra-abdominal cavity, intra-abdominal free air, perforation of sigmoid, good hemostasis. INDICATIONS FOR PROCEDURE: This is a 57-year-old female who presents with acute onset of abdominal pain. The patient was noted to have an acute abdomen, normal white blood cell count, peritoneal signs, and free air, with large abscess on CT scan. Decision was made for emergent operative intervention. DETAILS OF PROCEDURE: The patient was taken to the operating suite, placed in supine position. She was prepped and draped in the usual sterile fashion after induction of general endotracheal anesthesia. Brief timeout stated point patient, procedure, surgical site. We were all in agreement with this. Attention first directed to the left upper quadrant where local anesthetic was injected. Small stab incision was made with a 15 blade. A Visiport 5 mm Optiview was used to enter the abdomen safely. On cursory inspection, no evidence of injury. Bowel noted to be somewhat dilated, and there was gross intra-abdominal contamination with feculence. At this point, decision for open exploratory laparotomy was made. A midline incision was made with a #11 blade. Further dissection done with electrocautery through the fascia, down to the peritoneum. Peritoneum was grasped with forceps and Metzenbaum used to incise the peritoneum. Entry into the abdomen again noted significant fecal contamination. Irrigation done to the abdomen with 3 liters of normal saline. The bowel was identified and noted to have a significantly large perforation contained within this. This was initially oversewn to control contamination. The sigmoid colon was mobilized from the lateral peritoneal attachments, white line of Toldt extending up to the splenic flexure. This was done with a Harmonic scalpel. The dissection continued caudad. The Indigio RIAZ stapler was used in order to transect the sigmoid at the rectosigmoid junction, identification of the ureter and protected was done. The Harmonic scalpel was used to incise the mesentery. The vessels were oversewn with 3-0 Vicryl suture. This was done in order to remove the sigmoid in its entirety. Once the proximal portion was mobilized enough. An Endo-RIAZ 75 blue load staple was used to transect this portion. Again, this was mobilized as well. The abdomen was again thoroughly irrigated. Small bowel again noted to be somewhat irritated with fecal contaminants and purulence contained on it. No evidence of perforation or bowel compromise at other places. The place where the ostomy was noted, this was done in order to avoid abdominal folding line and further placed slightly more cephalad due to the thickness of the anterior abdominal wall and to allow for adequate length and placement of the colostomy. The Raya was used to grasp the skin. A circular incision was incised in the area for appropriate placement of the colostomy position. Further dissection done down to the anterior fascia. A cruciate incision was made there. This was incised to the peritoneum in a manner to adequately facilitate at least 2 fingers to pass through this colostomy marking site area. The colon was grasped and brought through the wound. The abdomen drain was placed, including a 19-St Helenian Vazquez drain placed in the pelvis and secured with 2-0 nylon. The midline incision was closed using a #1 looped PDS x 2. Subcutaneous tissue was then irrigated and gauri used to close the midline. The colostomy was then fashioned in a Carla type way to sleetmute the colostomy. Two sutures were placed between the fascia and the colon in order to secure this in place at 12 o'clock, 3 o'clock, 6 o'clock, and 9 o'clock positions were done in order to again create a sleetmute of Carla colostomy. A 3-0 Vicryl was used radially in order to secure the colostomy on the skin. Colostomy noted to be pink and viable. A colostomy crossing interdigitated with index finger and noted to be nice and patent. Ostomy appliance in place. A piece of dressing also placed the midline and noted to be a good seal. Sterile dressing was then placed. The patient tolerated the procedure well and there were no intraoperative complications. All lap and instrument counts were correct at the end of the procedure. The patient was to remain intubated taken to ICU, noted to be in guarded position. MD CONCEPCION Lind/avni , 09:39 PM , 09:56 PM
== END 2018-07-02 12:07 | disposition home health service (06) ==
LOC: PHED 08:33 → PHEDA 11:31 → N03 14:25 → N07 06-26 17:59
PROVIDERS: ADMIT Internal Medicine; ATTEND Internal Medicine
PROC: LAPSCPY (ICD-10-PCS; 2018-06-23 17:27)

== ENCOUNTER 2018-08-22 18:48 | Observation (INO) ==
[2018-08-22] MEDS ORDERED: Morphine Sulfate Inj 8 MG/ML Vial IV.PUSH ONE (19:17)
--- NOTE | 2018-08-22 19:27 | ED ---
HPI General Chief complaint: Abdominal Pain Stated complaint: sob/abd pain Time Seen by Provider: 08/22/18 19:17 Source: patient Mode of arrival: ambulatory Limitations: no limitations History of Present Illness HPI narrative: 57yo F with PMH of asthma, HTN presents to the ED with c/o epigastric abdominal pain today. Pt had perforated diverticulitis and had sigmoid colectomy and end colostomy by Dr. Agee on 06/23/18 and had a complication and a seroma drained last week. Said she has been coughing a lot and had asthma exacerbation which caused her abdomen to be in pain. Pain started after coughing. Said she currently does not feel more sob than normal and does not want any treatments as she took them prior to coming. Denies any fever, chest pain, n/v, diarrhea, focal weakness or numbness. Related Data Home Medications Medication Instructions Recorded Confirmed allopurinol 100 mg PO DAILY 06/23/18 08/22/18 atorvastatin 10 mg PO HS 06/23/18 08/22/18 azelastine 1 spray INTRANASAL DAILY 06/23/18 08/22/18 benzonatate 100 mg PO Q8HR PRN 06/23/18 08/22/18 budesonide-formoterol [Symbicort] 2 puff INHALATION BID 06/23/18 08/22/18 cyclobenzaprine 10 mg PO TID PRN 06/23/18 08/22/18 fluticasone 2 spray INTRANASAL DAILY 06/23/18 08/22/18 fluticasone [Flovent HFA] 1 puff INHALATION BID 06/23/18 08/22/18 ipratropium bromide 0.5 mg INHALATION Q4H PRN 06/23/18 08/22/18 losartan 50 mg PO DAILY 06/23/18 08/22/18 methylprednisolone 10 mg PO DAILY 06/23/18 08/22/18 montelukast 10 mg PO QPM 06/23/18 08/22/18 omeprazole 40 mg PO DAILY 06/23/18 08/22/18 pregabalin [Lyrica] 50 mg PO HS 06/23/18 08/22/18 sertraline 50 mg PO HS 06/23/18 08/22/18 tiotropium bromide [Spiriva 2 puff INHALATION DAILY 06/23/18 08/22/18 Respimat] ascorbic acid (vitamin C) [Vitamin 800 mg PO DAILY 06/26/18 08/22/18 C] budesonide 2 ml INHALATION Q12H 07/01/18 08/22/18 calcium carbonate-vitamin D3 1,200 mg PO DAILY 07/01/18 08/22/18 [Calcium 500 + D] loratadine [Claritin] 10 mg PO DAILY 07/01/18 08/22/18 omega [id number]-fish oil [Fish Oil] 2,000 mg PO DAILY 07/01/18 08/22/18 Cuvutru See Label Instructions .ROUTE 08/22/18 08/22/18 .COMPLEX Previous Rx's Medication Instructions Recorded albuterol sulfate 2.5 mg NEB Q2HR NEB PRN ea 07/02/18 amoxicillin-pot clavulanate 1 tab PO BID #14 tab 07/02/18 [Augmentin] hydrocodone-acetaminophen 1 tab PO Q4H PRN #18 tab 07/02/18 Allergies Allergy/AdvReac Type Severity Reaction Status Date / Time chlorhexidine Allergy Severe Skin Verified 08/22/18 18:59 blisters diclofenac Allergy Severe Hives Verified 08/22/18 18:59 tramadol Allergy Severe Hives Verified 08/22/18 18:59 adhesive Allergy Intermediate Rash Verified 08/22/18 18:59 ketorolac Allergy Intermediate Rash Verified 08/22/18 18:59 Review of Systems ROS: all other systems reviewed are negative [facility] Medical History Medical History Diverticulosis (Acute) Hyperlipidemia (Acute) Hypogammaglobulinemia (Acute) Immunodeficiency disorder (Acute) Perforated bowel (Acute) Asthma (Acute) 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) Surgical History Surgical History History of section (Acute) History of colostomy (Acute) History of elbow surgery (Acute) History of rotator cuff surgery (Acute) Status post wrist surgery (Acute) H/O abdominal hysterectomy (Acute) H/O sinus surgery (Acute) History of surgery on arm (Acute) Hx of tonsillectomy (Acute) Family History Family History Other Family history of chronic obstructive pulmonary disease Family history of heart disease Social History Social History Substance History: No History of Abuse Second Hand Smoke Exposure: No Smoking Status: Never smoker Tobacco Type: Cigarettes How Often Do You Have a Drink Containing Alcohol: Never Recent Travel in [facility] within the Last 8 Weeks: No Recent Out of Country Travel within the Last 8 Weeks: No Exam Narrative Exam Narrative: GENERAL: 57yo F in moderate distress. SKIN: Focused skin assessment warm/dry. HEAD: Atraumatic. Normocephalic. EYES: Pupils equal and round. No scleral icterus. No injection or drainage. ENT: No nasal bleeding or discharge. CARDIOVASCULAR: Regular rate and rhythm. No murmur appreciated. RESPIRATORY: No accessory muscle use. Clear to auscultation. Breath sounds equal bilaterally. GASTROINTESTINAL: Abdomen soft, +TTP epigastric region. Colostomy bag in place. No rebound tenderness or guarding. MUSCULOSKELETAL: No obvious deformities. No clubbing. No cyanosis. No edema. NEUROLOGICAL: Awake and alert. No obvious cranial nerve deficits. Motor grossly within normal limits. Normal speech. PSYCHIATRIC: Appropriate mood and affect; insight and judgment normal. Course Initial Documented Vital Signs Temperature 97.9 F 08/22/18 18:53 Pulse Rate 109 H 08/22/18 18:53 Respiratory Rate 16 08/22/18 18:53 Blood Pressure 220/116 H 08/22/18 18:53 Pulse Oximetry 98 08/22/18 18:53 Last Documented Vital Signs Temperature 97.3 F L 08/23/18 16:00 Pulse Rate 80 08/23/18 16:00 Respiratory Rate 18 08/23/18 16:00 Blood Pressure 124/77 08/23/18 16:00 Pulse Oximetry 97 08/23/18 16:00 Medical Decision Making [facility] Narrative Medical decision making narrative: 57yo F with epigastric abdominal pain after coughing today. Pt has had a complicated course of perforated diverticulitis in June. Pt is not wheezing and is not short of breath but has been coughing more. Labs reviewed, no leukocytosis. H/h normal. BUN elevated at 22. BUN/ creatinine ratio is 2 to one. Will give NS IVF. Lipase normal. LFTs normal. Troponin negative. CXR negative. Feel that pt may be coughing from post nasal drip as it is worst with lying down and she has rhinorrhea. BP was initially very elevated but BP improved after morphine. 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 Persistent fluid collection in subcutaneous fat in midline over upper pelvic region. I discussed with general surgeon Dr. Vizcarra who is production statistical clerk and he said that it is very unlikely to be incarcerated if there is no transitional point, vomiting. Pt does have tenderness around the stoma but it is soft. He recommends admission to medicine for observation for cough and pain control. Surgery will consult in the morning. Discussed with Dr. Parson's [employer] Maral and accepted to her service. Medical Screen Exam Complete: Yes Emergency Medical Condition: Yes Differential Diagnosis Differential Diagnosis: Umbilical hernia vs. gastritis vs. obstruction vs. pancreatitis vs. pneumonia Lab Data Result diagrams: 08/23/18 05:10 08/23/18 05:10 Lab Results 08/22/18 08/22/18 08/22/18 Range/Units 19:35 19:35 19:35 CBC w Diff Auto diff final WBC 8.0 (4.0-11.0) th/mm3 RBC 4.22 (4.00-5.30) mil/mm3 Hgb 13.5 (11.6-15.3) gm/dL Hct 39.7 (35.0-46.0) % MCV 94.0 (80.0-100.0) fL MCH 31.9 (27.0-34.0) pg MCHC 33.9 (32.0-36.0) % RDW 14.3 (11.6-17.2) % Plt Count 270 (150-450) th/mm3 MPV 8.4 (7.0-11.0) fL Neut % (Auto) 65.4 (16.0-70.0) % Lymph % (Auto) 28.2 (9.0-44.0) % [place] % (Auto) 5.5 (0.0-8.0) % Eos % (Auto) 0.3 (0.0-4.0) % Baso % (Auto) 0.6 (0.0-2.0) % Neut # (Auto) 5.3 (1.8-7.7) th/mm3 Lymph # (Auto) 2.3 (1.0-4.8) th/mm3 [place] # (Auto) 0.4 (0.0-0.9) th/mm3 Eos # (Auto) 0.0 (0.0-0.4) th/mm3 Baso # (Auto) 0.0 (0.0-0.2) th/mm3 WBC Differential . Differential Comment . Sodium 143 (136-145) meq/L Potassium 3.5 (3.5-5.1) meq/L Chloride 109 H (98-107) meq/L Carbon Dioxide 22.1 (21.0-32.0) meq/L Anion Gap 12 (5-15) meq/L BUN 22 H (7-18) mg/dL Creatinine 0.67 (0.50-1.00) mg/dL Estimated GFR Greater than 89 (>89) mL/min Random Glucose 154 H (74-106) mg/dL Calcium 9.3 (8.5-10.1) mg/dL Total Bilirubin 0.4 (0.2-1.0) mg/dL AST 14 L (15-37) U/L ALT 24 (10-53) U/L Alkaline Phosphatase 82 (45-117) U/L Troponin I Less than 0.02 L (0.02-0.05) ng/mL Total Protein 7.4 (6.4-8.2) g/dL Albumin 3.5 (3.4-5.0) g/dL Lipase 191 (73-393) U/L Urine Color (Yellw/Straw) Urine Clarity (Clear) Urine pH (5.0-8.5) Ur Specific [place] (1.002-1.035) Urine Protein (Neg-Trace) mg/dL Urine Glucose (UA) (Negative) mg/dL Urine Ketones (Negative) mg/dL Urine Occult Blood (Negative) Urine Nitrate (Negative) Urine Bilirubin (Negative) Urine Urobilinogen (Less than 2) mg/dL Ur Leukocyte Esterase (Negative) Urine WBC (0-5) /hpf Ur Squamous Epith Cells (0-5) /hpf Urine Bacteria (None) /hpf Urine Mucus (Occasional) /lpf Micro UA Comment Ur Microscopic Review Urine Culture Comments 08/22/18 08/23/18 08/23/18 Range/Units 21:25 05:10 05:10 CBC w Diff Auto diff final WBC 8.7 (4.0-11.0) th/mm3 RBC 3.97 L (4.00-5.30) mil/mm3 Hgb 12.6 (11.6-15.3) gm/dL Hct 36.7 (35.0-46.0) % MCV 92.5 (80.0-100.0) fL MCH 31.8 (27.0-34.0) pg MCHC 34.4 (32.0-36.0) % RDW 14.9 (11.6-17.2) % Plt Count 249 (150-450) th/mm3 MPV 9.2 (7.0-11.0) fL Neut % (Auto) 58.4 (16.0-70.0) % Lymph % (Auto) 31.0 (9.0-44.0) % [place] % (Auto) 9.2 H (0.0-8.0) % Eos % (Auto) 1.0 (0.0-4.0) % Baso % (Auto) 0.4 (0.0-2.0) % Neut # (Auto) 5.1 (1.8-7.7) th/mm3 Lymph # (Auto) 2.7 (1.0-4.8) th/mm3 [place] # (Auto) 0.8 (0.0-0.9) th/mm3 Eos # (Auto) 0.1 (0.0-0.4) th/mm3 Baso # (Auto) 0.0 (0.0-0.2) th/mm3 WBC Differential . Differential Comment . Sodium 144 (136-145) meq/L Potassium 4.1 (3.5-5.1) meq/L Chloride 108 H (98-107) meq/L Carbon Dioxide 27.3 (21.0-32.0) meq/L Anion Gap 9 (5-15) meq/L BUN 20 H (7-18) mg/dL Creatinine 0.63 (0.50-1.00) mg/dL Estimated GFR Greater than 89 (>89) mL/min Random Glucose 93 (74-106) mg/dL Calcium 9.4 (8.5-10.1) mg/dL Total Bilirubin (0.2-1.0) mg/dL AST (15-37) U/L ALT (10-53) U/L Alkaline Phosphatase (45-117) U/L Troponin I (0.02-0.05) ng/mL Total Protein (6.4-8.2) g/dL Albumin (3.4-5.0) g/dL Lipase (73-393) U/L Urine Color Yellow (Yellw/Straw) Urine Clarity Clear (Clear) Urine pH 6.0 (5.0-8.5) Ur Specific [place] 1.025 (1.002-1.035) Urine Protein Negative (Neg-Trace) mg/dL Urine Glucose (UA) Negative (Negative) mg/dL Urine Ketones Negative (Negative) mg/dL Urine Occult Blood Negative (Negative) Urine Nitrate Negative (Negative) Urine Bilirubin Negative (Negative) Urine Urobilinogen 0.2 (Less than 2) mg/dL Ur Leukocyte Esterase Negative (Negative) Urine WBC 0-5 (0-5) /hpf Ur Squamous Epith Cells 0-5 (0-5) /hpf Urine Bacteria Few H (None) /hpf Urine Mucus Few H (Occasional) /lpf Micro UA Comment Culture not ind Ur Microscopic Review Microscopic reviewed Urine Culture Comments Culture not ind Imaging Data Radiologist's impression: Abdomen/Pelvis CT 08/22/18 19:17 CONCLUSION: 1. 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 2. Persistent fluid collection in the subcutaneous fat in the midline over the upper pelvic region. Chest X-Ray 08/22/18 19:17 CONCLUSION: No acute cardiopulmonary process. ECG Data EKG Prior to Arrival: No Attestation: I personally reviewed and interpreted this ECG as follows: Interpretation: NSR 95bpm. W[place] interval 145ms. Normal axis. No significant ST elevation or depression. Discharge Plan Discharge Disposition Patient Disposition: 30 Still Patient Physicians Team ED Provider: Khushi Lacy Primary Care Provider: Martin Peguero Attending Provider: Dorian Goldsmith Other Providers: Nehemias Vizcarra Status ED Status: Left Department Discharge Information Discharge Date/Time: 08/23/18 01:43
--- NOTE | 2018-08-22 19:43 | XR ---
EXAM DATE: 08/22/2018 7:17 PM EDT AGE/SEX: 57 years / Female INDICATIONS: Shortness of breath and cough. CLINICAL DATA: This is the patient's initial encounter. Patient reports that signs and symptoms have been present for 2 days and indicates a pain score of 0/10. MEDICAL/SURGICAL HISTORY: Asthma. . Colon. COMPARISON: [facility] – [place], [place], CHEST 1V SINGLE AP, 06/26/2018. . FINDINGS: A single AP view of the chest demonstrates the lungs to be symmetrically aerated without evidence of mass, infiltrate or effusion. The cardiomediastinal contours are unremarkable. Osseous structures a re intact. There is a stable small 4 mm calcific or metallic density projecting over the right gleno id region. CONCLUSION: No acute cardiopulmonary process. Electronically signed by: Elvin Baxter MD 08/22/2018 7:42 PM EDT
[2018-08-22 19:44] LABS: Baso % (Auto) 0.6 % (0.0-2.0); Eos % (Auto) 0.3 % (0.0-4.0); Hematocrit 39.7 % (35.0-46.0); Hemoglobin 13.5 gm/dL (11.6-15.3); Lymph # (Auto) 2.3 th/mm3 (1.0-4.8); Lymph % (Auto) 28.2 % (9.0-44.0); Mean Corpuscular HGB Conc 33.9 % (32.0-36.0); Mean Corpuscular Hemoglobin 31.9 pg (27.0-34.0); Mean Platelet Volume 8.4 fL (7.0-11.0); Mono # (Auto) 0.4 th/mm3 (0.0-0.9); Mono % (Auto) 5.5 % (0.0-8.0); Neut # (Auto) 5.3 th/mm3 (1.8-7.7); Neut % (Auto) 65.4 % (16.0-70.0); Platelet Count 270 th/mm3 (150-450); Red Blood Count 4.22 mil/mm3 (4.00-5.30); Red Cell Distribution Width 14.3 % (11.6-17.2)
[2018-08-22 20:22] LABS: Chloride 109 meq/L (98-107); Potassium 3.5 meq/L (3.5-5.1); Sodium 143 meq/L (136-145)
[2018-08-22 20:26] LABS: Calcium 9.3 mg/dL (8.5-10.1)
[2018-08-22 20:27] LABS: Albumin 3.5 g/dL (3.4-5.0); Anion Gap 12 meq/L (5-15); Blood Urea Nitrogen 22 mg/dL (7-18); Carbon Dioxide 22.1 meq/L (21.0-32.0); Glucose,Random 154 mg/dL (74-106); Lipase 191 U/L (73-393)
[2018-08-22 20:29] LABS: Alanine Aminotransferase 24 U/L (10-53)
[2018-08-22 20:30] LABS: Aspartate Aminotransferase 14 U/L (15-37); Glomerular Filtration Rate Greater Than 89 mL/min (>89)
[2018-08-22 20:31] LABS: Total Protein 7.4 g/dL (6.4-8.2)
[2018-08-22 20:32] LABS: Alkaline Phosphatase 82 U/L (45-117)
[2018-08-22] MEDS ORDERED: guaiFENesin/Dextromethorphan 200 MG/20 MG 10 ML UDC PO ONE (20:55)
[2018-08-22 21:32] LABS: Bilirubin,Urine Negative (Negative); Clarity,Urine Clear (Clear); Color,Urine Yellow (Yellw/Straw); Glucose,Urine (UA) Negative (Negative); Leukocyte Esterase,Urine Negative (Negative); Nitrite,Urine Negative (Negative); Specific Gravity,Urine 1.025 (1.002-1.035); Urobilinogen,Urine 0.2 mg/dL (Less than 2)
[2018-08-22 21:40] LABS: Squamous Epithelial Cell,Urine 0-5 /hpf (0-5); WBC,Urine 0-5 /hpf (0-5)
[2018-08-22 21:41] LABS: Bacteria,Urine Few /hpf; Mucus,Urine Few /lpf (Occasional)
[2018-08-22] MEDS ORDERED: Sodium Chlor 0.9% Inj 500 ML IV.SIG SCH (22:00)
[2018-08-22] MEDS ORDERED: Morphine Inj 4 MG/ML Vial IV.PUSH ONE (22:07)
--- NOTE | 2018-08-22 22:07 | CT ---
EXAM DATE: 08/22/2018 9:23 PM EDT AGE/SEX: 57 years / Female INDICATIONS: Shortness of breath. CLINICAL DATA: This is the patient's initial encounter. Patient reports that signs and symptoms have been present for 1 day and indicates a pain score of 9/10. MEDICAL/SURGICAL HISTORY: Hypertension. Asthma. . Hysterectomy. Sinus. Tonsillectomy. section. Recent colon resection. ORAL CONTRAST: No oral contrast ingested. RADIATION DOSE: 21.37 CTDI (mGy) COMPARISON: [facility], CT ABDOMEN AND PELVIS W AND W/O CONTRAST, 07/26/2018. . TECHNIQUE: Multiple contiguous axial images were obtained through the abdomen and pelvis following b olus infusion of 90 ml Omnipaque 350 (iohexol) nonionic water-soluble contrast as a single exam dos e. No oral contrast ingested. Using automated exposure control and adjustment of the mA and/or kV ac cording to patient size, radiation dose was kept as low as reasonably achievable to obtain optimal di agnostic quality images. DICOM format image data is available electronically for review and comparis on. FINDINGS: Lower Lungs: The visualized lower lungs are clear. Liver: The liver has a homogeneous density without space-occupying lesion. There is no dilation of th e biliary tree. Spleen: Homogeneous density without enlargement. Pancreas: Unremarkable without mass or calcification. Kidneys: Normal in size and shape. No evidence of mass or hydronephrosis. Adrenal Glands: Unremarkable. Aorta: The aorta and proximal iliac vessels are grossly unremarkable without aneurysmal dilation. Bowel/Mesentery: The patient is status post colonic surgery. There appears to be a diverting colosto my in the left lower quadrant. There is a hernia seen adjacent to the ostomy site in the left lower q uadrant containing segments of small bowel. No distention of the bowel seen to suggest obstruction. T here is a bowel anastomosis suture region seen at the mid sigmoid colon. Abdominal Wall: Again noted is the colostomy site in the left lower quadrant with the peristomal her aguila containing mesenteric fat and small bowel. There continues to be fluid in the anterior abdominal wall midline below the umbilicus. This appears unchanged. This likely represents a seroma given the l ack of change. This fluid collection measures 4.3 cm in AP dimension, 2.5 cm in transverse dimension and extends over a 6.9 cm length. Retroperitoneum: No evidence of adenopathy in the retrocrural, para-aortic, or deep pelvic regions. Bladder: Contours are smooth. Reproductive Organs: No abnormal masses or calcifications seen. Inguinal: The inguinal region is unremarkable without evidence of adenopathy. Bony Structures: Degenerative change of the lower lumbar spine. CONCLUSION: 1. 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 2. Persistent fluid collection in the subcutaneous fat in the midline over the upper pelvic region. Electronically signed by: Elvin Baxter MD 08/22/2018 10:05 PM EDT
[2018-08-23] MEDS: Morphine Sulfate Inj 2 MG/ML Vial IV.PUSH PRN ×3 (02:26→11:53)
[2018-08-23 06:51] LABS: Chloride 108 meq/L (98-107); Potassium 4.1 meq/L (3.5-5.1); Sodium 144 meq/L (136-145)
[2018-08-23 06:53] LABS: Baso % (Auto) 0.4 % (0.0-2.0); Eos # (Auto) 0.1 th/mm3 (0.0-0.4); Hematocrit 36.7 % (35.0-46.0); Hemoglobin 12.6 gm/dL (11.6-15.3); Lymph # (Auto) 2.7 th/mm3 (1.0-4.8); Mean Corpuscular HGB Conc 34.4 % (32.0-36.0); Mean Corpuscular Hemoglobin 31.8 pg (27.0-34.0); Mean Corpuscular Volume 92.5 fL (80.0-100.0); Mean Platelet Volume 9.2 fL (7.0-11.0); Mono # (Auto) 0.8 th/mm3 (0.0-0.9); Mono % (Auto) 9.2 % (0.0-8.0); Neut # (Auto) 5.1 th/mm3 (1.8-7.7); Neut % (Auto) 58.4 % (16.0-70.0); Platelet Count 249 th/mm3 (150-450); Red Blood Count 3.97 mil/mm3 (4.00-5.30); Red Cell Distribution Width 14.9 % (11.6-17.2); White Blood Count 8.7 th/mm3 (4.0-11.0)
[2018-08-23 06:56] LABS: Anion Gap 9 meq/L (5-15); Blood Urea Nitrogen 20 mg/dL (7-18); Calcium 9.4 mg/dL (8.5-10.1); Carbon Dioxide 27.3 meq/L (21.0-32.0); Glucose,Random 93 mg/dL (74-106)
[2018-08-23 07:00] LABS: Glomerular Filtration Rate Greater Than 89 mL/min (>89)
--- NOTE | 2018-08-23 13:02 | P.HP ---
History of Present Illness Primary Care Physician: Martin Peguero Chief Complaint: Abdominal pain History of Present Illness: 57-year-old female with recent history of multiple abdominal issues. Approximately 2 months ago patient did have perforated bowel which she underwent colectomy with colostomy placement. She has been following up with the general surgeon Dr. Agee. Patient did develop a seroma which was drained in the outpatient setting. Patient states that she continued to have abdominal pain ever since she had the surgery and is not improved. Patient states that she does have underlying lung disease with restrictive airway disease, asthma in which she is followed by Dr. Orta on a regular basis. Patient has had a chronic cough in which she states that whenever she coughs it causes her abdominal pain get worse. On Sunday she coughed and felt a pop in her abdomen and since then she indicates that she has been having worsening pain. She called her surgeon who scheduled her to have a ultrasound done early next week. However patient states that the pain was so severe she came to the emergency department for evaluation. Patient had workup done. Laboratory studies all are unremarkable. CT the abdomen shows a left colostomy with parastomal hernia containing mesenteric fat and small bowel. There is no indication of any obstruction or incarcerated hernia. ER physician contacted general surgery who recommended that the patient be observed in the hospital under the hospitalist with general surgery consult. - Diagnosis (1) Abdominal pain Review of Systems All other systems reviewed negative except as stated in HPI Gastrointestinal: Reports abdominal pain 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 - Medical History Medical History: Medical History (Last Updated 08/23/18 @ 13:45 by KARINA Guerra) Diverticulosis Hyperlipidemia Hypogammaglobulinemia Immunodeficiency disorder Perforated bowel Asthma Hypertension after donor nephrectomy requiring medication - Surgical History Surgical History: Surgical History (Last Updated 08/23/18 @ 13:44 by KARINA Guerra) History of section History of colostomy History of elbow surgery History of rotator cuff surgery Status post wrist surgery H/O abdominal hysterectomy H/O sinus surgery History of surgery on arm Hx of tonsillectomy - Family History Family History: Family History (Last Updated 08/23/18 @ 13:46 by KARINA Guerra) Other Family history of chronic obstructive pulmonary disease Family history of heart disease - Tobacco History Second Hand Smoke Exposure: No Tobacco Use In Past 30 Days: No Smoking Status: Never smoker Tobacco Type: Cigarettes - Alcohol History How Often Do You Have a Drink Containing Alcohol: Never - Substance Use History Substance History: No History of Abuse - Travel History Recent Travel in the [place] Within the Last 8 Weeks: No Recent Travel Out of the Country Within the Last 8 Weeks: No - Immunization History Tetanus Immunization: Unsure Medications and Allergies Active Medications: Active Medications Sodium Chloride (Ns Inj) 500 mls @ 0 mls/hr IV.SIG BOLUS SHANDRA Last Infusion: 08/22/18 23:07 Dose: Infused Morphine Sulfate (Morphine Inj) 2 mg IV.PUSH Q3H PRN PRN Reason: pain 1 to 10 Last Admin: 08/23/18 11:53 Dose: 2 mg Ondansetron HCl (Zofran Inj) 4 mg IV.PUSH Q6H PRN PRN Reason: NAUSEA OR VOMITING Sodium Chloride (Ns Flush) 2 ml IV.FLUSH PRN PRN PRN Reason: FLUSH AFTER USING IV ACCESS Last Admin: 08/23/18 07:40 Dose: 2 ml Allergies Allergy/AdvReac Type Severity Reaction Status Date / Time chlorhexidine Allergy Severe Skin Verified 08/22/18 18:59 blisters diclofenac Allergy Severe Hives Verified 08/22/18 18:59 tramadol Allergy Severe Hives Verified 08/22/18 18:59 adhesive Allergy Intermediate Rash Verified 08/22/18 18:59 ketorolac Allergy Intermediate Rash Verified 08/22/18 18:59 Home Medications Medication Instructions Recorded Confirmed Type allopurinol 100 mg PO DAILY 06/23/18 08/22/18 History atorvastatin 10 mg PO HS 06/23/18 08/22/18 History azelastine 1 spray INTRANASAL DAILY 06/23/18 08/22/18 History benzonatate 100 mg PO Q8HR PRN 06/23/18 08/22/18 History budesonide-formoterol [Symbicort] 2 puff INHALATION BID 06/23/18 08/22/18 History cyclobenzaprine 10 mg PO TID PRN 06/23/18 08/22/18 History fluticasone 2 spray INTRANASAL DAILY 06/23/18 08/22/18 History fluticasone [Flovent HFA] 1 puff INHALATION BID 06/23/18 08/22/18 History ipratropium bromide 0.5 mg INHALATION Q4H PRN 06/23/18 08/22/18 History losartan 50 mg PO DAILY 06/23/18 08/22/18 History methylprednisolone 10 mg PO DAILY 06/23/18 08/22/18 History montelukast 10 mg PO QPM 06/23/18 08/22/18 History omeprazole 40 mg PO DAILY 06/23/18 08/22/18 History pregabalin [Lyrica] 50 mg PO HS 06/23/18 08/22/18 History sertraline 50 mg PO HS 06/23/18 08/22/18 History tiotropium bromide [Spiriva 2 puff INHALATION DAILY 06/23/18 08/22/18 History Respimat] ascorbic acid (vitamin C) [Vitamin 800 mg PO DAILY 06/26/18 08/22/18 History C] budesonide 2 ml INHALATION Q12H 07/01/18 08/22/18 History calcium carbonate-vitamin D3 1,200 mg PO DAILY 07/01/18 08/22/18 History [Calcium 500 + D] loratadine [Claritin] 10 mg PO DAILY 07/01/18 08/22/18 History omega 2-uvd-hhm-fish oil [Fish Oil] 2,000 mg PO DAILY 07/01/18 08/22/18 History Cuvutru See Label Instructions .ROUTE 08/22/18 08/22/18 History .COMPLEX Exam Vital signs: Vital Signs 08/22/18 18:53 08/22/18 19:42 08/22/18 20:01 Temperature 97.9 F Pulse Rate 109 H 87 Respiratory Rate 16 18 18 Blood Pressure 220/116 H 166/90 H Pulse Oximetry 98 98 08/22/18 20:30 08/22/18 21:45 08/22/18 22:57 Temperature Pulse Rate 88 99 H Respiratory Rate 18 16 16 Blood Pressure 172/89 H 182/89 H Pulse Oximetry 99 97 08/22/18 23:00 08/23/18 01:56 08/23/18 04:00 Temperature 96.3 F L 97.2 F L Pulse Rate 78 81 67 Respiratory Rate 16 22 20 Blood Pressure 170/90 H 169/105 H 104/73 Pulse Oximetry 100 96 08/23/18 08:00 08/23/18 12:00 Temperature 97.1 F L 98.1 F Pulse Rate 70 72 Respiratory Rate 16 18 Blood Pressure 130/80 141/83 H Pulse Oximetry 97 97 Intake & Output 08/22/18 08/23/18 08/23/18 18:59 06:59 18:59 Intake Total 500 / 500 Balance 500 / 500 Weight 104.7 kg 105.1 kg Intake: IV 500 / 500 NS Inj 500 ML @ Wide Open IV. 500 / 500 SIG BOLUS HSANDRA Rx#:[id number] Oral 0 / 0 Other: # Voids 2 Date of Last Bowel Movement 08/23/18 Weight On Admission 99.2 kg Narrative: GENERAL: Well-developed, well-nourished, in no acute distress. alert and orientated HEENT: Head is normocephalic without any lesions or masses noted. Facial features are symmetric. Eyes: Pupils equal round reactive to light. Extraocular muscles are intact. Conjunctivae were clear. Oropharyngeal: Pharynx without any erythema edema. Tongue is midline without deviation. Buccal mucosa is moist without any masses or lesions NECK: Supple without any masses. Trachea midline no deviation. No JVD, no bruits are appreciated CARDIAC: Regular rhythm, regular rate. S1/S2 are heard. No murmurs gallops or rubs. LUNGS: Clear to auscultation bilaterally. No wheeze, rhonchi or rales. No use of accessory muscles on inspiration or expiration. ABDOMEN: Soft, nontender. Nondistended. Bowel sounds heard in all 4 quadrants. No organomegaly or masses. Negative rebound, negative guarding. Patient colostomy is noted. Patient very antalgic when moving around in bed. Unable to do full abdominal exam because she appeared to be subjectively painful on even light touch. EXTREMITIES: No edema, pulses are equal bilaterally. No cyanosis or clubbing NEUROLOGY: Mood and affect appear appropriate. Cranial nerves II through XII grossly intact. Muscle strength 5/5 in upper and lower extremities bilaterally. Deep tendon reflexes are 2+ in upper and lower extremities bilaterally. Results - Labs CBC & Chem 7: 08/23/18 05:10 08/23/18 05:10 Labs: Laboratory Results - last 24 hr 08/22/18 08/22/18 08/22/18 19:35 19:35 19:35 CBC w Diff Auto diff final WBC 8.0 RBC 4.22 Hgb 13.5 Hct 39.7 MCV 94.0 MCH 31.9 MCHC 33.9 RDW 14.3 Plt Count 270 MPV 8.4 Neut % (Auto) 65.4 Lymph % (Auto) 28.2 [place] % (Auto) 5.5 Eos % (Auto) 0.3 Baso % (Auto) 0.6 Neut # (Auto) 5.3 Lymph # (Auto) 2.3 [place] # (Auto) 0.4 Eos # (Auto) 0.0 Baso # (Auto) 0.0 WBC Differential . Differential Comment . Sodium 143 Potassium 3.5 Chloride 109 H Carbon Dioxide 22.1 Anion Gap 12 BUN 22 H Creatinine 0.67 Estimated GFR Greater than 89 Random Glucose 154 H Calcium 9.3 Total Bilirubin 0.4 AST 14 L ALT 24 Alkaline Phosphatase 82 Troponin I Less than 0.02 L Total Protein 7.4 Albumin 3.5 Lipase 191 Urine Color Urine Clarity Urine pH Ur Specific [place] Urine Protein Urine Glucose (UA) Urine Ketones Urine Occult Blood Urine Nitrate Urine Bilirubin Urine Urobilinogen Ur Leukocyte Esterase Urine WBC Ur Squamous Epith Cells Urine Bacteria Urine Mucus Micro UA Comment Ur Microscopic Review Urine Culture Comments 08/22/18 08/23/18 08/23/18 21:25 05:10 05:10 CBC w Diff Auto diff final WBC 8.7 RBC 3.97 L Hgb 12.6 Hct 36.7 MCV 92.5 MCH 31.8 MCHC 34.4 RDW 14.9 Plt Count 249 MPV 9.2 Neut % (Auto) 58.4 Lymph % (Auto) 31.0 [place] % (Auto) 9.2 H Eos % (Auto) 1.0 Baso % (Auto) 0.4 Neut # (Auto) 5.1 Lymph # (Auto) 2.7 [place] # (Auto) 0.8 Eos # (Auto) 0.1 Baso # (Auto) 0.0 WBC Differential . Differential Comment . Sodium 144 Potassium 4.1 Chloride 108 H Carbon Dioxide 27.3 Anion Gap 9 BUN 20 H Creatinine 0.63 Estimated GFR Greater than 89 Random Glucose 93 Calcium 9.4 Total Bilirubin AST ALT Alkaline Phosphatase Troponin I Total Protein Albumin Lipase Urine Color Yellow Urine Clarity Clear Urine pH 6.0 Ur Specific [place] 1.025 Urine Protein Negative Urine Glucose (UA) Negative Urine Ketones Negative Urine Occult Blood Negative Urine Nitrate Negative Urine Bilirubin Negative Urine Urobilinogen 0.2 Ur Leukocyte Esterase Negative Urine WBC 0-5 Ur Squamous Epith Cells 0-5 Urine Bacteria Few H Urine Mucus Few H Micro UA Comment Culture not ind Ur Microscopic Review Microscopic reviewed Urine Culture Comments Culture not ind - Imaging Impressions Abdomen/Pelvis CT 08/22/18 19:17 CONCLUSION: 1. 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 2. Persistent fluid collection in the subcutaneous fat in the midline over the upper pelvic region. Chest X-Ray 08/22/18 19:17 CONCLUSION: No acute cardiopulmonary process. Caprini VTE Risk Assessment Caprini VTE Risk Assessment: Moderate/High Risk (score >= 2) Caprini Risk Assessment Model: Point Value = 1 Point Value = 2 Point Value = 3 Point Value = 5 Age 41-60 Minor surgery BMI > 25 kg/m2 Swollen legs Varicose veins or History of unexplained or recurrent spontaneous Oral contraceptives or hormone replacement Sepsis (< 1 month) Serious lung disease, including pneumonia (< 1 month) Abnormal pulmonary function Acute myocardial infarction Congestive heart failure (< 1 month) History of inflammatory bowel disease Medical patient at bed rest Age 61-74 Arthroscopic surgery Major open surgery (> 45 min) Laparoscopic surgery (> 45 min) Malignancy Confined to bed (> 72 hours) Immobilizing plaster cast Central venous access Age >= 75 History of VTE Family history of VTE Factor V Leiden Prothrombin [id number] Lupus anticoagulant Anticardiolipin antibodies Elevated serum homocysteine Heparin-induced thrombocytopenia Other congenital or acquired thrombophilia Stroke (< 1 month) Elective arthroplasty Hip, pelvis, or leg fracture Acute spinal cord injury (< 1 month) Prophylaxis Regimen: Total Risk Factor Score Risk Level Prophylaxis Regimen 0-1 Low Early ambulation 2 Moderate Order ONE of the following: *Sequential Compression Device (SCD) *Heparin 5000 units SQ BID 3-4 Higher Order ONE of the following medications: *Heparin 5000 units SQ TID *Enoxaparin/Lovenox 40 mg SQ daily (WT < 150 kg, CrCl > 30 mL/min) *Enoxaparin/Lovenox 30 mg SQ daily (WT < 150 kg, CrCl > 10-29 mL/min) *Enoxaparin/Lovenox 30 mg SQ BID (WT < 150 kg, CrCl > 30 mL/min) AND/OR *Sequential Compression Device (SCD) 5 or more Highest Order ONE of the following medications: *Heparin 5000 units SQ TID (Preferred with Epidurals) *Enoxaparin/Lovenox 40 mg SQ daily (WT < 150 kg, CrCl > 30 mL/min) *Enoxaparin/Lovenox 30 mg SQ daily (WT < 150 kg, CrCl > 10-29 mL/min) *Enoxaparin/Lovenox 30 mg SQ BID (WT < 150 kg, CrCl > 30 mL/min) AND *Sequential Compression Device (SCD) Assessment and Plan - Assessment (1) Abdominal pain Code(s): R10.9 - Unspecified abdominal pain Status: Acute - Plan Abdominal pain -Had rather long discussion with general surgery today. Apparently patient has had chronic abdominal pain since she had a surgery 2 months ago. Does contact their office on a regular basis for pain medication. Apparently been having difficult time with pain management in outpatient setting -CT scan showed parastomal hernia with mesenteric fat and small bowel. There is no signs or indications of any obstruction or incarceration -General surgery recommended supportive care with advancing diet, pain control, nonoperative treatments Asthma -Continue oxygen supplementation maintain O2 sat greater than 92% -Duo nebs as needed -Continue home medications Hypertension, lipidemia, immunodeficient disorder -Continue home medications DVT prevention -Sequential compression devices Discussed Condition With: Patient, at bedside, nursing staff, [place] Discharge Planning: Discharge planning after pain management complete by general surgery
--- NOTE | 2018-08-23 13:31 | P.CONGS ---
[facility] Gen Surgery Consult Note Consult date: 08/23/18 Reason for consult: abdominal pain Requesting physician: Rachna Nguyen Narrative: This is a 57 year old female with a past medical history asthma and a surgical history significant for perforated diverticulitis in June of 2018 and taken to the OR by Dr. Agee for exploratory laparotomy for sigmoid resection and colostomy. The patient was seen in the office on Sunday and had a seroma drained. She has been slowly recovering from the operation over the past several weeks. Yesterday evening the patient had an asthma attack and forcefully coughed. She states she immediately heard a "pop" and felt a "budge " around her stoma. She denies any nausea and vomiting. A CT abdomen/pelvis was obtained which shows a parastomal hernia with mesenteric fat. The patient has no signs of obstruction. A General Surgery consultation has been requested. Review of Systems All other systems reviewed negative except as stated in [facility] PMF - History History Provided By: Patient - Medical History Medical History: Medical History (Last Reviewed 08/23/18 @ 13:26 by CECY Khan) Asthma Hypertension after donor nephrectomy requiring medication - Surgical History Surgical History: Surgical History (Last Reviewed 08/23/18 @ 13:26 by CECY Khan) H/O abdominal hysterectomy H/O sinus surgery History of surgery on arm Hx of tonsillectomy Previous section - Family History Family History: Family History (Last Updated 08/23/18 @ 13:46 by KARINA Guerra) Other Family history of chronic obstructive pulmonary disease Family history of heart disease - Tobacco History Second Hand Smoke Exposure: No Tobacco Use In Past 30 Days: No Smoking Status: Never smoker Tobacco Type: Cigarettes - Alcohol History How Often Do You Have a Drink Containing Alcohol: Never - Substance Use History Substance History: No History of Abuse - Travel History Recent Travel in the [place] Within the Last 8 Weeks: No Recent Travel Out of the Country Within the Last 8 Weeks: No - Immunization History Tetanus Immunization: Unsure Medications and Allergies Allergies Allergy/AdvReac Type Severity Reaction Status Date / Time chlorhexidine Allergy Severe Skin Verified 08/22/18 18:59 blisters diclofenac Allergy Severe Hives Verified 08/22/18 18:59 tramadol Allergy Severe Hives Verified 08/22/18 18:59 adhesive Allergy Intermediate Rash Verified 08/22/18 18:59 ketorolac Allergy Intermediate Rash Verified 08/22/18 18:59 Home Medications Medication Instructions Recorded Confirmed Type allopurinol 100 mg PO DAILY 06/23/18 08/22/18 History atorvastatin 10 mg PO HS 06/23/18 08/22/18 History azelastine 1 spray INTRANASAL DAILY 06/23/18 08/22/18 History benzonatate 100 mg PO Q8HR PRN 06/23/18 08/22/18 History budesonide-formoterol [Symbicort] 2 puff INHALATION BID 06/23/18 08/22/18 History cyclobenzaprine 10 mg PO TID PRN 06/23/18 08/22/18 History fluticasone 2 spray INTRANASAL DAILY 06/23/18 08/22/18 History fluticasone [Flovent HFA] 1 puff INHALATION BID 06/23/18 08/22/18 History ipratropium bromide 0.5 mg INHALATION Q4H PRN 06/23/18 08/22/18 History losartan 50 mg PO DAILY 06/23/18 08/22/18 History methylprednisolone 10 mg PO DAILY 06/23/18 08/22/18 History montelukast 10 mg PO QPM 06/23/18 08/22/18 History omeprazole 40 mg PO DAILY 06/23/18 08/22/18 History pregabalin [Lyrica] 50 mg PO HS 06/23/18 08/22/18 History sertraline 50 mg PO HS 06/23/18 08/22/18 History tiotropium bromide [Spiriva 2 puff INHALATION DAILY 06/23/18 08/22/18 History Respimat] ascorbic acid (vitamin C) [Vitamin 800 mg PO DAILY 06/26/18 08/22/18 History C] budesonide 2 ml INHALATION Q12H 07/01/18 08/22/18 History calcium carbonate-vitamin D3 1,200 mg PO DAILY 07/01/18 08/22/18 History [Calcium 500 + D] loratadine [Claritin] 10 mg PO DAILY 07/01/18 08/22/18 History omega 2-iuh-irn-fish oil [Fish Oil] 2,000 mg PO DAILY 07/01/18 08/22/18 History Cuvutru See Label Instructions .ROUTE 08/22/18 08/22/18 History .COMPLEX Active Medications: Active Medications Sodium Chloride (Ns Inj) 500 mls @ 0 mls/hr IV.SIG BOLUS SHANDRA Last Infusion: 08/22/18 23:07 Dose: Infused Morphine Sulfate (Morphine Inj) 2 mg IV.PUSH Q3H PRN PRN Reason: pain 1 to 10 Last Admin: 08/23/18 11:53 Dose: 2 mg Ondansetron HCl (Zofran Inj) 4 mg IV.PUSH Q6H PRN PRN Reason: NAUSEA OR VOMITING Sodium Chloride (Ns Flush) 2 ml IV.FLUSH PRN PRN PRN Reason: FLUSH AFTER USING IV ACCESS Last Admin: 08/23/18 07:40 Dose: 2 ml Exam Vital signs: Vital Signs 08/22/18 18:53 08/22/18 19:42 08/22/18 20:01 Temperature 97.9 F Pulse Rate 109 H 87 Respiratory Rate 16 18 18 Blood Pressure 220/116 H 166/90 H Pulse Oximetry 98 98 08/22/18 20:30 08/22/18 21:45 08/22/18 22:57 Temperature Pulse Rate 88 99 H Respiratory Rate 18 16 16 Blood Pressure 172/89 H 182/89 H Pulse Oximetry 99 97 08/22/18 23:00 08/23/18 01:56 08/23/18 04:00 Temperature 96.3 F L 97.2 F L Pulse Rate 78 81 67 Respiratory Rate 16 22 20 Blood Pressure 170/90 H 169/105 H 104/73 Pulse Oximetry 100 96 08/23/18 08:00 08/23/18 12:00 Temperature 97.1 F L 98.1 F Pulse Rate 70 72 Respiratory Rate 16 18 Blood Pressure 130/80 141/83 H Pulse Oximetry 97 97 Intake & Output 08/22/18 08/23/18 08/23/18 18:59 06:59 18:59 Intake Total 500 / 500 Balance 500 / 500 Weight 104.7 kg 105.1 kg Intake: IV 500 / 500 NS Inj 500 ML @ Wide Open IV. 500 / 500 SIG BOLUS SHANDRA Rx#:[id number] Oral 0 / 0 Other: # Voids 2 Date of Last Bowel Movement 08/23/18 Weight On Admission 99.2 kg Narrative: GENERAL: 57 year old female quite emotional on exam resting in bed. SKIN: Warm and dry. HEAD: Atraumatic. Normocephalic. EYES: Pupils equal and round. No scleral icterus. No injection or drainage. ENT: No nasal bleeding or discharge. Mucous membranes pink and moist. NECK: Trachea midline. CARDIOVASCULAR: Regular rate and rhythm. RESPIRATORY: No accessory muscle use. Clear to auscultation. Breath sounds equal bilaterally. GASTROINTESTINAL: Abdomen soft, nondistended. She is tender around the stoma. I cannot appreciate any hernia. She does have a small area of irritation from the prior wafer. MUSCULOSKELETAL: Extremities without clubbing, cyanosis, or edema. No obvious deformities. NEUROLOGICAL: Awake and alert. No obvious cranial nerve deficits. Motor grossly within normal limits. Five out of 5 muscle strength in the arms and legs. Normal speech. PSYCHIATRIC: Appropriate mood and affect; insight and judgment normal. Emotional. Results - Labs 08/23/18 05:10 08/23/18 05:10 Laboratory Results - last 24 hr 08/22/18 08/22/18 08/22/18 19:35 19:35 19:35 CBC w Diff Auto diff final WBC 8.0 RBC 4.22 Hgb 13.5 Hct 39.7 MCV 94.0 MCH 31.9 MCHC 33.9 RDW 14.3 Plt Count 270 MPV 8.4 Neut % (Auto) 65.4 Lymph % (Auto) 28.2 [place] % (Auto) 5.5 Eos % (Auto) 0.3 Baso % (Auto) 0.6 Neut # (Auto) 5.3 Lymph # (Auto) 2.3 [place] # (Auto) 0.4 Eos # (Auto) 0.0 Baso # (Auto) 0.0 WBC Differential . Differential Comment . Sodium 143 Potassium 3.5 Chloride 109 H Carbon Dioxide 22.1 Anion Gap 12 BUN 22 H Creatinine 0.67 Estimated GFR Greater than 89 Random Glucose 154 H Calcium 9.3 Total Bilirubin 0.4 AST 14 L ALT 24 Alkaline Phosphatase 82 Troponin I Less than 0.02 L Total Protein 7.4 Albumin 3.5 Lipase 191 Urine Color Urine Clarity Urine pH Ur Specific [place] Urine Protein Urine Glucose (UA) Urine Ketones Urine Occult Blood Urine Nitrate Urine Bilirubin Urine Urobilinogen Ur Leukocyte Esterase Urine WBC Ur Squamous Epith Cells Urine Bacteria Urine Mucus Micro UA Comment Ur Microscopic Review Urine Culture Comments 08/22/18 08/23/18 08/23/18 21:25 05:10 05:10 CBC w Diff Auto diff final WBC 8.7 RBC 3.97 L Hgb 12.6 Hct 36.7 MCV 92.5 MCH 31.8 MCHC 34.4 RDW 14.9 Plt Count 249 MPV 9.2 Neut % (Auto) 58.4 Lymph % (Auto) 31.0 [place] % (Auto) 9.2 H Eos % (Auto) 1.0 Baso % (Auto) 0.4 Neut # (Auto) 5.1 Lymph # (Auto) 2.7 [place] # (Auto) 0.8 Eos # (Auto) 0.1 Baso # (Auto) 0.0 WBC Differential . Differential Comment . Sodium 144 Potassium 4.1 Chloride 108 H Carbon Dioxide 27.3 Anion Gap 9 BUN 20 H Creatinine 0.63 Estimated GFR Greater than 89 Random Glucose 93 Calcium 9.4 Total Bilirubin AST ALT Alkaline Phosphatase Troponin I Total Protein Albumin Lipase Urine Color Yellow Urine Clarity Clear Urine pH 6.0 Ur Specific [place] 1.025 Urine Protein Negative Urine Glucose (UA) Negative Urine Ketones Negative Urine Occult Blood Negative Urine Nitrate Negative Urine Bilirubin Negative Urine Urobilinogen 0.2 Ur Leukocyte Esterase Negative Urine WBC 0-5 Ur Squamous Epith Cells 0-5 Urine Bacteria Few H Urine Mucus Few H Micro UA Comment Culture not ind Ur Microscopic Review Microscopic reviewed Urine Culture Comments Culture not ind - Imaging Imaging: ITS Impressions Abdomen/Pelvis CT 08/22/18 19:17 CONCLUSION: 1. 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 2. Persistent fluid collection in the subcutaneous fat in the midline over the upper pelvic region. Chest X-Ray 08/22/18 19:17 CONCLUSION: No acute cardiopulmonary process. CT scan - abdomen: image reviewed Assessment and Plan - Assessment (1) Abdominal pain Code(s): R10.9 - Unspecified abdominal pain Status: Acute Plan: 57 year old female with asthma; abdominal pain -No signs of obstruction -Will start full liquid diet and advance as tolerated -Adjusted pain medications -OOB and mobilize -Medicine managing pulmonary issues -Will plan for nonoperative treatment and patient will continue to follow up as an outpatient -Thank you for this consult; We will continue to follow - Plan Discussed Condition With: Dr. Anuel COLLINS Mrs. Zamudio and at bedside - Attending Attestation patient seen at bedside c/o pain heard pop when cough spell ct parastomal hernia non obstruction possible attempt manual reduction continue non op mgnt The exam, history, and the medical decision-making described in the above note were completed with the assistance of the mid-level provider. I reviewed and agree with the findings presented. I attest that I had a [id number] encounter with the patient on the same day, and personally performed and documented my assessment and findings in the medical record.
[2018-08-23] MEDS ORDERED: Morphine Inj 4 MG/ML Vial IV.PUSH PRN (14:00)
[2018-08-23] MEDS: Benzonatate 100 MG Capsule PO PRN (18:08)
[2018-08-23] MEDS: Loratadine 10 MG Tablet PO SCH (18:08)
[2018-08-23] MEDS: Montelukast 10 MG Tablet PO SCH (18:08)
[2018-08-23] MEDS: Allopurinol 100 MG Tablet PO SCH (18:09)
--- NOTE | 2018-08-23 20:10 | ECG ---
Date Performed: 08/22/2018 Time Performed: 19:25:17 PTAGE: 57 years EKG: Sinus rhythm LOW QRS VOLTAGE IN PRECORDIAL LEADS NONSPECIFIC T-WAVE ABNORMALITY BORDERLINE ECG PREVIOUS TRACING : 06/23/2018 16.59 Since the previous tracing, no significant change noted DOCTOR: Isidoro Worthy Interpretating Date/Time 08/23/2018 20:10:16
[2018-08-23] MEDS: Sertraline 50 MG Tablet PO SCH (21:58)
[2018-08-23] MEDS: Pregabalin 25 MG Capsule PO SCH (21:59)
--- NOTE | 2018-08-24 06:48 | P.PNGS ---
Subjective Patient reports: feels better (better pain control this am once meds adjusted, no nausea or vomiting) Physical Exam Vital signs: Vital Signs 08/23/18 08:00 08/23/18 12:00 08/23/18 16:00 Temperature 97.1 F L 98.1 F 97.3 F L Pulse Rate 70 72 80 Respiratory Rate 16 18 18 Blood Pressure 130/80 141/83 H 124/77 Pulse Oximetry 97 97 97 08/23/18 19:52 08/23/18 20:00 08/24/18 00:00 Temperature 97.2 F L 97.1 F L Pulse Rate 80 82 79 Respiratory Rate 18 20 20 Blood Pressure 138/70 140/69 Pulse Oximetry 95 97 Intake & Output 08/23/18 08/23/18 08/24/18 06:59 18:59 06:59 Intake Total 500 / 500 480 / 480 720 / 720 Balance 500 / 500 480 / 480 720 / 720 Weight 105.1 kg 105.2 kg Intake: IV 500 / 500 NS Inj 500 ML @ Wide Open IV. 500 / 500 SIG BOLUS SHANDRA Rx#:[id number] Oral 0 / 0 480 / 480 720 / 720 Other: # Voids 2 4 3 Date of Last Bowel Movement 08/23/18 08/23/18 Weight On Admission 99.2 kg - Routine Cardiovascular Exam Present: RRR - Routine Abdominal Exam Present: soft (mild ttp around ostomy, no rebound, non distended, difficult to palpate hernia due to habatus ) Results - Labs 08/23/18 05:10 08/23/18 05:10 Laboratory Results - last 24 hr 08/23/18 08/23/18 05:10 05:10 CBC w Diff Auto diff final WBC 8.7 RBC 3.97 L Hgb 12.6 Hct 36.7 MCV 92.5 MCH 31.8 MCHC 34.4 RDW 14.9 Plt Count 249 MPV 9.2 Neut % (Auto) 58.4 Lymph % (Auto) 31.0 Winkler % (Auto) 9.2 H Eos % (Auto) 1.0 Baso % (Auto) 0.4 Neut # (Auto) 5.1 Lymph # (Auto) 2.7 Winkler # (Auto) 0.8 Eos # (Auto) 0.1 Baso # (Auto) 0.0 WBC Differential . Differential Comment . Sodium 144 Potassium 4.1 Chloride 108 H Carbon Dioxide 27.3 Anion Gap 9 BUN 20 H Creatinine 0.63 Estimated GFR Greater than 89 Random Glucose 93 Calcium 9.4 - Imaging Imaging: ITS Impressions Abdomen/Pelvis CT 08/22/18 19:17 CONCLUSION: 1. 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 2. Persistent fluid collection in the subcutaneous fat in the midline over the upper pelvic region. Chest X-Ray 08/22/18 19:17 CONCLUSION: No acute cardiopulmonary process. Assessment and Plan - Assessment (1) Abdominal pain Code(s): R10.9 - Unspecified abdominal pain Status: Acute Plan: 57 year old female with asthma; abdominal pain hx of ex lap for perf diverticulitis colostomy now with parastomal hernia, acute on chronic pain -No signs of obstruction - pain control adjust meds - ostomy appliance change at bedside -full liquid diet and advance as tolerated -OOB and mobilize - ostomy care -Medicine managing pulmonary issues -Will plan for nonoperative treatment
--- NOTE | 2018-08-24 08:31 | P.PN ---
Subjective Interval history: 57-year-old female who is seen and examined today for follow-up on abdominal pain. Patient states that her pain is better controlled with the medications. However she still has pain whenever she coughs. Patient states that the surgeon discussed with her today that he wants to keep her in the hospital over the weekend to manage her pain, make sure there does not develop any incarcerated hernia. Patient vital signs are stable. Patient remains afebrile. Physical Exam Vital signs: Vital Signs 08/23/18 12:00 08/23/18 16:00 08/23/18 19:52 Temperature 98.1 F 97.3 F L Pulse Rate 72 80 80 Respiratory Rate 18 18 18 Blood Pressure 141/83 H 124/77 Pulse Oximetry 97 97 08/23/18 20:00 08/24/18 00:00 08/24/18 07:40 Temperature 97.2 F L 97.1 F L Pulse Rate 82 79 73 Respiratory Rate 20 20 19 Blood Pressure 138/70 140/69 Pulse Oximetry 95 97 Intake & Output 08/23/18 08/24/18 08/24/18 18:59 06:59 18:59 Intake Total 480 / 480 720 / 720 Balance 480 / 480 720 / 720 Weight 105.2 kg Intake: Oral 480 / 480 720 / 720 Other: # Voids 4 3 Date of Last Bowel Movement 08/23/18 Narrative: GENERAL: Well-developed, well-nourished, in no acute distress. alert and orientated HEENT: Head is normocephalic without any lesions or masses noted. Facial features are symmetric. Eyes: Extraocular muscles are intact. Conjunctivae were clear. NECK: Supple without any masses. Trachea midline no deviation. No JVD, CARDIAC: Regular rhythm, regular rate. S1/S2 are heard. No murmurs gallops or rubs. LUNGS: Clear to auscultation bilaterally. No wheeze, rhonchi or rales. No use of accessory muscles on inspiration or expiration. ABDOMEN: Soft, patient appears to be very oversensitive to pain. Rather diffuse abdominal pain, no specific point tenderness. Nondistended. Bowel sounds heard in all 4 quadrants. No organomegaly or masses. Negative rebound, negative guarding EXTREMITIES: No edema, pulses are equal bilaterally. No cyanosis or clubbing NEUROLOGY: Mood and affect appear appropriate. Cranial nerves II through XII grossly intact. Moving all extremities, speech is clear Results - Labs CBC & Chem 7: 08/23/18 05:10 08/23/18 05:10 Assessment and Plan - Assessment (1) Abdominal pain Code(s): R10.9 - Unspecified abdominal pain Status: Acute - Plan Abdominal pain -patient has had chronic abdominal pain since she had a surgery 2 months ago. Does contact surgeon office on a regular basis for pain medication. Apparently has had difficulty with pain management in outpatient setting -CT scan showed parastomal hernia with mesenteric fat and small bowel. There is no signs or indications of any obstruction or incarceration -General surgery recommended supportive care with advancing diet, pain control, nonoperative treatments -Abdominal binder -Discussed with general surgery who indicated that if patient diet advances well without any complications, no signs of obstruction, incarcerated hernia, and pain controlled patient may be ready for discharge tomorrow with pain control including Lortab/Percocet. Dr. Agee indicates that if patient continues to have continued pain then he may try to arrange outpatient pain management after discharge. Dr. Agee still trying to avoid any surgical intervention at this time. Asthma -Continue oxygen supplementation maintain O2 sat greater than 92% -Duo nebs as needed -Continue home medications Hypertension, lipidemia, immunodeficient disorder -Continue home medications DVT prevention -Sequential compression devices Discharge Planning: Discharge planning after pain management complete by general surgery
[2018-08-24] MEDS: Loratadine 10 MG Tablet PO SCH (09:40)
[2018-08-24] MEDS: Allopurinol 100 MG Tablet PO SCH (09:41)
[2018-08-24] MEDS: Benzonatate 100 MG Capsule PO PRN ×2 (12:20→20:15)
[2018-08-24] MEDS: Montelukast 10 MG Tablet PO SCH (18:42)
[2018-08-24] MEDS: Pregabalin 25 MG Capsule PO SCH (20:15)
[2018-08-24] MEDS: Sertraline 50 MG Tablet PO SCH (20:16)
[2018-08-25] MEDS: Allopurinol 100 MG Tablet PO SCH (08:44)
[2018-08-25] MEDS: Loratadine 10 MG Tablet PO SCH (08:44)
[2018-08-25] MEDS: Benzonatate 100 MG Capsule PO PRN (08:53)
--- NOTE | 2018-08-25 09:35 | P.PN ---
Subjective Interval history: 57-year-old female who is seen and examined for follow-up on intractable postsurgical abdominal pain. Patient states that she has not had any colostomy output since Sunday. States that whenever she stands up her hernia sticks out more. Pain apparently is being controlled better. She has not had to receive any breakthrough pain medications. Vital signs are stable. Patient remains afebrile. Physical Exam Vital signs: Vital Signs 08/24/18 12:00 08/24/18 16:00 08/24/18 20:00 Temperature 98.1 F 97.9 F 97 F L Pulse Rate 93 H 92 H 90 Respiratory Rate 18 17 20 Blood Pressure 116/87 142/87 H 142/76 H Pulse Oximetry 99 98 95 08/25/18 00:00 08/25/18 07:30 08/25/18 08:00 Temperature 96.8 F L 97.8 F Pulse Rate 81 74 60 Respiratory Rate 20 16 20 Blood Pressure 142/77 H 123/59 L Pulse Oximetry 98 100 Intake & Output 08/24/18 08/25/18 08/25/18 18:59 06:59 18:59 Intake Total 1200 / 1200 240 / 240 Output Total 200 / 200 Balance 1200 / 1200 40 / 40 Weight 105.2 kg Intake: Oral 1200 / 1200 240 / 240 Output: Urine 200 / 200 Other: # Voids 3 Date of Last Bowel Movement 08/23/18 Narrative: GENERAL: Well-developed, well-nourished, in no acute distress. alert and orientated HEENT: Head is normocephalic without any lesions or masses noted. Facial features are symmetric. Eyes: Extraocular muscles are intact. Conjunctivae were clear. NECK: Supple without any masses. Trachea midline no deviation. No JVD, CARDIAC: Regular rhythm, regular rate. S1/S2 are heard. No murmurs gallops or rubs. LUNGS: Clear to auscultation bilaterally. No wheeze, rhonchi or rales. No use of accessory muscles on inspiration or expiration. ABDOMEN: Soft, Nondistended. Bowel sounds heard in all 4 quadrants. No organomegaly or masses. Negative rebound, negative guarding. No palpable mass- effect around the ostomy. Patient not appear to have any significant amount of pain on palpation. EXTREMITIES: No edema, pulses are equal bilaterally. No cyanosis or clubbing NEUROLOGY: Mood and affect appear appropriate. Cranial nerves II through XII grossly intact. Moving all extremities, speech is clear Results - Labs CBC & Chem 7: 08/23/18 05:10 08/23/18 05:10 Assessment and Plan - Assessment (1) Abdominal pain Code(s): R10.9 - Unspecified abdominal pain Status: Acute - Plan Abdominal pain -patient has had chronic abdominal pain since she had a surgery 2 months ago. Does contact surgeon office on a regular basis for pain medication. Apparently has had difficulty with pain management in outpatient setting -CT scan showed parastomal hernia with mesenteric fat and small bowel. There is no signs or indications of any obstruction or incarceration -General surgery recommended supportive care with advancing diet, pain control, nonoperative treatments -Abdominal binder -Discussed with general surgery who indicated that if patient diet advances well without any complications, no signs of obstruction, incarcerated hernia, and pain controlled patient ready for discharge -Patient indicates she is no colostomy output in 2 days. Physical exam does not indicate any mass-effect at the ostomy. We will obtain abdominal flat and upright x-rays to evaluate for any obstructive process -Abdominal x-ray does not indicate any obstruction, only indicate stool burden - Asthma -Continue oxygen supplementation maintain O2 sat greater than 92% -Duo nebs as needed -Continue home medications Hypertension, lipidemia, immunodeficient disorder -Continue home medications DVT prevention -Sequential compression devices
--- NOTE | 2018-08-25 10:25 | XR ---
EXAM DATE: 08/25/2018 9:13 AM EDT AGE/SEX: 57 years / Female INDICATIONS: abdomen pain, stroma hernia, evaluate for obstruction CLINICAL DATA: This is the patient's subsequent encounter. Patient reports that signs and symptoms h ave been present for 4 - 6 days and indicates a pain score of 8/10. MEDICAL/SURGICAL HISTORY: . Hypertension. Asthma. . . Hysterectomy. Sinus. Tonsillectomy. Haroon arean section. Recent colon resection. COMPARISON: No prior exams available for comparison. FINDINGS: Supine and upright views of the abdomen were performed. The abdominal bowel gas pattern is nonobstruc tive with a large stool burden noted. No air-fluid levels are seen. No abnormal masses, calcification s, or organomegaly is seen. The visualized lower lungs are clear. No evidence of free intraperitoneal gas. The osseous structures are unremarkable. CONCLUSION: Large stool burden. No evidence of obstruction. Electronically signed by: Glenna Hemphill MD 08/25/2018 10:24 AM EDT
[2018-08-25] MEDS ORDERED: Polyethylene Glycol 3350 255 GM Bottle PO ONE (11:00)
[2018-08-25] MEDS ORDERED: Polyethylene Glycol 3350 17 GM Packet PO ONE ×2 (12:00)
[2018-08-25] MEDS: Senna/Docusate Sodium 8.6/50 MG Tablet PO SCH ×2 (12:07→20:10)
--- NOTE | 2018-08-25 16:44 | P.PNGS ---
Subjective Patient reports: feels better, pain is less Physical Exam Vital signs: Vital Signs 08/24/18 20:00 08/25/18 00:00 08/25/18 07:30 Temperature 97 F L 96.8 F L Pulse Rate 90 81 74 Respiratory Rate 20 20 16 Blood Pressure 142/76 H 142/77 H Pulse Oximetry 95 98 08/25/18 08:00 08/25/18 12:00 Temperature 97.8 F 98.6 F Pulse Rate 60 81 Respiratory Rate 20 19 Blood Pressure 123/59 L 133/78 Pulse Oximetry 100 98 Intake & Output 08/24/18 08/25/18 08/25/18 18:59 06:59 18:59 Intake Total 1200 / 1200 480 / 480 Output Total 200 / 200 Balance 1200 / 1200 280 / 280 Weight 105.2 kg Intake: Oral 1200 / 1200 480 / 480 Output: Urine 200 / 200 Other: # Voids 3 Date of Last Bowel Movement 08/23/18 - Constitutional no acute distress - Routine Abdominal Exam Present: soft Comments: LLQ parastomal hernia, reducible Results - Labs 08/23/18 05:10 08/23/18 05:10 - Imaging Imaging: ITS Impressions Abdomen/Pelvis CT 08/22/18 19:17 CONCLUSION: 1. 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 2. Persistent fluid collection in the subcutaneous fat in the midline over the upper pelvic region. Chest X-Ray 08/22/18 19:17 CONCLUSION: No acute cardiopulmonary process. Abdomen X-Ray 08/25/18 09:13 CONCLUSION: Large stool burden. No evidence of obstruction. Assessment and Plan - Assessment (1) Abdominal pain Code(s): R10.9 - Unspecified abdominal pain Status: Acute Plan: 57 year old female with parastomal hernia, non-incarcerated on exam - pain is from hernia, agree with binder, pain control, no heavy lifting, control cough, etc - can DC home from surgery standpoint and FU with Dr. Agee
[2018-08-25] MEDS: Montelukast 10 MG Tablet PO SCH (18:33)
[2018-08-25] MEDS: Pregabalin 25 MG Capsule PO SCH (20:10)
[2018-08-25] MEDS: Sertraline 50 MG Tablet PO SCH (20:11)
[2018-08-26] MEDS ORDERED: Magnesium Citrate Liq 300 ML Bottle PO ONE (08:00)
--- NOTE | 2018-08-26 08:16 | P.PNGS ---
Subjective Interval history: Resting in bed Concerned about no BM Pain better No nausea/vomiting Physical Exam Vital signs: Vital Signs 08/25/18 12:00 08/25/18 16:00 08/25/18 17:05 Temperature 98.6 F 97.7 F Pulse Rate 81 71 Respiratory Rate 19 20 16 Blood Pressure 133/78 112/62 Pulse Oximetry 98 98 08/25/18 20:00 08/25/18 20:10 08/26/18 00:00 Temperature 96.2 F L 97.0 F L Pulse Rate 68 74 75 Respiratory Rate 18 Blood Pressure 139/72 152/67 H Pulse Oximetry 98 98 08/26/18 07:44 Temperature Pulse Rate 72 Respiratory Rate 16 Blood Pressure Pulse Oximetry Intake & Output 08/25/18 08/26/18 08/26/18 18:59 06:59 18:59 Intake Total 960 / 960 1000 / 1000 Output Total 200 / 200 Balance 760 / 760 1000 / 1000 Weight 105.2 kg Intake: Oral 960 / 960 1000 / 1000 Output: Urine 200 / 200 Other: # Voids 2 Date of Last Bowel Movement 08/23/18 Narrative: Alert and awake Abd: soft; binder in place; stoma pink; no stool or gas; less tender around stoma Results - Labs 08/23/18 05:10 08/23/18 05:10 - Imaging Imaging: ITS Impressions Abdomen/Pelvis CT 08/22/18 19:17 CONCLUSION: 1. 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 2. Persistent fluid collection in the subcutaneous fat in the midline over the upper pelvic region. Chest X-Ray 08/22/18 19:17 CONCLUSION: No acute cardiopulmonary process. Abdomen X-Ray 08/25/18 09:13 CONCLUSION: Large stool burden. No evidence of obstruction. Assessment and Plan - Assessment (1) Abdominal pain Code(s): R10.9 - Unspecified abdominal pain Status: Acute Plan: 57 year old female with asthma; parastomal hernia, -Exam improved; pain better controlled -Regular diet -Bowel regimen--- Elvin COLLINS added Mag citrate -Constipation likely secondary to narcotic -Pulmonary status stabilized -DC once + stool in colostomy - Attending Attestation The exam, history, and the medical decision-making described in the above note were completed with the assistance of the mid-level provider. I reviewed and agree with the findings presented. I attest that I had a [id number] encounter with the patient on the same day, and personally performed and documented my assessment and findings in the medical record. parastomal hernia, reducible on PE, no signs of obstruction recommend pain control and no heavy lifting, pain is due to hernia itself and will need repair electively or colostomy reversal electively d/w patient
[2018-08-26 08:45] VITALS: BP 136/78; PULSE 74; RESP 18; TEMP 96.1; O2SAT 97
[2018-08-26] MEDS: Loratadine 10 MG Tablet PO SCH (09:53)
[2018-08-26] MEDS: Senna/Docusate Sodium 8.6/50 MG Tablet PO SCH (09:53)
[2018-08-26] MEDS: Allopurinol 100 MG Tablet PO SCH (09:54)
--- NOTE | 2018-08-26 14:14 | P.DS ---
Date of admission: 08/22/18 22:29 Primary care physician: Martin Peguero Attending physician on discharge: Dorian Goldsmith Anticipated date of discharge: 08/26/18 Brief History from admission: 57-year-old female with recent history of multiple abdominal issues. Approximately 2 months ago patient did have perforated bowel which she underwent colectomy with colostomy placement. She has been following up with the general surgeon Dr. Agee. Patient did develop a seroma which was drained in the outpatient setting. Patient states that she continued to have abdominal pain ever since she had the surgery and is not improved. Patient states that she does have underlying lung disease with restrictive airway disease, asthma in which she is followed by Dr. Orta on a regular basis. Patient has had a chronic cough in which she states that whenever she coughs it causes her abdominal pain get worse. On Sunday she coughed and felt a pop in her abdomen and since then she indicates that she has been having worsening pain. She called her surgeon who scheduled her to have a ultrasound done early next week. However patient states that the pain was so severe she came to the emergency department for evaluation. Patient had workup done. Laboratory studies all are unremarkable. CT the abdomen shows a left colostomy with parastomal hernia containing mesenteric fat and small bowel. There is no indication of any obstruction or incarcerated hernia. ER physician contacted general surgery who recommended that the patient be observed in the hospital under the hospitalist with general surgery consult. DS: Diagnosis - Discharge Diagnosis (1) Abdominal pain Status: Acute DS: Medications - Discharge Medications Prescriptions: hydrocodone-acetaminophen 1 tab PO Q4H PRN #18 tab PRN Reason: acute post op pain sennosides-docusate sodium [Senna Plus] 1 tab PO BID #60 tab DS: Summary Hospital Course: Abdominal pain -patient has had chronic abdominal pain since she had a surgery 2 months ago. Does contact surgeon office on a regular basis for pain medication. Apparently has had difficulty with pain management in outpatient setting -CT scan showed parastomal hernia with mesenteric fat and small bowel. There is no signs or indications of any obstruction or incarceration -General surgery recommended supportive care with advancing diet, pain control, nonoperative treatments -Abdominal binder -Discussed with general surgery who indicated that if patient diet advances well without any complications, no signs of obstruction, incarcerated hernia, and pain controlled patient ready for discharge -Abdominal x-ray does not indicate any obstruction, only indicate stool burden -Patient has had ostomy output today Asthma -Continue oxygen supplementation maintain O2 sat greater than 92% -Duo nebs as needed -Continue home medications Hypertension, lipidemia, immunodeficient disorder -Continue home medications - Time Spent with Patient Total time spent providing and/or coordinating discharge services: Greater than 30 minutes - Quality: VTE Deep Vein Thrombosis/Pulmonary Embolism Present on Admission: No Exam Vital signs: Vital Signs 08/25/18 16:00 08/25/18 17:05 08/25/18 20:00 Temperature 97.7 F 96.2 F L Pulse Rate 71 68 Respiratory Rate 20 16 18 Blood Pressure 112/62 139/72 Pulse Oximetry 98 98 08/25/18 20:10 08/26/18 00:00 08/26/18 07:44 Temperature 97.0 F L Pulse Rate 74 75 72 Respiratory Rate 18 18 16 Blood Pressure 152/67 H Pulse Oximetry 98 08/26/18 08:00 Temperature 96.1 F L Pulse Rate 74 Respiratory Rate 18 Blood Pressure 136/78 Pulse Oximetry 97 Intake & Output 08/25/18 08/26/18 08/26/18 18:59 06:59 18:59 Intake Total 960 / 960 1000 / 1000 Output Total 200 / 200 Balance 760 / 760 1000 / 1000 Weight 105.2 kg Intake: Oral 960 / 960 1000 / 1000 Output: Urine 200 / 200 Other: # Voids 2 Date of Last Bowel Movement 08/23/18 Narrative: GENERAL: Well-developed, well-nourished, in no acute distress. alert and orientated HEENT: Head is normocephalic without any lesions or masses noted. Facial features are symmetric. Eyes: Extraocular muscles are intact. Conjunctivae were clear. NECK: Supple without any masses. Trachea midline no deviation. No JVD, CARDIAC: Regular rhythm, regular rate. S1/S2 are heard. No murmurs gallops or rubs. LUNGS: Clear to auscultation bilaterally. No wheeze, rhonchi or rales. No use of accessory muscles on inspiration or expiration. ABDOMEN: Soft, Nondistended. Bowel sounds heard in all 4 quadrants. No organomegaly or masses. Negative rebound, negative guarding. No palpable mass- effect around the ostomy. Patient not appear to have any significant amount of pain on palpation. EXTREMITIES: No edema, pulses are equal bilaterally. No cyanosis or clubbing NEUROLOGY: Mood and affect appear appropriate. Cranial nerves II through XII grossly intact. Moving all extremities, speech is clear Results Procedures completed during hospitalization: none - Impressions ITS Impressions Abdomen/Pelvis CT 08/22/18 19:17 CONCLUSION: 1. 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 2. Persistent fluid collection in the subcutaneous fat in the midline over the upper pelvic region. Chest X-Ray 08/22/18 19:17 CONCLUSION: No acute cardiopulmonary process. Abdomen X-Ray 08/25/18 09:13 CONCLUSION: Large stool burden. No evidence of obstruction. Discharge Plan - Discharge Disposition Patient Disposition: 01 Discharge Home - Discharge Condition Condition: Stable - Discharge Order Discharge Orders: Discharge Order (Routine); Ordered 08/26/18 Ordered By: Blake Arredondo - Discharge Details Anticipated Discharge Date: 08/26/18 - Physicians Team Primary Care Provider: Martin Peguero Attending Provider: Dorian Goldsmith Other Providers: Nehemias Vizcarra MD
== END 2018-08-26 12:56 | disposition home or self-care (01) ==
LOC: PHEDA 18:48 → PHED 18:48 → PH3 08-23 01:34
PROVIDERS: ADMIT Hospitalist; ATTEND Hospitalist

== ENCOUNTER 2018-10-23 11:51 | Inpatient (IN) ==
[2018-10-23] MEDS ORDERED: Sodium Chlor 0.9% Inj 500 ML IV.CONT ONE (13:00)
[2018-10-23] MEDS ORDERED: Metoprolol Tartrate 25 MG Tablet PO ONE (13:00)
[2018-10-23] MEDS ORDERED: ceFAZolin 2 GM Premix Inj 2 GM/50 ML PIGGYBACK IV.SIG ONE (13:24)
[2018-10-23] MEDS ORDERED: Bupivacaine Liposomal PF 1.3% Inj 20 ML Vial ONE (16:07)
[2018-10-23] MEDS ORDERED: Bupivacaine PF 0.25% Inj 30 ML Vial ONE (16:07)
--- NOTE | 2018-10-23 16:47 | P.OP ---
- Preoperative Diagnosis (1) Diverticulitis of colon with perforation (2) Colostomy in place (3) Parastomal hernia - Postoperative Diagnosis (1) Diverticulitis of colon with perforation (2) Colostomy in place (3) Parastomal hernia Procedure: dx lap, lap lionel, colostomy takedown, proctosigmoidoscopy, repair of parastomal hernia JOSH Anesthesia: GETA Surgeon: Huey Agee MD Pathology: none sent Operation and Findings: adhesions, no leak, no tension
[2018-10-23] MEDS ORDERED: Bisacodyl 10 MG Supp RECTAL PRN (16:53)
[2018-10-23] MEDS ORDERED: Promethazine 25 MG Supp RECTAL PRN (16:53)
[2018-10-23] MEDS ORDERED: Post-op Orders (for Pharmacy) OTHER ONE (16:53)
[2018-10-23] MEDS ORDERED: Naloxone Inj 0.4 MG/ML Vial IV.PUSH PRN (16:56)
[2018-10-23] MEDS ORDERED: ceFAZolin Inj 1,000 MG in Sodium Chlor 0.9% Inj 100 ML IV.SIG SCH (17:00)
[2018-10-23] MEDS ORDERED: Sodium Chloride 0.9% 2 ML Flush PRN IV.FLUSH (18:59)
[2018-10-23] MEDS ORDERED: Morphine Sulfate Inj 2 MG/ML Vial IV.SIG ONE (19:00)
[2018-10-23] MEDS ORDERED: *morphine SULFATE 10 MG/ML PERIprocedure ONLY ONE ×3 (20:58→22:03)
[2018-10-23] MEDS ORDERED: fentaNYL Citrate Inj 100 MCG/2 ML Ampul ONE (20:59)
[2018-10-23] MEDS ORDERED: Morphine Inj 4 MG/ML Vial ONE (20:59)
[2018-10-23] MEDS ORDERED: *Meperidine Inj 25 MG/ML Vial PERIprocedural Use ONLY ONE (21:08)
[2018-10-23 21:22] LABS: Baso % (Auto) 0.4 % (0.0-2.0); Eos % (Auto) 0.2 % (0.0-4.0); Lymph # (Auto) 1.6 th/mm3 (1.0-4.8); Lymph % (Auto) 15.3 % (9.0-44.0); Mean Corpuscular HGB Conc 33.4 % (32.0-36.0); Mean Corpuscular Hemoglobin 29.7 pg (27.0-34.0); Mean Corpuscular Volume 88.9 fL (80.0-100.0); Mean Platelet Volume 8.4 fL (7.0-11.0); Mono # (Auto) 0.5 th/mm3 (0.0-0.9); Mono % (Auto) 4.5 % (0.0-8.0); Neut # (Auto) 8.3 th/mm3 (1.8-7.7); Neut % (Auto) 79.6 % (16.0-70.0); Platelet Count 249 th/mm3 (150-450); Red Blood Count 4.72 mil/mm3 (4.00-5.30); Red Cell Distribution Width 14.2 % (11.6-17.2); White Blood Count 10.4 th/mm3 (4.0-11.0)
[2018-10-23] MEDS: Sod Chloride 0.9% Inj 1,000 ML IV.CONT SCH (21:33)
[2018-10-23] MEDS: Morphine Inj 30 MG/30 ML PCA.VIAL PCA PRN (21:36)
[2018-10-23 21:44] LABS: Anion Gap 10 meq/L (5-15); Blood Urea Nitrogen 13 mg/dL (7-18); Calcium 8.9 mg/dL (8.5-10.1); Carbon Dioxide 19.7 meq/L (21.0-32.0); Chloride 110 meq/L (98-107); Glomerular Filtration Rate Greater Than 89 mL/min (>89); Glucose,Random 114 mg/dL (74-106); Potassium 3.9 meq/L (3.5-5.1); Sodium 140 meq/L (136-145)
[2018-10-23] MEDS ORDERED: *HYDROmorphone PF Inj 1 MG/ML Ampul PERIprocedural Use ONLY ONE (22:19)
[2018-10-23] MEDS: Sodium Chloride 0.9% 2 ML Flush BID IV.FLUSH SCH (22:34)
[2018-10-23] MEDS: Senna/Docusate Sodium 8.6/50 MG Tablet PO SCH (22:34)
[2018-10-24] MEDS: ceFAZolin 1 GM Premix Inj 1 GM/50 ML PIGGYBACK IV.SIG SCH ×3 (00:25→16:59)
[2018-10-24] MEDS: Sod Chloride 0.9% Inj 1,000 ML IV.CONT SCH ×4 (06:09→23:00)
[2018-10-24] MEDS: Morphine Inj 30 MG/30 ML PCA.VIAL PCA PRN ×2 (06:29→14:59)
[2018-10-24] MEDS: Sodium Chloride 0.9% 2 ML Flush BID IV.FLUSH SCH ×2 (08:45→20:53)
[2018-10-24] MEDS: Senna/Docusate Sodium 8.6/50 MG Tablet PO SCH ×2 (08:45→20:52)
[2018-10-24] MEDS ORDERED: Influenza (Quadrivalent) Vaccine 0.5 ML Syringe IM ONE (09:00)
--- NOTE | 2018-10-24 09:28 | P.PNGS ---
Subjective Interval history: Woke up with severe migraine ----nausea and vomiting secondary to that Physical Exam Vital signs: Vital Signs 10/23/18 13:00 10/23/18 20:51 10/23/18 21:00 Temperature 98.3 F 97.5 F L Pulse Rate 88 80 61 Respiratory Rate 18 13 13 Blood Pressure 187/101 H 138/97 H 175/85 H Pulse Oximetry 98 100 100 10/23/18 21:15 10/23/18 21:30 10/23/18 21:45 Temperature Pulse Rate 71 86 75 Respiratory Rate 11 L 16 12 Blood Pressure 175/87 H 164/91 H 167/103 H Pulse Oximetry 100 100 100 10/23/18 22:00 10/23/18 22:06 10/23/18 22:15 Temperature Pulse Rate 83 81 Respiratory Rate 14 18 18 Blood Pressure 188/76 H 197/81 H Pulse Oximetry 100 100 10/23/18 22:30 10/23/18 23:00 10/24/18 04:00 Temperature 98.1 F 97.3 F L 97.5 F L Pulse Rate 68 92 H 101 H Respiratory Rate 10 L 20 20 Blood Pressure 176/83 H 145/79 H 116/69 Pulse Oximetry 100 94 L 93 L Intake & Output 10/23/18 10/24/18 10/24/18 18:59 06:59 18:59 Intake Total 4110 / 4110 1004.3 / 1004.3 Output Total 985 / 985 Balance 3125 / 3125 1004.3 / 1004.3 Weight 104 kg 109.1 kg Intake: IV 150 / 150 1004.3 / 1004.3 NS Inj 1,000 ML @ 100 mls/hr IV 904.3 / 904.3 .CONT .Q10H SHANDRA Rx#:[id number] Ancef 1 GM Premix Inj 1 gm In 50 / 50 50 ml @ 100 mls/hr IV.SIG Q8H SHANDRA Rx#:[id number] Flagyl 500 MG Inj 100 ML @ 200 100 / 100 100 / 100 mls/hr IV.SIG Q8H SHANDRA Rx#: [id number] Oral 960 / 960 Anesthesia Amount 3000 / 3000 Output: Urine 600 / 600 Estimated Blood Loss 60 / 60 Urine Amount (Catheter) 300 / 300 Indwelling Urethral Catheter 300 / 300 Wound Drainage 25 / # 1 Abdomen 10 # 2 Abdomen Other: Weight On Admission 104 kg Narrative: Alert and awake Abd: Soft; JOSH in place with no drainage; NAT with dark red drainage; abdomen soft; moderately tender - Urinary Catheter Management Indwelling Urethral Catheter Cath placed during this visit: yes Reason for continuing: Hourly intake/output Insertion date: 10/23/18 Insertion time: 16:51 Results - Labs 10/23/18 21:05 10/23/18 21:05 Laboratory Results - last 24 hr 10/23/18 10/23/18 10/23/18 13:25 21:05 21:05 WBC 10.4 RBC 4.72 Hgb 14.0 Hct 42.0 MCV 88.9 MCH 29.7 MCHC 33.4 RDW 14.2 Plt Count 249 MPV 8.4 Neut % (Auto) 79.6 H Lymph % (Auto) 15.3 [place] % (Auto) 4.5 Eos % (Auto) 0.2 Baso % (Auto) 0.4 Neut # (Auto) 8.3 H Lymph # (Auto) 1.6 [place] # (Auto) 0.5 Eos # (Auto) 0.0 Baso # (Auto) 0.0 WBC Differential . Differential Comment Auto diff final Sodium 140 Potassium 3.9 Chloride 110 H Carbon Dioxide 19.7 L Anion Gap 10 BUN 13 Creatinine 0.62 Estimated GFR Greater than 89 Random Glucose 114 H Calcium 8.9 Blood Type O Positive Blood Type Recheck Not needed Antibody Screen Negative Assessment and Plan - Assessment (1) S/P colostomy takedown Code(s): Z98.890 - Other specified postprocedural states Status: Acute Plan: 57 year old female POD1 dx lap; lap DEANA; colostomy takedown; repair of parastomal hernia -Migraine this AM--- restarted home Imitrex -Continue IVF -Nausea/vomiting ---likely secondary to migraine -Okay to continue sips of clear liquids as long as not nausea/vomiting -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
--- NOTE | 2018-10-24 12:26 | P.CONIM ---
History of Present Illness Reason for Consult: medical management Primary Care Provider: UNKNOWN Chief Complaint: abdominal pain History of Present Illness: patient is a 57 y/o female with history of asthma, hypogammaglobulinemia, hypertension, diverticulosis with bowel resection few months ago, underwent dx lap, colostomy takedown, proctosigmoidoscopy, repair of parastomal hernia on 10/23/18. at the time of my evaluation she was resting comfortably with no acute distress. she was complaining of mild generalized abdominal pain. she had some headache and nausea earlier which she relates to her migraine; this has improved. she denies any sob but has some occasional cough. she's complaining of pain to the right knee which she relates to the fall she had last week. she says that she just finished the course of levaquin and she was taken off prednisone about a month ago. Review of Systems Review of Systems: all other systems reviewed are negative [facility] Medical History Medical History Fibromyalgia (Acute) Hypertension (Acute) Polyarticular arthritis (Acute) Asthma (Acute) Diverticulosis (Acute) Hyperlipidemia (Acute) Hypogammaglobulinemia (Acute) Immunodeficiency disorder (Acute) Perforated bowel (Acute) Surgical History Surgical History H/O abdominal hysterectomy (Acute) H/O sinus surgery (Acute) History of section (Acute) History of colostomy (Acute) History of elbow surgery (Acute) History of rotator cuff surgery (Acute) History of surgery on arm (Acute) Hx of tonsillectomy (Acute) Status post wrist surgery (Acute) Family History Family History Other Family history of chronic obstructive pulmonary disease Family history of heart disease Social History Social History Substance History: No History of Abuse Second Hand Smoke Exposure: No Smoking Status: Never smoker Tobacco Type: Cigarettes How Often Do You Have a Drink Containing Alcohol: Never Recent Travel in [facility] within the Last 8 Weeks: No Recent Out of Country Travel within the Last 8 Weeks: No Immunization History Tetanus Immunization: >5 Years Hx Influenza Vaccine This Season: No Medications and Allergies Allergies Allergy/AdvReac Type Severity Reaction Status Date / Time chlorhexidine Allergy Severe Skin Verified 10/23/18 13:14 blisters diclofenac Allergy Severe Hives Verified 10/23/18 13:14 tramadol Allergy Severe Hives Verified 10/23/18 13:14 adhesive Allergy Intermediate Rash Verified 10/23/18 13:14 ketorolac Allergy Intermediate Rash Verified 10/23/18 13:14 Home Medications Medication Instructions Recorded Confirmed Type allopurinol 100 mg PO DAILY 06/23/18 10/23/18 History atorvastatin 10 mg PO HS 06/23/18 10/23/18 History azelastine 1 spray INTRANASAL DAILY 06/23/18 10/23/18 History benzonatate 100 mg PO Q8HR PRN 06/23/18 10/23/18 History budesonide-formoterol [Symbicort] 2 puff INHALATION BID 06/23/18 10/23/18 History cyclobenzaprine 10 mg PO TID PRN 06/23/18 10/23/18 History fluticasone 2 spray INTRANASAL DAILY 06/23/18 10/23/18 History fluticasone [Flovent HFA] 1 puff INHALATION BID 06/23/18 10/23/18 History ipratropium bromide 0.5 mg INHALATION Q4H PRN 06/23/18 10/23/18 History losartan 50 mg PO DAILY 06/23/18 10/23/18 History methylprednisolone 10 mg PO DAILY 06/23/18 10/23/18 History montelukast 10 mg PO DAILY 06/23/18 10/23/18 History omeprazole 40 mg PO DAILY 06/23/18 10/23/18 History pregabalin [Lyrica] 100 mg PO TID 06/23/18 10/23/18 History sertraline 50 mg PO HS 06/23/18 10/23/18 History tiotropium bromide [Spiriva 2 puff INHALATION DAILY 06/23/18 10/23/18 History Respimat] ascorbic acid (vitamin C) [Vitamin 800 mg PO DAILY 06/26/18 10/23/18 History C] budesonide 2 ml INHALATION Q12H 07/01/18 10/23/18 History calcium carbonate-vitamin D3 1,200 mg PO DAILY 07/01/18 10/23/18 History [Calcium 500 + D] loratadine [Claritin] 10 mg PO DAILY 07/01/18 10/23/18 History omega 4-ohh-iyp-fish oil [Fish Oil] 2,000 mg PO DAILY 07/01/18 10/23/18 History Cuvutru See Label Instructions .ROUTE 08/22/18 10/23/18 History .COMPLEX Nambumetone 750 mg PO BID 10/23/18 History calcium carbonate [Calcium 600] 1,200 mg PO DAILY 10/23/18 10/23/18 History lorazepam [Ativan] 0.5 mg PO DIRECTED PRN 10/23/18 10/23/18 History sumatriptan succinate [Imitrex] 100 mg PO DAILY PRN 10/24/18 10/24/18 History Active Medications: Active Medications Al Hydroxide/Mg Hydroxide (Milk Of Rupa Cheng) 30 ml PO Q12H PRN PRN Reason: Mild Constipation Alvimopan (Entereg) 12 mg PO Q12HR SHANDRA Stop: 10/30/18 21:01 Last Admin: 10/24/18 08:44 Dose: 12 mg Bisacodyl (Dulcolax Supp) 10 mg RECTAL DAILY PRN PRN Reason: SEVERE CONSITIPATION Diphenhydramine HCl (Benadryl) 25 mg PO Q6H PRN PRN Reason: ITCHING Enalaprilat (Vasotec Inj) 2.5 mg IV.PUSH Q8H PRN PRN Reason: SBP > 160 Last Admin: 10/24/18 10:12 Dose: 2.5 mg Lactated Ringer's (Lr 1000 Ml Inj) 1,000 mls @ 30 mls/hr IV.CONT .Q24H ONE Stop: 10/24/18 12:59 Last Admin: 10/23/18 13:20 Dose: 30 mls/hr Metronidazole/Sodium Chloride (Flagyl 500 Mg Inj) 100 mls @ 200 mls/hr IV.SIG Q8H SHANDRA Stop: 10/24/18 15:29 Last Infusion: 10/24/18 08:45 Dose: Infused Sodium Chloride (Ns Inj) 1,000 mls @ 100 mls/hr IV.CONT .Q10H SHANDRA Last Admin: 10/24/18 08:38 Dose: 100 mls/hr Morphine Sulfate (Morphine Inj) 30 mg in 30 mls @ 0 mls/hr PLASTER MAKER UNSCH PRN PRN Reason: prn pain Last Admin: 10/24/18 06:29 Dose: 0 mls/hr Cefazolin Sodium/Dextrose (Ancef 1 Gm Premix Inj) 1 gm in 50 mls @ 100 mls/hr IV.SIG Q8H [facility] Stop: 10/24/18 16:29 Last Admin: 10/24/18 08:42 Dose: 100 mls/hr Lactulose (Lactulose Liq) 30 ml PO DAILY PRN PRN Reason: SEVERE CONSITIPATION Miscellaneous Information ([facility] [place] [facility]) 0 each OTHER UNSCH PRN PRN Reason: SEE LABEL COMMENTS Stop: 10/24/18 20:50 Naloxone HCl (Narcan Inj) 0.4 mg IV.PUSH UNSCH PRN PRN Reason: Resp rate < 10 Ondansetron HCl (Zofran Odt) 4 mg PO Q6H PRN PRN Reason: NAUSEA OR VOMITING Ondansetron HCl (Zofran Inj) 4 mg IV.PUSH Q6H PRN PRN Reason: NAUSEA OR VOMITING Last Admin: 10/24/18 05:37 Dose: 4 mg Promethazine HCl (Phenergan) 25 mg PO Q6H PRN PRN Reason: NAUSEA OR VOMITING Last Admin: 10/24/18 08:46 Dose: 25 mg Promethazine HCl (Phenergan Supp) 25 mg RECTAL Q6H PRN PRN Reason: NAUSEA OR VOMITING Senna/Docusate Sodium (Daphne-Colace) 1 tab PO BID [facility] Last Admin: 10/24/18 08:45 Dose: Not Given Sennosides (Senokot) 17.2 mg PO Q12H PRN PRN Reason: Moderate Constipation Sodium Chloride (Ns Flush) 2 ml IV.FLUSH BID [facility] Last Admin: 10/24/18 08:45 Dose: Not Given Sodium Chloride (Ns Flush) 2 ml IV.FLUSH PRN PRN PRN Reason: FLUSH AFTER USING IV ACCESS Sumatriptan Succinate (Imitrex) 100 mg PO DAILY PRN PRN Reason: HEADACHE Last Admin: 10/24/18 10:09 Dose: 100 mg Physical Exam Vital signs: Last Vital Signs Temp 97.5 F L 10/24/18 04:00 Pulse 101 H 10/24/18 04:00 Resp 20 10/24/18 04:00 BP 137/69 10/24/18 11:07 Pulse Ox 93 L 10/24/18 04:00 Intake & Output 10/22/18 10/23/18 10/24/18 10/25/18 06:59 06:59 06:59 06:59 Intake Total 4110 / 4110 1004.3 / 1004.3 Output Total 985 / 985 Balance 3125 / 3125 1004.3 / 1004.3 Weight 109.1 kg Constitutional no acute distress Routine HEENT Exam Eye: Present PERRL Routine Neck Exam Present supple Routine Respiratory Exam Present CTA bilaterally Routine Cardiovascular Exam Present RRR Routine Abdominal Exam Present soft Comments: mild generalized tenderness with drains in place. Routine Extremities Exam Comments: right knee is swollen/ tender with mild decrease in ROM. Routine Neurological Exam Present alert and oriented X3 Results Labs CBC & Chem 7: 10/23/18 21:05 10/23/18 21:05 Assessment and Plan (1) S/P colostomy takedown: Code(s): Z98.890 - Other specified postprocedural states Status: Acute Plan A/P - history of diverticulosis/ bowel perforation/ colectomy/ colostomy placement- now s/p dx lap, colostomy takedown, proctosigmoidoscopy, repair of parastomal hernia on 10/23. continue with pain control- management per general surgery. -asthma with no exacerbation; resume home inhalers; will add duoned as needed. -right knee swelling/ pain ; will check XR of the right knee- continue pain control. -hypertension; resume Losartan- vasotec as needed; will continue to monitor and adjsut the regimen as needed. -DVT prophylaxis; per general surgery. Thank you for the consult. Discussed Condition With: and the patient. Discharge Planning: per general surgery.
[2018-10-24 13:24] LABS: Baso % (Auto) 0.1 % (0.0-2.0); Hematocrit 37.3 % (35.0-46.0); Hemoglobin 13.6 gm/dL (11.6-15.3); Lymph # (Auto) 0.9 th/mm3 (1.0-4.8); Lymph % (Auto) 8.7 % (9.0-44.0); Mean Corpuscular Hemoglobin 31.4 pg (27.0-34.0); Mean Corpuscular Volume 86.4 fL (80.0-100.0); Mean Platelet Volume 8.8 fL (7.0-11.0); Mono # (Auto) 1.1 th/mm3 (0.0-0.9); Mono % (Auto) 10.1 % (0.0-8.0); Neut # (Auto) 8.6 th/mm3 (1.8-7.7); Neut % (Auto) 81.1 % (16.0-70.0); Platelet Count 281 th/mm3 (150-450); Red Blood Count 4.32 mil/mm3 (4.00-5.30); Red Cell Distribution Width 14.4 % (11.6-17.2); White Blood Count 10.6 th/mm3 (4.0-11.0)
[2018-10-24 13:25] LABS: Mean Corpuscular HGB Conc 36.4 % (32.0-36.0)
[2018-10-24 13:46] LABS: Calcium 9.1 mg/dL (8.5-10.1); Carbon Dioxide 26.6 meq/L (21.0-32.0); Potassium 3.5 meq/L (3.5-5.1)
--- NOTE | 2018-10-24 15:46 | XR ---
EXAM DATE: 10/24/2018 3:40 PM EST AGE/SEX: 57 years / Female INDICATIONS: Right knee pain after fall. CLINICAL DATA: This is the patient's initial encounter. Patient reports that signs and symptoms have been present for 1 week and indicates a pain score of 4/10. MEDICAL/SURGICAL HISTORY: None. None. COMPARISON: No prior exams available for comparison. FINDINGS: Bony structures are intact and in normal alignment. Joints are intact without dislocation or signifi cant arthropathy. Osseous density is normal. There is diffuse soft tissue prominence. No radiopaque foreign bodies seen. CONCLUSION: Negative trauma study. Electronically signed by: Reagan Oreilly MD Board Certified Radiologist 10/24/2018 3:44 PM EST
--- NOTE | 2018-10-24 19:51 | MP ---
cc: Huey Agee MD DATE OF OPERATION: 10/23/2018 PREOPERATIVE DIAGNOSIS: History of perforated diverticulitis, status post sigmoid resection with colostomy creation, parastomal hernia. POSTOPERATIVE DIAGNOSIS: History of perforated diverticulitis, status post sigmoid resection with colostomy creation, parastomal hernia, adhesions. SURGERY PERFORMED: 1. Diagnostic laparoscopy. 2. Laparoscopic lysis of adhesions. 3. Colostomy takedown. 4. Proctosigmoidoscopy. 5. Repair of parastomal hernia. 6. JOSH placement. SURGEON: Huey Agee MD SALES INCENTIVE ANALYST: MD Dr. Nehemias Lewis was necessary due to complexity of the case. Dr. Vizcarra assisted with camera control, retraction and performed proctosigmoidoscopy. ANESTHESIA: GETA. IV FLUIDS: See anesthesia sheet. ESTIMATED BLOOD LOSS: 30 mL DRAINS: Right lower quadrant pelvic drain, 10-[place] left lower quadrant drain, subcutaneous drain, 10-[place]. PATHOLOGY: Segmental colon sent, sigmoid, descending. WOUND CLASSIFICATION: Clean/contaminated. FINDINGS: No leak on final saline submersion with air insufflation by proctosigmoidoscopy. Good hemostasis. Multiple intra-abdominal adhesions. INDICATIONS: The patient is a 57-year-old female who presented with a history of COPD and a perforated diverticulitis. Several months ago, the patient noted to be a septic, perforation of colon with gross contamination necessitating a sigmoidectomy with colostomy creation and exploratory laparotomy with washout. The patient did relatively well. Postoperatively, she was able to wean off her steroids and was on immunotherapy and a discussion for reversal of colostomy was done. Decision after confirmation of no stricturing by colon was planned. DETAILS OF PROCEDURE: The patient was taken to the operating suite, placed in lithotomy position. She was prepped and draped in the usual sterile fashion after induction of general endotracheal anesthesia. Brief timeout done stating correct patient, procedure, and surgical site. We were all in agreement with this. Attention first directed to the right lower quadrant previous small incisional scar. The patient received a TAP block prior to procedure commencement. Incision was made with an 11 blade. The Optiview Visiport 5 mm was done to enter the abdomen safely. Abdomen insufflated to 15 mm pneumoperitoneum. On cursory inspection, no evidence of injury. The patient was noted to have multiple intra-abdominal adhesions, especially adhesion to midline incision and a significant parastomal hernia with incarceration of omentum and adhesion to this. One of the port was placed, a Harmonic scalpel used to lyse adhesions and mobilize these after off the anterior abdominal wall. Once this was done, this allowed for a 12-point camera port just infraumbilical. This was done under direct visualization. The parastomal hernia was noted to have the end colostomy colon containing along with incarceration of omental fat. This was attempted to reduce laparoscopically with some difficulty. Then, decision was made to excise 2 mm of skin around the colostomy with electro Bovie electrocautery to the skin and further dissection with electro Bovie electrocautery. The pneumoperitoneum was removed at this point, and this directed to the parastomal hernia and its contents. The colon was manipulated and mobilized from its ostomy site. A RIAZ stapler 75 blue load was used to close the proximal end and remove a small section of colon. This was sent for pathology. The intraabdominal adhesions were incised using Metzenbaum scissors and electro Bovie cautery. Once the adhesions were mobilized from the parastomal hernia, the hernia sac was identified and this sac was resected and removed and electro Bovie cautery were used for hemostasis. The skin incision was extended 1 cm either side and minimally to the fascia. This allowed the facilitation of Olu wound protector. GelPort was also placed on top of this. The proximal colon was placed back within the abdomen, and the abdomen was re insufflated. Dr. Vizcarra performed a proctosigmoidoscopy. Dr. Vizcarra to dictate his portion of the procedure. Insufflation of the distal stump was necessary in order to assist in identifying the stump. Two marking sutures were noted. They were grasped as well to bring the distal stump in view. The proximal colon was noted to sit comfortably in the pelvis without any undue tension. Minimal mobilization was done to the white line and lateral attachments. Colon noted to be viable and pink, the proximal and distal ends. Decision at this point was made to create anastomosis using an Endo-RIAZ 60 blue load GI stapler. Colotomies were made in both the stump at the area of the tinea on the anterior mesenteric border and on the proximal antimesenteric border as well. A [id number] functional end-to-end stapled anastomosis was created with the Endo-RIAZ stapler blue load. The common [id number] layer was then approximated. This was done using the Endo RIAZ blue load stapler as well. The bowel was then irrigated thoroughly and saline test was done. Clamp placed proximal on the bowel and the proctosigmoidoscopy insufflated to identify any leaking or bubbling. There is noted to be small bubbling at the medial crotch area. Therefore, a second load Endo GI stapler was used to close this small leak. Reinsufflation and testing noted no evidence of leak at this time. The staple line was then oversewn and approximated in a dual layer technique to reinforce the staple line and a crotch stitch was also placed as well. This was done with 3-0 Vicryl sutures. A small piece of omentum was sutured across the anastomosis. Suction irrigation done thoroughly to the pelvis. Next, a 10-[place], round Vazquez drain was placed in the pelvis and placed out through the trocar site in the right lower quadrant and attached with a 3-0 nylon suture. Next, the abdomen was then desufflated. The attention was then redirected to the parastomal hernia in which the Olu wound protector was removed and the hernia was closed in layers. 0 Vicryl used to close the peritoneal layer. The fascia was then closed with #1 PDS in an interrupted [id number] fashion. A second running PDS was done for assisted approximation of the fascia. Irrigation done to the cavity. A small round Vazquez 10-[place] drain was placed in a separate stab karol incision to the left lower quadrant and placed within the subcutaneous cavity. This was secured in place with a 3-0 nylon suture. Next, gauri were then done to approximate the cavity and closed the skin and a JOSH dressing was placed. A sterile dressing was placed at all incisions. The patient tolerated the procedure well. All lap and instrument counts were correct at the end of the procedure. The patient was extubated and taken stable to PACU. Dr. Vizcarra assisted throughout the entire case. Dr. Vizcarra assisted due to the complexity of the laparoscopic case with camera control and retraction and performed a proctosigmoidoscopy. Again refer to Dr. Vizcarra's dictation for this portion of the procedure. MD CONCEPCION Lind/yaya , 05:50 PM , 06:06 PM
[2018-10-24] MEDS: Budesonide-Formoterol 160/4.5 MCG 6 GM Inhaler INH SCH (20:52)
[2018-10-24] MEDS: Sertraline 50 MG Tablet PO SCH (20:52)
[2018-10-25] MEDS: Sod Chloride 0.9% Inj 1,000 ML IV.CONT SCH ×4 (03:01→20:12)
[2018-10-25] MEDS: Morphine Inj 30 MG/30 ML PCA.VIAL PCA PRN (06:03)
--- NOTE | 2018-10-25 08:56 | MP ---
cc: Nehemias Vizcarra MD DATE OF OPERATION: 10/23/2018 PREOPERATIVE DIAGNOSES: 1. History of perforated diverticulitis. 2. Attention to colostomy. POSTOPERATIVE DIAGNOSES: 1. History of perforated diverticulitis. 2. Attention to colostomy. PROCEDURE: Rigid proctoscopy. ATTENDING SURGEON: Nehemias Vizcarra MD ASSISTANTS: None. ANESTHESIA: General. BLOOD LOSS: Zero. COMPLICATIONS: None. FINDINGS: 1. A small amount of mucus in the rectum. 2. Normal rectum and rectosigmoid junction on rigid proctoscopy. INDICATIONS FOR PROCEDURE: The patient is a 57-year-old female who has a history of perforated diverticulitis, status post exploratory laparotomy and a Tam-type procedure. The patient has a colostomy, a large parastomal hernia, and was a candidate for reversal. The patient was taken to the operating room by Dr. Huey Agee for parastomal hernia repair and laparoscopic reversal of colostomy. I was asked to perform rigid proctoscopy during the procedure to assess the rectum and rectosigmoid for abnormalities for consideration of colostomy reversal as well as to assist in the procedure for reanastomosis. DESCRIPTION OF PROCEDURE: While the patient was undergoing surgical procedure by Dr. Agee and while I was assisting him during the operation and while the patient was under general anesthesia, it was indicated to perform rigid proctoscopy on the patient. The patient needed rigid proctoscopy to assess the patency and viability and to make sure the rectum was clear prior to any potential reanastomosis of the proximal colon to the distal sigmoid and rectum. The patient underwent a digital rectal exam by myself with dilation of the anal sphincter. There was some mucus that was removed and suctioned clear. A rigid proctoscope was placed gently transanally, and under visualization with air insufflation, this was advanced slowly up from the distal rectum up to the mid and proximal rectum and up to the rectosigmoid junction. This was the extent of our proctoscope, and we were able to assess the entire rectum and up to the rectosigmoid, which was completely normal on assessment. There was no stricture, masses, or diverticulum, or any inflammation noted. Once this was performed, we did also perform some air insufflation after the anastomosis with the proctoscope to assess for any leak at the stapled anastomosis. There was no leak noted clinically in the operating room. We then again expressed all air insufflation from the rectum and removed the proctoscope. The patient tolerated this proctoscope easily without any blood loss and without any sign of any complication. Please see Dr. Agee's complete dictated note for the colostomy reversal and other procedures performed. MD SYED Lewis/shaylee , 08:37 AM , 08:45 AM
[2018-10-25] MEDS: Montelukast 10 MG Tablet PO SCH (08:58)
[2018-10-25] MEDS: Allopurinol 100 MG Tablet PO SCH (08:58)
[2018-10-25] MEDS: Senna/Docusate Sodium 8.6/50 MG Tablet PO SCH ×2 (08:58→20:12)
[2018-10-25] MEDS: Sodium Chloride 0.9% 2 ML Flush BID IV.FLUSH SCH ×2 (09:00→20:23)
[2018-10-25] MEDS ORDERED: SPIRIVA RESPIMAT INH SCH (09:00)
[2018-10-25] MEDS: Budesonide-Formoterol 160/4.5 MCG 6 GM Inhaler INH SCH ×2 (09:00→20:14)
--- NOTE | 2018-10-25 10:21 | P.PNGS ---
Subjective Interval history: Sitting on the side of the bed Has redness over BUE Physical Exam Vital signs: Vital Signs 10/24/18 11:07 10/24/18 12:00 10/24/18 17:06 Temperature 97.9 F 98.0 F Pulse Rate 93 H 94 H Respiratory Rate 22 18 Blood Pressure 137/69 134/67 143/72 H Pulse Oximetry 96 97 10/24/18 20:00 10/24/18 23:52 10/25/18 00:00 Temperature 98.3 F 100 F H Pulse Rate 101 H 105 H Respiratory Rate 17 18 19 Blood Pressure 124/70 163/78 H Pulse Oximetry 96 96 10/25/18 04:00 Temperature 98.6 F Pulse Rate 97 H Respiratory Rate 18 Blood Pressure 163/80 H Pulse Oximetry 98 Intake & Output 10/24/18 10/25/18 10/25/18 18:59 06:59 18:59 Intake Total 3380.3 / 3380.3 1760 / 1760 Output Total 2645 / 2645 2663 / 2663 Balance 735.3 / 735.3 -903 / -903 Weight 110.2 kg Intake: IV 1780.3 / 1780.3 1000 / 1000 NS Inj 1,000 ML @ 100 mls/hr IV 1580.3 / 1580.3 1000 / 1000 .CONT .Q10H SHANDRA Rx#:[id number] Ancef 1 GM Premix Inj 1 gm In 100 / 100 50 ml @ 100 mls/hr IV.SIG Q8H SHANDRA Rx#:[id number] Flagyl 500 MG Inj 100 ML @ 200 100 / 100 mls/hr IV.SIG Q8H SHANDRA Rx#: [id number] Oral 1600 / 1600 760 / 760 Output: Urine 2150 / 2150 Urine Amount (Catheter) 2600 / 2600 500 / 500 Indwelling Urethral Catheter 2600 / 2600 500 / 500 Wound Drainage 45 / 45 # 1 Abdomen 30 / 30 5 / 5 # 2 Abdomen 15 15 8 Other: Date of Last Bowel Movement 10/23/18 10/23/18 Narrative: Alert and awake Abd : soft; minimally tender; NAT x2 with serosanguineous drainage; JOSH in place BUE skin in red; no visible raise area or bumps - Urinary Catheter Management Indwelling Urethral Catheter Cath placed during this visit: yes, but has since been removed by the nurse Reason for continuing: Decision to DC catheter Insertion date: 10/23/18 Insertion time: 16:51 Removal date: 10/25/18 Removal time: 05:40 Results - Labs 10/25/18 10:09 10/25/18 10:09 Laboratory Results - last 24 hr 10/24/18 10/24/18 12:21 12:21 WBC 10.6 RBC 4.32 Hgb 13.6 Hct 37.3 MCV 86.4 MCH 31.4 MCHC 36.4 H RDW 14.4 Plt Count 281 MPV 8.8 Prelim Diff (Auto) Slide review pending Neut % (Auto) 81.1 H Lymph % (Auto) 8.7 L [place] % (Auto) 10.1 H Eos % (Auto) 0.0 Baso % (Auto) 0.1 Neut # (Auto) 8.6 H Lymph # (Auto) 0.9 L [place] # (Auto) 1.1 H Eos # (Auto) 0.0 Baso # (Auto) 0.0 WBC Differential . Diff Scan Auto diff confirmed Differential Comment . Sodium 140 Potassium 3.5 Chloride 106 Carbon Dioxide 26.6 Anion Gap 7 BUN 9 Creatinine 0.71 Estimated GFR 85 L Random Glucose 103 Calcium 9.1 - Imaging Imaging: ITS Impressions Knee X-Ray 10/24/18 00:00 CONCLUSION: Negative trauma study. 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 I reviewed and agree with the findings presented. I attest that I had a [id number] encounter with the patient on the same day, and personally performed and documented my assessment and findings in the medical record.
[2018-10-25 10:33] LABS: Baso % (Auto) 0.3 % (0.0-2.0); Eos % (Auto) 0.4 % (0.0-4.0); Hematocrit 37.9 % (35.0-46.0); Lymph # (Auto) 2.4 th/mm3 (1.0-4.8); Lymph % (Auto) 24.1 % (9.0-44.0); Mean Corpuscular HGB Conc 34.4 % (32.0-36.0); Mean Corpuscular Hemoglobin 30.2 pg (27.0-34.0); Mean Platelet Volume 8.6 fL (7.0-11.0); Mono # (Auto) 1.2 th/mm3 (0.0-0.9); Mono % (Auto) 11.7 % (0.0-8.0); Neut # (Auto) 6.4 th/mm3 (1.8-7.7); Neut % (Auto) 63.5 % (16.0-70.0); Platelet Count 278 th/mm3 (150-450); White Blood Count 10.1 th/mm3 (4.0-11.0)
[2018-10-25 11:04] LABS: Anion Gap 8 meq/L (5-15); Blood Urea Nitrogen 6 mg/dL (7-18); Calcium 8.5 mg/dL (8.5-10.1); Carbon Dioxide 24.4 meq/L (21.0-32.0); Chloride 109 meq/L (98-107); Glucose,Random 102 mg/dL (74-106); Potassium 3.2 meq/L (3.5-5.1); Sodium 141 meq/L (136-145)
[2018-10-25 11:07] LABS: Glomerular Filtration Rate Greater Than 89 mL/min (>89)
--- NOTE | 2018-10-25 11:23 | P.PN ---
Subjective Interval history: The patient complains of rash on her face neck and upper arms mostly. Says she cannot take steroids as she was taking too much for asthma before and thinks is how she got in trouble with her abdomen. The patient received Benadryl however and she feels much better rash is improving. Says she is also allergic to Toradol and had a similar rash before. Says rash is getting worse when she is touching linen Complains of right knee pain and swelling, however x-ray does not show any fractures. Patient says improving. No fever or chills overnight. No nausea or vomiting. No diarrhea or constipation. Physical Exam Vital signs: Vital Signs 10/24/18 12:00 10/24/18 17:06 10/24/18 20:00 Temperature 97.9 F 98.0 F 98.3 F Pulse Rate 93 H 94 H 101 H Respiratory Rate 22 18 17 Blood Pressure 134/67 143/72 H 124/70 Pulse Oximetry 96 97 96 10/24/18 23:52 10/25/18 00:00 10/25/18 04:00 Temperature 100 F H 98.6 F Pulse Rate 105 H 97 H Respiratory Rate 18 19 18 Blood Pressure 163/78 H 163/80 H Pulse Oximetry 96 98 Intake & Output 10/24/18 10/25/18 10/25/18 18:59 06:59 18:59 Intake Total 3380.3 / 3380.3 1760 / 1760 Output Total 2645 / 2645 2663 / 2663 Balance 735.3 / 735.3 -903 / -903 Weight 110.2 kg Intake: IV 1780.3 / 1780.3 1000 / 1000 NS Inj 1,000 ML @ 100 mls/hr IV 1580.3 / 1580.3 1000 / 1000 .CONT .Q10H SHANDRA Rx#:[id number] Ancef 1 GM Premix Inj 1 gm In 100 / 100 50 ml @ 100 mls/hr IV.SIG Q8H SHANDRA Rx#:[id number] Flagyl 500 MG Inj 100 ML @ 200 100 / 100 mls/hr IV.SIG Q8H SHANDRA Rx#: [id number] Oral 1600 / 1600 760 / 760 Output: Urine 2150 / 2150 Urine Amount (Catheter) 2600 / 2600 500 / 500 Indwelling Urethral Catheter 2600 / 2600 500 / 500 Wound Drainage 45 / 45 # 1 Abdomen 30 5 / 5 # 2 Abdomen 8 Other: Date of Last Bowel Movement 10/23/18 10/23/18 Narrative: GENERAL: 57 yo female, appears in nad SKIN: Pruritic rash on the face, neck upper arms improving CARDIOVASCULAR: Regular rate and rhythm without murmurs, gallops, or rubs. RESPIRATORY: Breath sounds equal bilaterally. No accessory muscle use. GASTROINTESTINAL: Abdomen soft. Mild tenderness at the surgical site. NAT x2 with serosanguineous drainage; JOSH in place MUSCULOSKELETAL: No cyanosis, or edema. BACK: Nontender without obvious deformity. No CVA tenderness. - Urinary Catheter Management Indwelling Urethral Catheter Cath placed during this visit: yes, but has since been removed by the nurse Reason for continuing: Decision to DC catheter Insertion date: 10/23/18 Insertion time: 16:51 Removal date: 10/25/18 Removal time: 05:40 Results - Labs CBC & Chem 7: 10/25/18 10:09 10/25/18 10:09 Laboratory Results - last 24 hr 10/24/18 10/24/18 10/25/18 12:21 12:21 10:09 WBC 10.6 10.1 RBC 4.32 4.30 Hgb 13.6 13.0 Hct 37.3 37.9 MCV 86.4 88.0 MCH 31.4 30.2 MCHC 36.4 H 34.4 RDW 14.4 15.0 Plt Count 281 278 MPV 8.8 8.6 Prelim Diff (Auto) Slide review pending Neut % (Auto) 81.1 H 63.5 Lymph % (Auto) 8.7 L 24.1 Lewis % (Auto) 10.1 H 11.7 H Eos % (Auto) 0.0 0.4 Baso % (Auto) 0.1 0.3 Neut # (Auto) 8.6 H 6.4 Lymph # (Auto) 0.9 L 2.4 Lewis # (Auto) 1.1 H 1.2 H Eos # (Auto) 0.0 0.0 Baso # (Auto) 0.0 0.0 WBC Differential . . Diff Scan Auto diff confirmed Differential Comment . Auto diff final Sodium 140 Potassium 3.5 Chloride 106 Carbon Dioxide 26.6 Anion Gap 7 BUN 9 Creatinine 0.71 Estimated GFR 85 L Random Glucose 103 Calcium 9.1 10/25/18 10:09 WBC RBC Hgb Hct MCV MCH MCHC RDW Plt Count MPV Prelim Diff (Auto) Neut % (Auto) Lymph % (Auto) Lewis % (Auto) Eos % (Auto) Baso % (Auto) Neut # (Auto) Lymph # (Auto) Lewis # (Auto) Eos # (Auto) Baso # (Auto) WBC Differential Diff Scan Differential Comment Sodium 141 Potassium 3.2 L Chloride 109 H Carbon Dioxide 24.4 Anion Gap 8 BUN 6 L Creatinine 0.63 Estimated GFR Greater than 89 Random Glucose 102 Calcium 8.5 - Imaging Impressions Knee X-Ray 10/24/18 00:00 CONCLUSION: Negative trauma study. - Procedures s/p dx lap, colostomy takedown, proctosigmoidoscopy, repair of parastomal hernia on 10/23/18 . Assessment and Plan - Assessment (1) S/P colostomy takedown Code(s): Z98.890 - Other specified postprocedural states Status: Acute - Plan S/P colostomy takedown: - history of diverticulosis/ bowel perforation/ colectomy/ colostomy placement- now s/p dx lap, colostomy takedown, proctosigmoidoscopy, repair of parastomal hernia on 10/23/18 . continue with pain control- management per general surgery. -asthma with no exacerbation; resume home inhalers; will add duoned as needed. -right knee swelling/ pain ; will check XR of the right knee- continue pain control. -hypertension; resume Losartan- vasotec as needed; will continue to monitor and adjsut the regimen as needed. -pruritic rash on face, neck , upper arms. Improving with Benadryl. [place] changed to hypo-allergenic -DVT prophylaxis; per general surgery. Discharge Planning: per general surgery.
[2018-10-25] MEDS: diphenhydrAMINE 2%/Zinc Cream 30 GM Tube TOPICAL PRN ×2 (12:17→20:13)
[2018-10-25] MEDS: Sertraline 50 MG Tablet PO SCH (20:12)
[2018-10-26] MEDS: Morphine Inj 30 MG/30 ML PCA.VIAL PCA PRN (06:45)
[2018-10-26 07:43] LABS: Baso % (Auto) 0.3 % (0.0-2.0); Eos # (Auto) 0.1 th/mm3 (0.0-0.4); Eos % (Auto) 2.3 % (0.0-4.0); Hematocrit 34.4 % (35.0-46.0); Hemoglobin 11.9 gm/dL (11.6-15.3); Lymph # (Auto) 1.9 th/mm3 (1.0-4.8); Mean Corpuscular HGB Conc 34.7 % (32.0-36.0); Mean Corpuscular Hemoglobin 29.9 pg (27.0-34.0); Mean Corpuscular Volume 86.3 fL (80.0-100.0); Mean Platelet Volume 8.9 fL (7.0-11.0); Mono # (Auto) 0.8 th/mm3 (0.0-0.9); Mono % (Auto) 12.3 % (0.0-8.0); Neut # (Auto) 3.4 th/mm3 (1.8-7.7); Neut % (Auto) 54.1 % (16.0-70.0); Platelet Count 237 th/mm3 (150-450); Red Blood Count 3.99 mil/mm3 (4.00-5.30); Red Cell Distribution Width 14.3 % (11.6-17.2); White Blood Count 6.2 th/mm3 (4.0-11.0)
[2018-10-26 08:05] LABS: Anion Gap 6 meq/L (5-15); Blood Urea Nitrogen 4 mg/dL (7-18); Calcium 8.3 mg/dL (8.5-10.1); Chloride 107 meq/L (98-107); Glomerular Filtration Rate Greater Than 89 mL/min (>89); Glucose,Random 84 mg/dL (74-106); Potassium 3.1 meq/L (3.5-5.1); Sodium 141 meq/L (136-145)
[2018-10-26] MEDS: Sod Chloride 0.9% Inj 1,000 ML IV.CONT SCH ×2 (08:28→17:07)
[2018-10-26] MEDS: Sodium Chloride 0.9% 2 ML Flush BID IV.FLUSH SCH ×2 (08:29→20:45)
[2018-10-26] MEDS: Senna/Docusate Sodium 8.6/50 MG Tablet PO SCH ×2 (08:29→20:45)
[2018-10-26] MEDS: Enoxaparin Inj 40 MG/0.4 ML Syringe SQ SCH (08:29)
[2018-10-26] MEDS: Montelukast 10 MG Tablet PO SCH (08:29)
[2018-10-26] MEDS: Allopurinol 100 MG Tablet PO SCH (08:29)
[2018-10-26] MEDS: Budesonide-Formoterol 160/4.5 MCG 6 GM Inhaler INH SCH ×2 (08:32→20:46)
--- NOTE | 2018-10-26 14:49 | P.PN ---
Subjective Interval history: Rash resolved with Benadryl and changing linen No fever or chills overnight Ambulating with help No cp, sob. No nausea. Able to derian diet Had diarrhea yesterday no BM today but passing a lot of gas Physical Exam Vital signs: Vital Signs 10/25/18 16:00 10/25/18 20:00 10/26/18 00:00 Temperature 98.3 F 98.4 F 98.4 F Pulse Rate 85 89 96 H Respiratory Rate 18 20 18 Blood Pressure 158/76 H 166/74 H 153/81 H Pulse Oximetry 96 98 98 10/26/18 04:00 10/26/18 08:00 Temperature 97.8 F 97.9 F Pulse Rate 86 87 Respiratory Rate 18 20 Blood Pressure 142/63 H 164/86 H Pulse Oximetry 95 94 L Intake & Output 10/25/18 10/26/18 10/26/18 18:59 06:59 18:59 Intake Total 1593 / 1593 607 / 607 Output Total 1200 / 1200 1728 / 1728 Balance 393 / 393 -1121 / -1121 Weight 104.7 kg Intake: IV 873 / 873 127 / 127 NS Inj 1,000 ML @ 100 mls/hr IV 873 / 873 127 / 127 .CONT .Q10H SHANDRA Rx#:[id number] Oral 720 / 720 480 / 480 Output: Urine 1200 / 1200 1700 / 1700 Wound Drainage # 1 Abdomen / # 2 Abdomen Other: Date of Last Bowel Movement 10/25/18 # Bowel Movements 1 Narrative: GENERAL: 57 yo female, appears in nad SKIN: Rash improved significantly on her face, neck and arms. CARDIOVASCULAR: Regular rate and rhythm without murmurs, gallops, or rubs. RESPIRATORY: Breath sounds equal bilaterally. No accessory muscle use. GASTROINTESTINAL: Abdomen soft. Mild tenderness at the surgical site. NAT x2 with serosanguineous drainage; JOSH in place MUSCULOSKELETAL: No cyanosis, or edema. BACK: Nontender without obvious deformity. No CVA tenderness. - Urinary Catheter Management Indwelling Urethral Catheter Cath placed during this visit: yes, but has since been removed by the nurse Reason for continuing: Decision to DC catheter Insertion date: 10/23/18 Insertion time: 16:51 Removal date: 10/25/18 Removal time: 05:40 Results - Labs CBC & Chem 7: 12/15/18 06:35 10/26/18 06:35 Laboratory Results - last 24 hr 10/26/18 10/26/18 06:35 06:35 WBC 6.2 RBC 3.99 L Hgb 11.9 Hct 34.4 L MCV 86.3 MCH 29.9 MCHC 34.7 RDW 14.3 Plt Count 237 MPV 8.9 Neut % (Auto) 54.1 Lymph % (Auto) 31.0 [place] % (Auto) 12.3 H Eos % (Auto) 2.3 Baso % (Auto) 0.3 Neut # (Auto) 3.4 Lymph # (Auto) 1.9 [place] # (Auto) 0.8 Eos # (Auto) 0.1 Baso # (Auto) 0.0 WBC Differential . Differential Comment Auto diff final Sodium 141 Potassium 3.1 L Chloride 107 Carbon Dioxide 28.0 Anion Gap 6 BUN 4 L Creatinine 0.49 L Estimated GFR Greater than 89 Random Glucose 84 Uric Acid 4.0 Calcium 8.3 L - Procedures s/p dx lap, colostomy takedown, proctosigmoidoscopy, repair of parastomal hernia on 10/23/18 . Assessment and Plan - Assessment (1) S/P colostomy takedown Code(s): Z98.890 - Other specified postprocedural states Status: Acute - Plan S/P colostomy takedown: - history of diverticulosis/ bowel perforation/ colectomy/ colostomy placement- now s/p dx lap, colostomy takedown, proctosigmoidoscopy, repair of parastomal hernia on 10/23/18 . continue with pain control- management per general surgery. -asthma with no exacerbation; resume home inhalers; will add duoned as needed. -right knee swelling/ pain ; will check XR of the right knee- continue pain control. -hypertension; resume Losartan- vasotec as needed; will continue to monitor and adjsut the regimen as needed. -pruritic rash on face, neck , upper arms. Improving with Benadryl. [place] changed to hypo-allergenic. -DVT prophylaxis; per general surgery. Discharge Planning: per general surgery.
--- NOTE | 2018-10-26 16:05 | P.PNGS ---
Subjective Patient reports: feels better, pain is less, tolerating liquids well, flatus, bowel movement Interval history: DAILY PROGRESS NOTE FOR SURGICAL ATTENDING, DR. SHANTELLE MCKEON Tolerating diet well would like to advance Pain is under control Tolerating p.o. pain medication Physical Exam Vital signs: Vital Signs 10/25/18 20:00 10/26/18 00:00 10/26/18 04:00 Temperature 98.4 F 98.4 F 97.8 F Pulse Rate 89 96 H 86 Respiratory Rate 20 18 18 Blood Pressure 166/74 H 153/81 H 142/63 H Pulse Oximetry 98 98 95 10/26/18 08:00 Temperature 97.9 F Pulse Rate 87 Respiratory Rate 20 Blood Pressure 164/86 H Pulse Oximetry 94 L Intake & Output 10/25/18 10/26/18 10/26/18 18:59 06:59 18:59 Intake Total 1593 / 1593 607 / 607 1000 / 1000 Output Total 1200 / 1200 1728 / 1728 Balance 393 / 393 -1121 / -1121 1000 / 1000 Weight 104.7 kg Intake: IV 873 / 873 127 / 127 1000 / 1000 NS Inj 1,000 ML @ 100 mls/hr IV 873 / 873 127 / 127 1000 / 1000 .CONT .Q10H [facility] Rx#:[id number] Oral 720 / 720 480 / 480 Output: Urine 1200 / 1200 1700 / 1700 Wound Drainage # 1 Abdomen 5 / 5 # 2 Abdomen Other: Date of Last Bowel Movement 10/25/18 # Bowel Movements 1 Narrative: Sitting at side of the bed. Comfortable Good inspiratory effort NAT Susan sanguinous drainage Caro dressing intact Abdominal binder in place - Urinary Catheter Management Indwelling Urethral Catheter Cath placed during this visit: yes, but has since been removed by the nurse Reason for continuing: Decision to DC catheter Insertion date: 10/23/18 Insertion time: 16:51 Removal date: 10/25/18 Removal time: 05:40 Results - Labs 10/26/18 06:35 10/26/18 06:35 Laboratory Results - last 24 hr 10/26/18 10/26/18 06:35 06:35 WBC 6.2 RBC 3.99 L Hgb 11.9 Hct 34.4 L MCV 86.3 MCH 29.9 MCHC 34.7 RDW 14.3 Plt Count 237 MPV 8.9 Neut % (Auto) 54.1 Lymph % (Auto) 31.0 [place] % (Auto) 12.3 H Eos % (Auto) 2.3 Baso % (Auto) 0.3 Neut # (Auto) 3.4 Lymph # (Auto) 1.9 [place] # (Auto) 0.8 Eos # (Auto) 0.1 Baso # (Auto) 0.0 WBC Differential . Differential Comment Auto diff final Sodium 141 Potassium 3.1 L Chloride 107 Carbon Dioxide 28.0 Anion Gap 6 BUN 4 L Creatinine 0.49 L Estimated GFR Greater than 89 Random Glucose 84 Uric Acid 4.0 Calcium 8.3 L - Imaging Imaging: ITS Impressions Knee X-Ray 10/24/18 00:00 CONCLUSION: Negative trauma study. 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 pain medication -OOB as tolerated - - Attending Attestation NOTE FOR SURGICAL ATTENDING, DR. SHANTELLE MCKEON I attest that I had a [id number] encounter with the patient on the same day, and personally performed and documented my assessment and findings in the medical record. The following services were provided during this hospital visit: Chart data review, vital sign assessments/reviewing monitor data Review of consultations notes if present. Medication orders/review and/or management Ordering and/or reviewing lab tests Ordering and/or interpreting/reviewing x-rays and/or diagnostic studies Care of the patient and discussion of the patient with the care team Documentation time To help prompt me to consider important information that might be impacting today's encounter and assessment, Information from prior notes written by myself or my colleagues may have been "brought forward/copy and pasted" into today's note.
[2018-10-26] MEDS: Sertraline 50 MG Tablet PO SCH (20:45)
[2018-10-27] MEDS: Sod Chloride 0.9% Inj 1,000 ML IV.CONT SCH ×2 (00:54→12:45)
[2018-10-27] MEDS: Senna/Docusate Sodium 8.6/50 MG Tablet PO SCH (08:56)
[2018-10-27] MEDS: Allopurinol 100 MG Tablet PO SCH (08:56)
[2018-10-27] MEDS: Montelukast 10 MG Tablet PO SCH (08:56)
[2018-10-27] MEDS: Enoxaparin Inj 40 MG/0.4 ML Syringe SQ SCH (08:58)
[2018-10-27] MEDS: Budesonide-Formoterol 160/4.5 MCG 6 GM Inhaler INH SCH (08:58)
[2018-10-27] MEDS: Sodium Chloride 0.9% 2 ML Flush BID IV.FLUSH SCH (08:59)
--- NOTE | 2018-10-27 10:57 | P.PN ---
Subjective Interval history: Diet advanced per surgery, tolerates well. Feels better , hopes she will go home soon Able to ambulate. No n/v/d/c. No more rash , resolved. Physical Exam Vital signs: Vital Signs 10/26/18 12:00 10/26/18 16:00 10/26/18 20:00 Temperature 97.8 F 98.2 F 98.6 F Pulse Rate 96 H 83 92 H Respiratory Rate 20 20 18 Blood Pressure 161/76 H 132/61 159/75 H Pulse Oximetry 96 96 98 10/27/18 00:00 10/27/18 04:38 10/27/18 08:00 Temperature 99.2 F 97.9 F Pulse Rate 92 H 83 Respiratory Rate 18 6 L 18 Blood Pressure 166/81 H 169/79 H Pulse Oximetry 97 97 Intake & Output 10/26/18 10/27/18 10/27/18 18:59 06:59 18:59 Intake Total 2680 / 2680 Output Total 820 / 820 Balance 2680 / 2680 -820 / -820 Weight 104.4 kg Intake: IV 1000 / 1000 NS Inj 1,000 ML @ 100 mls/hr IV 1000 / 1000 .CONT .Q10H SHANDRA Rx#:[id number] Oral 1680 / 1680 Output: Urine 800 / 800 Wound Drainage / # 1 Abdomen 10 / 10 # 2 Abdomen 10 / 10 Other: # Voids 6 # Bowel Movements 0 Narrative: GENERAL: Pleasant 57 yo female, appears in nad SKIN: Rash improved significantly on her face, neck and arms. CARDIOVASCULAR: Regular rate and rhythm without murmurs, gallops, or rubs. RESPIRATORY: Breath sounds equal bilaterally. No accessory muscle use. GASTROINTESTINAL: Abdomen soft. Mild tenderness at the surgical site. NAT x2 with serosanguineous drainage; JOSH in place MUSCULOSKELETAL: No cyanosis, or edema. BACK: Nontender without obvious deformity. No CVA tenderness. - Urinary Catheter Management Indwelling Urethral Catheter Cath placed during this visit: yes, but has since been removed by the nurse Reason for continuing: Decision to DC catheter Insertion date: 10/23/18 Insertion time: 16:51 Removal date: 10/25/18 Removal time: 05:40 Results - Labs CBC & Chem 7: 10/26/18 06:35 10/26/18 06:35 - Procedures s/p dx lap, colostomy takedown, proctosigmoidoscopy, repair of parastomal hernia on 10/23/18 . Assessment and Plan - Assessment (1) S/P colostomy takedown Code(s): Z98.890 - Other specified postprocedural states Status: Acute - Plan S/P colostomy takedown: - history of diverticulosis/ bowel perforation/ colectomy/ colostomy placement- now s/p dx lap, colostomy takedown, proctosigmoidoscopy, repair of parastomal hernia on 10/23/18 . continue with pain control- management per general surgery. -asthma with no exacerbation; resume home inhalers; will add duoned as needed. -right knee swelling/ pain ; will check XR of the right knee- continue pain control. -hypertension; resume Losartan- vasotec as needed; will continue to monitor and adjsut the regimen as needed. -pruritic rash on face, neck , upper arms. Improving with Benadryl. [place] changed to hypo-allergenic. -DVT prophylaxis; per general surgery. Discharge Planning: per general surgery.
--- NOTE | 2018-10-27 19:00 | P.PN ---
Subjective Interval history: Feels well; comfortable; tolerating pain with oral medicine only. Is moving her bowels. Physical Exam Vital signs: Vital Signs 10/26/18 20:00 10/27/18 00:00 10/27/18 04:38 Temperature 98.6 F 99.2 F Pulse Rate 92 H 92 H Respiratory Rate 18 18 6 L Blood Pressure 159/75 H 166/81 H Pulse Oximetry 98 97 10/27/18 08:00 10/27/18 12:00 10/27/18 16:00 Temperature 97.9 F 98.0 F 97.3 F L Pulse Rate 83 88 77 Respiratory Rate 18 18 18 Blood Pressure 169/79 H 160/80 H 150/83 H Pulse Oximetry 97 97 98 Intake & Output 10/26/18 10/27/18 10/27/18 18:59 06:59 18:59 Intake Total 2680 / 2680 Output Total 820 / 820 10 / 10 Balance 2680 / 2680 -820 / -820 -10 / -10 Weight 104.4 kg Intake: IV 1000 / 1000 NS Inj 1,000 ML @ 100 mls/hr IV 1000 / 1000 .CONT .Q10H SHANDRA Rx#:[id number] Oral 1680 / 1680 Output: Urine 800 / 800 Wound Drainage 10 10 # 1 Abdomen 10 10 5 / 5 # 2 Abdomen 10 10 5 / 5 Other: # Voids 6 # Bowel Movements 0 - Constitutional no acute distress - Routine HEENT Exam Head: Present: normocephalic, atraumatic - Routine Neck Exam Present: supple - Routine Respiratory Exam Present: CTA bilaterally - Routine Cardiovascular Exam Present: RRR - Routine Abdominal Exam Present: soft, normoactive bowel sounds, wound (Very minimal greenish drainage on the lateral portion of the jp dressing) - Urinary Catheter Management Indwelling Urethral Catheter Cath placed during this visit: yes, but has since been removed by the nurse Reason for continuing: Decision to DC catheter Insertion date: 10/23/18 Insertion time: 16:51 Removal date: 10/25/18 Removal time: 05:40 Results - Labs CBC & Chem 7: 10/26/18 06:35 10/26/18 06:35 - Procedures s/p dx lap, colostomy takedown, proctosigmoidoscopy, repair of parastomal hernia on 10/23/18 . Assessment and Plan - Assessment (1) S/P colostomy takedown Code(s): Z98.890 - Other specified postprocedural states Status: Acute Plan: Home today. Follow-up with Dr. Agee this week. Jp dressing can be removed when Dr. Agee sees her in the office. Prescription for [place] given to the patient. - Attending Attestation I attest that I had a [id number] encounter with the patient on the same day, and personally performed and documented my assessment and findings in the medical record. The following services were provided during this hospital visit: Chart data review, vital sign assessments/reviewing monitor data Review of consultation notes if present Medication orders/review and/or management Ordering and/or reviewing lab tests Ordering and/or interpreting/reviewing x-rays and/or diagnostic studies Care of the patient and discussion of the patient with the care team Documentation time To help prompt me to consider important information that might be impacting today's encounter and assessment, Information from prior notes written by myself or my colleagues may have been "brought forward/copy and pasted" into today's note.
== END 2018-10-27 18:56 | disposition home or self-care (01) ==
LOC: HSDI 11:51 → N07 22:46
PROVIDERS: ADMIT Surgery; ATTEND Surgery